=== PATIENT | male | born 1950 | race Caucasian/White ===

== ENCOUNTER → 2021-08-07 14:40 | Outpatient (CLI) | payer OTHER, SELFPAY ==
--- NOTE | 2021-08-07 | DI.ECHO.S_ITS ---
[facility] +---------+ : : [address] : : : : [id number] : : : : Phone: [phone]+ Echocardiogram Report + + :Name: DEMOND FERNANDEZ Study Date: 08/07/2021 Height: 73 in : :[facility] ReadingLocation: Weight: 255 lb : : Gender: Male BSA: 2.4 m2 : :: 1950 Age: 71 yrs BP: 160/88 mmHg: :Reason For Study: Congestive Heart Failure : : Performed By: Mahesh Cummins : :Referring: CRISTIANO CHANDLER W : + + Interpretation Summary The left ventricle is normal in size. There is mild concentric left ventricular hypertrophy. The ejection fraction is estimated to be 55-60%. MV E/A: 1.3 Med Peak E' Johnathan: 7.6 cm/sec E/E' med: 11.0 The right ventricle is normal in size and function. There is mild to moderate mitral regurgitation. There is mild to moderate tricuspid regurgitation. The right ventricular systolic pressure is estimated to be at least 33 mmHg based on an estimated right atrial pressure of 3 mm Hg. However Doppler profile across pulmonary valve suggest pulmonary hypertension. Procedure: A two-dimensional transthoracic echocardiogram with color flow and Doppler was performed. The study quality was technically adequate. The patient was in normal sinus rhythm during the exam. The patient had a bundle branch block rhythm during the exam. The patient had frequent PVCs during the exam. Left Ventricle: The left ventricle is normal in size. There is mild concentric left ventricular hypertrophy. There is no thrombus. Left ventricular systolic function is normal. The ejection fraction is estimated to be 55-60%. There are no focal wall motion abnormalities. MV E/A: 1.3 Med Peak E' Johnathan: 7.6 cm/sec E/E' med: 11.0. Right Ventricle: The right ventricle is normal in size and function. Atria: The left atrium is mildly dilated. Right atrial size is normal. A prominent eustachian valve is noted. The interatrial septum grossly appears intact with no obvious evidence for an atrial septal defect. Mitral Valve: The mitral valve leaflets are slightly calcified. The mitral valve leaflets appear mildly thickened, but open well. There is mild to moderate mitral regurgitation. Aortic Valve: The aortic valve is normal in structure and function. The aortic valve is trileaflet. There is no aortic valve stenosis. No aortic regurgitation is present. Tricuspid Valve: The tricuspid valve is normal. There is mild to moderate tricuspid regurgitation. The right ventricular systolic pressure is estimated to be at least 33 mmHg based on an estimated right atrial pressure of 3 mm Hg. Pulmonic Valve: The pulmonic valve is normal in structure and function. There is trace pulmonic regurgitation. Great Vessels: The aortic root is normal size. The dimensions of the ascending aorta are normal. The IVC is of normal diameter and collapses greater than 50% with a sniff. This suggests a low right atrial pressure of 3 mm Hg. Pericardium/ Pleura There is no pericardial effusion. There is no pleural effusion. MMode/2D Measurements & Calculations LVIDd: 5.4 cm LVOT diam: 2.1 cm LVIDs: 3.4 cm Ao root diam: 3.2 cm FS: 38.1 % asc Aorta Diam: 3.2 cm IVSd: 1.3 cm LVPWd: 1.3 cm LV parikh. diameter/BSA (cm/m^2): 2.3 LV sys. diameter/BSA (cm/m^2): 1.4 LA A2 area: 27.0 cm2 RA long axis: 6.3 cm LA A4 area: 27.7 cm2 RA area: 17.4 cm2 LA length (vol): 6.7 cm RA vol: 40.5 ml LA vol: 93.9 ml RA : 17.0 ml/m2 LA vol index: 39.4 ml/m2 TAPSE: 2.6 cm Doppler Measurements & Calculations Ao V2 max: 126.7 cm/sec LVOT Max Johnathan: 130.8 cm/sec Ao V2 mean: 91.5 cm/sec LV V1 max P.8 mmHg Ao max P.4 mmHg LV V1 VTI: 26.9 cm Ao mean P.7 mmHg FRANK(I,D): 3.4 cm2 Ao V2 VTI: 27.2 cm FRANK(V,D): 3.6 cm2 sev ratio: 0.99 FRANK indexed to BSA (cm^2/m^2): 1.4 MV E max johnathan: 83.8 cm/sec TR max johnathan: 272.5 cm/sec MV A max johnathan: 67.0 cm/sec TR max P.7 mmHg MV E/A: 1.3 Med Peak E' Johnathan: 7.6 cm/sec E/E' med: 11.0 Lat Peak E' Johnathan: 11.4 cm/sec E/E' lat: 7.4 E/e' average: 9.2 MV dec time: 0.17 sec [facility] 93.2 ml Reading Physician:06:48 PM
== END ==
PROVIDERS: PCP Internal Medicine; Referring Provider Internal Medicine; Visit Provider Internal Medicine
DX: I08.1 Rheumatic disorders of both mitral and tricuspid valves (principal); I50.30 Unspecified diastolic (congestive) heart failure
CPT/HCPCS: 93306

== ENCOUNTER 2023-02-02 11:56 | Emergency (ER) | payer OTHER, SELFPAY ==
[2023-02-02] VITALS (7 sets, daily range): BP systolic 125–155; BP diastolic 72–78; PULSE 66–80; RESP 18–20; TEMP 36.6; O2SAT 97–99; BMI 33.0
[2023-02-02 12:56] LABS: Add Manual Diff / Slide Review NO; Basophils Absolute Auto 0 /uL (0-100); Basophils Percent Auto 0.6 % (0-2); Eosinophils Absolute Auto 100 /uL (0-450); Eosinophils Percent Auto 1.2 % (2-4); Hematocrit 41.4 % (41-53); Hemoglobin 14.1 g/dL (13.5-17.5); Lymphocytes Absolute Auto 1800 /uL (1100-4500); Lymphocytes Percent Auto 23.5 % (25-40); Mean Corpuscular HGB Conc 33.9 % (30-36); Mean Corpuscular Volume 85.5 fL (80-100); Monocytes Absolute Auto 500 /uL (0-900); Monocytes Percent Auto 7.2 % (3-14); Neutrophils Absolute Auto 5000 /uL (1500-7000); Neutrophils Percent Auto 67.5 % (50-75); Platelet Count 260 X10^3/uL (150-400); Red Blood Cell Count 4.84 X10^6/uL (4.5-5.9); Red Cell Distribution Width 14.4 % (11.6-14.8); White Blood Cell Count 7.5 X10^3/uL (4.5-11.0)
[2023-02-02 13:11] LABS: Bacteria Urine Occasional (0-1); RBC Urine 1-5/HPF (0-5/HPF); Squamous Epithelial Cell Urine 1-5 /HPF (0-5/HPF); WBC Urine 5-10/HPF (0-5/HPF)
[2023-02-02 13:22] LABS: Alanine Aminotransferase 51 IU/L (<50); Albumin 3.8 g/dL (3.5-5.0); Albumin Globulin Ratio 1.1 (1.0-2.8); Alkaline Phosphatase 211 U/L (38-126); Aspartate Aminotransferase 52 IU/L (17-59); BUN Creatinine Ratio 14.9 (6-22); Bilirubin Total 0.5 mg/dL (0.2-1.3); Blood Urea Nitrogen 13 mg/dL (9-20); Calcium 9.4 mg/dL (8.4-10.2); Carbon Dioxide 25 mmol/L (22-32); Chloride 106 mmol/L (98-107); Estimated Glomerular Filt Rate > 60 mL/min (>60); Globulin 3.4 g/dL (1.7-4.1); Glucose 177 mg/dL (80-110); HEMOLYSIS 30 (0-50); Lipase 51 U/L (23-300); Potassium 3.2 mmol/L (3.4-5.1); Sodium 141 mmol/L (137-145); Total Protein 7.2 g/dL (6.3-8.2)
--- NOTE | 2023-02-02 14:28 | DI.CT.S_ITS ---
PROCEDURE: CT ABDOMEN PELVIS W CON INDICATIONS: left lower quadrant pain TECHNIQUE: After the administration of intravenous contrast, axial sections acquired from the lung bases to the pubic symphysis. Coronal and sagittal reformats were performed. For radiation dose reduction, the following was used: automated exposure control, adjustment of mA and/or kV according to patient size. COMPARISON: None. FINDINGS: Image quality: Excellent. Lung bases: Scattered atelectasis in posterior and lateral periphery of bilateral lung bases are seen. No pleural effusion or pneumothorax. Heart: No significant findings. ABDOMEN: Liver: 2.6 x 2.7 cm well-circumscribed hypodensity involving left hepatic dome is seen series 2, image 16 and measures -3.6 Hounsfield unit in density . Similar smaller hypodensity in lateral segment of left hepatic lobe is also seen measures 1.3 x 1.2 cm in size. No gross solid appearing hepatic lesion is seen. Gallbladder: Gallbladder is surgically absent. Biliary ducts: Unremarkable. Pancreas: Unremarkable. Spleen: Unremarkable. Adrenal Glands: Fat density nodule involving right adrenal gland is seen measures 2.4 x 2.7 cm in size series 2, image 34. Thickened left adrenal gland is noted without definite left adrenal nodule. Kidneys and Ureters: Small bilateral renal cortical cysts are seen. No renal stones or hydronephrosis.. Stomach and Bowel: St there is a small hiatal hernia. No gastric or small bowel wall thickening. Appendix is visualized in right lower quadrant and is normal in size and appearance. Sigmoid diverticulosis is seen. There is suggestion of mild pericolonic fat stranding involving proximal sigmoid colon in left lower quadrant with diffuse sigmoid colon wall thickening. There is no abscess collection. Peritoneum: No abnormal intraperitoneal fluid. No free air. Ventral Wall: No hernias. Abdominal Nodes: No retroperitoneal or mesenteric adenopathy by size criteria. Vessels: Aorta and inferior vena cava are normal in size. PELVIS: Pelvic Organs: Enlarged prostate gland with mass effect on floor of urinary bladder is seen. Bladder: Diffuse bladder wall thickening is noted, no gross bladder wall mass. Pelvic Nodes: No enlarged lymph nodes. Miscellaneous: Bilateral inguinal hernia are seen containing fat only. Bones: No suspicious bony lesions. No acute vertebral body compression fracture. Degenerative disc disease throughout lower thoracic and lumbar spine is seen. IMPRESSION: 1. Sigmoid diverticulosis with mild proximal sigmoid colon wall thickening and subtle adjacent pericolonic fat stranding concerning for early developing diverticulitis. No abscess collection. No signs of perforation. No free fluid or free air. 2. 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 Mild diffuse bladder wall thickening likely due to chronic urinary outlet obstruction. No discrete bladder wall mass. No obstructing renal stones or hydronephrosis. Small bilateral renal cysts. 3. Likely benign cysts in left hepatic lobe as above. Dictated by: Lew Ontiveros M.D. on 02/02/2023 at 15:05 Approved by: Lew Ontiveros M.D. on 02/02/2023 at 15:11
--- NOTE | 2023-02-02 14:30 | ED.ABDPAIN ---
HPI - Abdominal Pain General Chief Complaint: Abdominal Pain Stated Complaint: Diverticulitis flare Time Seen by Provider: 02/02/23 13:39 Source: patient Mode of arrival: Ambulatory History of Present Illness HPI narrative: Patient here with complains 2 or 3 weeks left lower quadrant pain. Does not radiate. No urinary complaints. Has had chills. No vomiting or diarrhea no black or bloody stools. Colonoscopy in the past, 3 years ago does show diverticulosis. Patient has never had diverticulitis. Pain is essentially every day but waxes and wanes. It was slow onset. Sharp pain is how he describes it. Currently 06/25 but he does not want anything for it. Related Data Previous Rx's Medication Instructions Recorded ciprofloxacin HCl 500 mg tablet 500 mg PO BID #14 tabs 02/02/23 (Cipro) metronidazole 500 mg tablet 500 mg PO TID #21 tabs 02/02/23 Allergies Allergy/AdvReac Type Severity Reaction Status Date / Time doxycycline Allergy Dizziness Verified 02/02/23 12:29 Sulfa (Sulfonamide Allergy Rash Verified 02/02/23 12:22 Antibiotics) Review of Systems Review of Systems Narrative: GENERAL: Positive chills, fatigue, malaise, negative fever, sweats. HEENT: negative sinus pain, ear pain, sore throat RESPIRATORY: negative dyspnea, cough CARDIOVASCULAR: negative chest pain, palpitations GASTROINTESTINAL: negative nausea, vomiting, positive abdominal pain : negative dysuria, frequency, hematuria MUSCULOSKELETAL: negative muscle or bony pain SKIN: negative rash, skin lesions NEUROLOGIC: negative weakness, numbness ROS Unobtainable: All systems reviewed & are unremarkable except as noted in HPI and below Patient History Social History Smoking Status: Never smoker Smoking Status: Never smoker alcohol intake frequency: holidays/special occasions only Substance Use Type: does not use Exam Narrative Exam Narrative: GENERAL: in no distress, not toxic not dyspneic HEAD: Normocephalic. EYES: Pupils equal round ENT: Mucous membranes moist. NECK: Trachea midline. CARDIOVASCULAR: Regular rate and rhythm RESPIRATORY: Clear to auscultation. Breath sounds equal bilaterally. No wheezes, rales, or rhonchi. GASTROINTESTINAL: Abdomen soft, non-tender abdomen is soft nontender no peritoneal signs no left lower quadrant tenderness. No peritoneal signs no rebound tenderness no CVA tenderness bowel sounds are present. No pain out of proportion to exam EXTREMITIES: No gross deformities. BACK: No flank tenderness. NEURO: AOx4. Clear speech SKIN: Warm and dry PSYCH: Not anxious, is cooperative Initial Vital Signs Initial Vital Signs: Vital Signs Temperature 97.9 F 02/02/23 12:22 Pulse Rate 80 02/02/23 12:22 Respiratory Rate 18 02/02/23 12:22 Blood Pressure 155/78 H 02/02/23 12:22 Pulse Oximetry 99 02/02/23 12:22 Oxygen Delivery Method Room Air 02/02/23 12:22 Course Orders Ordered: Discontinued Medications Ciprofloxacin (Ciprofloxacin 250 Mg Tablet) 500 mg PO NOW ONE Stop: 02/02/23 15:33 Last Admin: 02/02/23 15:40 Dose: 500 mg Documented By: KODAK Sodium Chloride (Normal Saline 0.9%) 500 mls @ 1,000 mls/hr IV BOLUS ONE Stop: 02/02/23 14:57 Last Infusion: 02/02/23 15:47 Dose: Infused Documented By: Admin: 02/02/23 14:49 Dose: 1,000 mls/hr Documented By: Metronidazole (Metronidazole 500 Mg Tablet) 500 mg PO NOW ONE Stop: 02/02/23 15:33 Last Admin: 02/02/23 15:40 Dose: 500 mg Documented By: KODAK Ondansetron HCl (Ondansetron 4 Mg Odt) 4 mg PO NOW PRN PRN Reason: Nausea And Vomiting Ondansetron HCl (Ondansetron 4 Mg/2 Ml Inj) 4 mg IV NOW PRN PRN Reason: Nausea And Vomiting Vital Signs Vital signs: Vital Signs - 8 hr 02/02/23 12:22 02/02/23 13:19 02/02/23 13:30 Temperature 97.9 F Pulse Rate 80 71 74 Respiratory Rate 18 20 20 Blood Pressure 155/78 H 154/74 H 125/74 Pulse Oximetry 99 98 98 Oxygen Delivery Method Room Air Room Air 02/02/23 14:00 02/02/23 14:30 02/02/23 15:18 Temperature Pulse Rate 66 77 72 Respiratory Rate 20 18 Blood Pressure 125/76 148/76 H Pulse Oximetry 98 97 98 Oxygen Delivery Method Room Air Room Air Room Air MDM - Abdominal Pain Lab Data 02/02/23 12:46 02/02/23 12:46 Labs: Lab Results 02/02/23 02/02/23 Range/Units 12:30 12:46 WBC 7.5 (4.5-11.0) X10^3/uL RBC 4.84 (4.5-5.9) X10^6/uL Hgb 14.1 (13.5-17.5) g/dL Hct 41.4 (41-53) % MCV 85.5 (80-100) fL MCH 29.0 (26-34) PG MCHC 33.9 (30-36) % RDW 14.4 (11.6-14.8) % Plt Count 260 (150-400) X10^3/uL Neut % (Auto) 67.5 (50-75) % Lymph % (Auto) 23.5 L (25-40) % [place] % (Auto) 7.2 (3-14) % Eos % (Auto) 1.2 L (2-4) % Baso % (Auto) 0.6 (0-2) % Neut # (Auto) 5000 (3066-4973) /uL Lymph # (Auto) 1800 (1414-7263) /uL [place] # (Auto) 500 (0-900) /uL Eos # (Auto) 100 (0-450) /uL Baso # (Auto) 0 (0-100) /uL Sodium 141 (137-145) mmol/L Potassium 3.2 L (3.4-5.1) mmol/L Chloride 106 (98-107) mmol/L Carbon Dioxide 25 (22-32) mmol/L BUN 13 (9-20) mg/dL Creatinine 0.87 (0.66-1.25) mg/dL Estimated GFR > 60 (>60) mL/min BUN/Creatinine Ratio 14.9 (6-22) Glucose 177 H (80-110) mg/dL Calcium 9.4 (8.4-10.2) mg/dL Total Bilirubin 0.5 (0.2-1.3) mg/dL AST 52 (17-59) IU/L ALT 51 H (<50) IU/L Alkaline Phosphatase 211 H (38-126) U/L Total Protein 7.2 (6.3-8.2) g/dL Albumin 3.8 (3.5-5.0) g/dL Globulin 3.4 (1.7-4.1) g/dL Albumin/Globulin Ratio 1.1 (1.0-2.8) Lipase 51 (23-300) U/L Urine RBC 1-5/hpf (0-5/HPF) Urine WBC 5-10/hpf H (0-5/HPF) Ur Squamous Epith Cells 1-5 /hpf (0-5/HPF) Urine Bacteria Occasional (0-1) (None) Ur Culture Indicated? TNP Point of care testing: Urine Dip Bedside Urine Glucose Negative Bedside Urine Bilirubin - Negative Bedside Urine Ketone - Negative Urine Specific [place] 1.010 Bedside Urine Occult Blood - Negative Bedside Urine pH 6.0 Bedside Urine Protein - Negative Bedside Urine Urobilinogen 0.2 Bedside Urine Nitrite - Negative Bedside Urine Leukocytes +++ [address] scan - abdomen/pelvis: Radiologist's Impression: [address] [address] [address] Scan Report Signed Patient: Brittanie Aguilar MR#: [id number] : 1950 Acct:[id number] Age/Sex: 73 / M Date of Service: 02/02/23 Loc: ED Accession Number: [id number] Procedure: CT abdomen pelvis w con Ordering Provider: Scott Navarro MD PROCEDURE: CT ABDOMEN PELVIS W CON INDICATIONS: left lower quadrant pain TECHNIQUE: After the administration of intravenous contrast, axial sections acquired from the lung bases to the pubic symphysis. Coronal and sagittal reformats were performed. For radiation dose reduction, the following was used: automated exposure control, adjustment of mA and/or kV according to patient size. COMPARISON: None. FINDINGS: Image quality: Excellent. Lung bases: Scattered atelectasis in posterior and lateral periphery of bilateral lung bases are seen. No pleural effusion or pneumothorax. Heart: No significant findings. ABDOMEN: Liver: 2.6 x 2.7 cm well-circumscribed hypodensity involving left hepatic dome is seen series 2, image 16 and measures -3.6 Hounsfield unit in density . Similar smaller hypodensity in lateral segment of left hepatic lobe is also seen measures 1.3 x 1.2 cm in size. No gross solid appearing hepatic lesion is seen. Gallbladder: Gallbladder is surgically absent. Biliary ducts: Unremarkable. Pancreas: Unremarkable. Spleen: Unremarkable. Adrenal Glands: Fat density nodule involving right adrenal gland is seen measures 2.4 x 2.7 cm in size series 2, image 34. Thickened left adrenal gland is noted without definite left adrenal nodule. Kidneys and Ureters: Small bilateral renal cortical cysts are seen. No renal stones or hydronephrosis.. Stomach and Bowel: St there is a small hiatal hernia. No gastric or small bowel wall thickening. Appendix is visualized in right lower quadrant and is normal in size and appearance. Sigmoid diverticulosis is seen. There is suggestion of mild pericolonic fat stranding involving proximal sigmoid colon in left lower quadrant with diffuse sigmoid colon wall thickening. There is no abscess collection. Peritoneum: No abnormal intraperitoneal fluid. No free air. Ventral Wall: No hernias. Abdominal Nodes: No retroperitoneal or mesenteric adenopathy by size criteria. Vessels: Aorta and inferior vena cava are normal in size. PELVIS: Pelvic Organs: Enlarged prostate gland with mass effect on floor of urinary bladder is seen. Bladder: Diffuse bladder wall thickening is noted, no gross bladder wall mass. Pelvic Nodes: No enlarged lymph nodes. Miscellaneous: Bilateral inguinal hernia are seen containing fat only. Bones: No suspicious bony lesions. No acute vertebral body compression fracture. Degenerative disc disease throughout lower thoracic and lumbar spine is seen. IMPRESSION: 1. Sigmoid diverticulosis with mild proximal sigmoid colon wall thickening and subtle adjacent pericolonic fat stranding concerning for early developing diverticulitis. No abscess collection. No signs of perforation. No free fluid or free air. 2. 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 Mild diffuse bladder wall thickening likely due to chronic urinary outlet obstruction. No discrete bladder wall mass. No obstructing renal stones or hydronephrosis. Small bilateral renal cysts. 3. Likely benign cysts in left hepatic lobe as above. Dictated by: Lew Ontiveros M.D. on 02/02/2023 at 15:05 Approved by: Lew Ontiveros M.D. on 02/02/2023 at 15:11 MDM Narrative Medical decision making narrative: Patient here with complains 2 or 3 weeks left lower quadrant pain. Does not radiate. No urinary complaints. Has had chills. No vomiting or diarrhea no black or bloody stools. Colonoscopy in the past, 3 years ago does show diverticulosis. Patient has never had diverticulitis. Pain is essentially every day but waxes and wanes. It was slow onset. Sharp pain is how he describes it. Currently 3/10 but he does not want anything for it. After history and exam CBC CMP urinalysis CT abdomen pelvis normal saline, patient does not want anything for discomfort MDM CC: Left lower quadrant pain Complicating co-morbidities: Diverticulosis Data collected from: Patient and Medical records reviewed: No recent visit for this complaint Differential considered: Includes but not limited to diverticulitis colitis UTI kidney stone hernia Exam documented above, pertinent findings include: Nontender abdomen Lab Test results independently reviewed as above. Pertinent findings: WBC 7.5 hemoglobin 14.1 sodium 141 potassium 3.2 glucose 177 ALT 51 AST T 52 total bilirubin 0.5 Urinalysis WBC 5-10 occasional bacteria Imaging studies independently reviewed: CT abdomen pelvis impression sigmoid diverticulitis Consultations: None indicated this time, patient does have provider that does his colonoscopy is to follow up with Treatments: Normal saline Cipro Flagyl Re-evaluations: Reviewed results with patient and . Pain is controlled. He does not want anything for pain. He does understand treatment plan and he will follow up with his provider that does colonoscopies, he will call tomorrow to make appointment. Return precautions reviewed with them. They desire discharge home. Not toxic at discharge. Discussion: Appropriate for discharge home. Antibiotics were started here. Reviewed results with patient and . Not toxic at discharge. Return precautions reviewed. Exam and laboratory studies imaging otherwise reassuring. Patient desires home trial of outpatient antibiotics for diverticulitis. Diagnosis: Acute diverticulitis Discharge Plan Departure Patient Disposition: Home Clinical Impression: Diverticulitis Instructions: DI for Diverticulitis Activity Restrictions/Additional Instructions: Your workup and CT scan today shows diverticulitis causing discomfort. Please continue antibiotics that were sent to your pharmacy. Please call the provider that does your colonoscopy this week to schedule repeat colonoscopy for this year. Return if worse if any questions or concerns. May take Tylenol or ibuprofen for pain. Prescriptions: New metronidazole 500 mg tablet 500 mg PO TID Qty: 21 0RF ciprofloxacin HCl [Cipro] 500 mg tablet 500 mg PO BID Qty: 14 0RF Referrals: Anibal Nguyễn MD [Primary Care Provider] - Stand Alone Forms: Patient Portal/API
[2023-02-02] MEDS: SODIUM CHLORIDE 0.9% 500 ML 1000 ML IV (14:49)
[2023-02-02] MEDS: metroNIDAZOLE 500 MG TABLET PO (15:40)
[2023-02-02] MEDS: CIPROFLOXACIN 250 MG TABLET 500 MG PO (15:40)
== END 2023-02-02 15:55 | disposition home or self-care (01) ==
PROVIDERS: Emergency Provider Emergency Medicine; PCP Internal Medicine
DX: K57.92 Diverticulitis of intestine, part unspecified, without perforation or abscess without bleeding (principal)
CPT/HCPCS: 36415; 74177; 80053; 81003; 81015; 83690; 85025; 87086; 96360; 99284; Q9967

== ENCOUNTER 2023-03-16 10:07 | Emergency (ER) | payer OTHER, SELFPAY ==
[2023-03-16] VITALS (7 sets, daily range): BP systolic 134–176; BP diastolic 76–84; PULSE 67–78; RESP 14; TEMP 36.3; O2SAT 97–99; BMI 32.5
--- NOTE | 2023-03-16 10:21 | DI.CT.S_ITS ---
PROCEDURE: CT ABDOMEN PELVIS W CON INDICATIONS: RLQ PAIN TECHNIQUE: After the administration of oral and IV contrast, axial sections were acquired from the lung bases to the pubic symphysis. Coronal and sagittal reformats were performed. For radiation dose reduction, the following was used: automated exposure control, adjustment of mA and/or kV according to patient size. COMPARISON: [facility], CT, CT ABDOMEN PELVIS W CON, 02/02/2023, 14:34. FINDINGS: Image quality: Excellent. Lung bases: Left lobe daily hernia containing fat. Heart: No significant findings. ABDOMEN: Liver: No solid mass. Gallbladder: Cholecystectomy. Biliary ducts: No biliary dilation. Pancreas: No ductal dilation. Spleen: Size is within normal limits. Calcified granuloma. 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 Additional 1.2 centimeter right adrenal nodule (series 2, image 27). Kidneys and Ureters: No hydronephrosis. No solid mass. No complex renal cystic lesion which requires follow up. Punctate nonobstructing right-sided nephrolithiasis. Stomach and Bowel: Normal colonic caliber, without significant wall thickening. Colonic diverticulosis without evidence of diverticulitis. Fecal debris within the small-bowel, usually indicating small intestinal bacterial overgrowth versus slow transit. Normal appendix. Peritoneum: No abnormal intraperitoneal fluid. No free air. Ventral Wall: No hernia. Abdominal Nodes: No retroperitoneal or mesenteric adenopathy by size criteria. Vessels: Aorta and inferior vena cava are normal in size. PELVIS: Pelvic Organs: Prostatomegaly. Bladder: Trabeculated bladder wall, with bladder wall diverticula. Pelvic Nodes: No enlarged lymph nodes. Miscellaneous: Moderate, bilateral, fat containing inguinal hernias. Bones: Unremarkable. IMPRESSION: No findings to explain the patient's right lower quadrant pain. Normal appendix. No nephrolithiasis. Colonic diverticulosis without evidence of diverticulitis. Fecal debris within the small-bowel, usually indicating small intestinal bacterial overgrowth versus slow transit. 1.2 centimeter right adrenal nodule. Recommend outpatient evaluation with CT or MRI (adrenal mass protocol). Dictated by: Carlos Enrique Freire M.D. on 03/16/2023 at 11:36 Approved by: Carlos Enrique Freire M.D. on 03/16/2023 at 11:40
--- NOTE | 2023-03-16 10:27 | ED.ABDPAIN ---
HPI - Abdominal Pain General Chief Complaint: Abdominal Pain Stated Complaint: abd pain t-30 Time Seen by Provider: 03/16/23 10:09 Source: patient Mode of arrival: Ambulatory History of Present Illness HPI narrative: 73-year-old male presents by private vehicle from home for 3 weeks of intermittent, sharp, nonradiating right-sided abdominal pain, worse with movements. Patient states that 1 month ago he was diagnosed with diverticulitis and he was treated with antibiotics. He is concerned that his appendix may be flaring up and he can not get a primary care appointment so he is here today for evaluation. Denies fevers, chills, nausea, vomiting, constipation, diarrhea. Pain-free currently. Related Data Previous Rx's Medication Instructions Recorded ciprofloxacin HCl 500 mg tablet 500 mg PO BID #14 tabs 02/02/23 (Cipro) metronidazole 500 mg tablet 500 mg PO TID #21 tabs 02/02/23 Allergies Allergy/AdvReac Type Severity Reaction Status Date / Time doxycycline Allergy Dizziness Verified 03/16/23 10:16 Sulfa (Sulfonamide Allergy Rash Verified 03/16/23 10:16 Antibiotics) Review of Systems Review of Systems Narrative: Negative except as noted above Patient History Social History Smoking Status: Never smoker Smoking Status: Never smoker alcohol intake frequency: holidays/special occasions only Substance Use Type: does not use Exam Initial Vital Signs Initial Vital Signs: Vital Signs Temperature 97.4 F L 03/16/23 10:09 Pulse Rate 78 03/16/23 10:09 Respiratory Rate 14 03/16/23 10:09 Blood Pressure 171/84 H 03/16/23 10:09 Pulse Oximetry 97 03/16/23 10:09 Oxygen Delivery Method Room Air 03/16/23 10:09 Const: Awake, alert, no acute distress, nontoxic appearing Eyes: PERRL, EOMI, conjunctiva normal ENT: Atraumatic, dentition normal, mucous membranes moist Cardiac: regular rate, regular rhythm RESP: unlabored, clear bilaterally, no wheezing GI: Atraumatic, soft, nontender, nondistended, no rebound, no guarding MSK: Atraumatic, full range of motion, pulses equal Skin: Warm, Dry, intact, no rashes Neuro: AO x3, CN II-XII grossly intact, moves all extremities Psych: affect normal, mood normal, not suicidal, not homicidal Course Orders Ordered: Discontinued Medications Ondansetron HCl (Ondansetron 4 Mg/2 Ml Inj) 4 mg IV NOW PRN PRN Reason: Nausea And Vomiting Vital Signs Vital signs: Vital Signs - 8 hr 03/16/23 10:09 03/16/23 10:12 03/16/23 10:13 Temperature 97.4 F L Pulse Rate 78 78 Respiratory Rate 14 Blood Pressure 171/84 H 171/84 H Pulse Oximetry 97 98 Oxygen Delivery Method Room Air 03/16/23 10:13 03/16/23 10:30 03/16/23 10:30 Temperature Pulse Rate 77 68 Respiratory Rate Blood Pressure 176/82 H Pulse Oximetry 98 97 Oxygen Delivery Method MDM - Abdominal Pain Differential Diagnosis Differential diagnosis: Likely abdominal pain, acute appendicitis and calculus of kidney Lab Data 03/16/23 10:26 03/16/23 10:26 Labs: Lab Results 03/16/23 03/16/23 Range/Units 10:26 10:40 WBC 7.9 (4.5-11.0) X10^3/uL RBC 4.84 (4.5-5.9) X10^6/uL Hgb 14.1 (13.5-17.5) g/dL Hct 41.0 (41-53) % MCV 84.7 (80-100) fL MCH 29.0 (26-34) PG MCHC 34.3 (30-36) % RDW 14.9 H (11.6-14.8) % Plt Count 217 (150-400) X10^3/uL Neut % (Auto) 57.2 (50-75) % Lymph % (Auto) 31.7 (25-40) % [place] % (Auto) 8.5 (3-14) % Eos % (Auto) 1.7 L (2-4) % Baso % (Auto) 0.9 (0-2) % Neut # (Auto) 4500 (2620-9615) /uL Lymph # (Auto) 2500 (5191-8407) /uL [place] # (Auto) 700 (0-900) /uL Eos # (Auto) 100 (0-450) /uL Baso # (Auto) 100 (0-100) /uL Sodium 139 (137-145) mmol/L Potassium 4.0 (3.4-5.1) mmol/L Chloride 106 (98-107) mmol/L Carbon Dioxide 26 (22-32) mmol/L BUN 17 (9-20) mg/dL Creatinine 0.90 (0.66-1.25) mg/dL Estimated GFR > 60 (>60) mL/min BUN/Creatinine Ratio 18.9 (6-22) Glucose 136 H (80-110) mg/dL Calcium 9.5 (8.4-10.2) mg/dL Total Bilirubin 0.8 (0.2-1.3) mg/dL AST 31 (17-59) IU/L ALT 27 (<50) IU/L Alkaline Phosphatase 200 H (38-126) U/L Total Protein 7.5 (6.3-8.2) g/dL Albumin 4.1 (3.5-5.0) g/dL Globulin 3.4 (1.7-4.1) g/dL Albumin/Globulin Ratio 1.2 (1.0-2.8) Lipase 47 (23-300) U/L Urine Color Yellow Urine Appearance Clear Urine pH 6.0 (4.5-8.0) Ur Specific [place] 1.010 (1.000-1.035) Urine Protein Negative (Negative) Urine Glucose (UA) Negative (Negative) g/dL Urine Ketones Negative (NEGATIVE) Urine Occult Blood Negative (Negative) Urine Nitrate Negative (Negative) Urine Bilirubin Negative (NEGATIVE) Urine Urobilinogen 0.2 (0.2) E.U./dL Ur Leukocyte Esterase 2+ H (NEGATIVE) Urine RBC None seen (0-5/HPF) Urine WBC 1-5/hpf (0-5/HPF) Ur Squamous Epith Cells 0-1 /hpf (0-5/HPF) Urine Bacteria Occasional (0-1) (None) Ur Culture Indicated? Cult not indicated MDM Narrative Medical decision making narrative: Well-appearing patient with 3 weeks of intermittent symptoms. To do the duration of patient's symptoms appendicitis is highly unlikely. We will order CT scan to assess for kidney stone or other possible acute pathology. Patient pain-free at this time. Labs and imaging are unremarkable. Patient has remained pain-free. All lab and imaging findings discussed with patient and family at bedside, explained to do not know the cause of his symptoms were recommended follow up with PCP. Patient states that he has an upcoming GI appointment and can discuss his pain with them if it is still present at his appointment. ED return precautions discussed at bedside. Patient expressed understanding of the plan and is in agreement at this time. All questions answered at the time of discharge. Discharge Plan Departure Patient Disposition: Home Clinical Impression: Abdominal pain Qualifiers: Abdominal location: right lower quadrant Qualified Code(s): R10.31 - Right lower quadrant pain Instructions: DI for Abdominal Pain-Adult Prescriptions: No Action metronidazole 500 mg tablet 500 mg PO TID Qty: 21 0RF ciprofloxacin HCl [Cipro] 500 mg tablet 500 mg PO BID Qty: 14 0RF Referrals: Ely Chapin PA-C [Primary Care Provider] - Stand Alone Forms: Patient Portal/API
[2023-03-16 10:34] LABS: Add Manual Diff / Slide Review NO; Basophils Absolute Auto 100 /uL (0-100); Basophils Percent Auto 0.9 % (0-2); Eosinophils Absolute Auto 100 /uL (0-450); Eosinophils Percent Auto 1.7 % (2-4); Hemoglobin 14.1 g/dL (13.5-17.5); Lymphocytes Absolute Auto 2500 /uL (1100-4500); Lymphocytes Percent Auto 31.7 % (25-40); Mean Corpuscular HGB Conc 34.3 % (30-36); Mean Corpuscular Volume 84.7 fL (80-100); Monocytes Absolute Auto 700 /uL (0-900); Monocytes Percent Auto 8.5 % (3-14); Neutrophils Absolute Auto 4500 /uL (1500-7000); Neutrophils Percent Auto 57.2 % (50-75); Platelet Count 217 X10^3/uL (150-400); Red Blood Cell Count 4.84 X10^6/uL (4.5-5.9); Red Cell Distribution Width 14.9 % (11.6-14.8); White Blood Cell Count 7.9 X10^3/uL (4.5-11.0)
[2023-03-16 10:44] LABS: Appearance Urine UA CLEAR; Bilirubin Urine UA NEGATIVE (NEGATIVE); Color Urine UA YELLOW; Glucose Urine UA NEGATIVE (Negative); Ketones Urine UA NEGATIVE (NEGATIVE); Leukocyte Esterase Urine UA 2+ (NEGATIVE); Nitrite Urine UA NEGATIVE (Negative); Occult Blood Urine UA NEGATIVE (Negative); Protein Urine UA NEGATIVE (Negative); Urobilinogen Urine UA 0.2 E.U./dL (0.2)
[2023-03-16 10:52] LABS: Bacteria Urine Occasional (0-1); Culture Indicated Urine Cult Not Indicated; RBC Urine None Seen (0-5/HPF); Squamous Epithelial Cell Urine 0-1 /HPF (0-5/HPF); WBC Urine 1-5/HPF (0-5/HPF)
[2023-03-16 10:55] LABS: Alanine Aminotransferase 27 IU/L (<50); Albumin 4.1 g/dL (3.5-5.0); Albumin Globulin Ratio 1.2 (1.0-2.8); Alkaline Phosphatase 200 U/L (38-126); Aspartate Aminotransferase 31 IU/L (17-59); BUN Creatinine Ratio 18.9 (6-22); Bilirubin Total 0.8 mg/dL (0.2-1.3); Blood Urea Nitrogen 17 mg/dL (9-20); Calcium 9.5 mg/dL (8.4-10.2); Carbon Dioxide 26 mmol/L (22-32); Chloride 106 mmol/L (98-107); Estimated Glomerular Filt Rate > 60 mL/min (>60); Globulin 3.4 g/dL (1.7-4.1); Glucose 136 mg/dL (80-110); HEMOLYSIS < 15 (0-50); Lipase 47 U/L (23-300); Sodium 139 mmol/L (137-145); Total Protein 7.5 g/dL (6.3-8.2)
== END 2023-03-16 11:59 | disposition home or self-care (01) ==
PROVIDERS: Emergency Provider Emergency Medicine; PCP Physician Assistant
DX: K57.30 Diverticulosis of large intestine without perforation or abscess without bleeding (principal); R10.31 Right lower quadrant pain; E27.8 Other specified disorders of adrenal gland
CPT/HCPCS: 36415; 74177; 80053; 81001; 83690; 85025; 96374; 99283; 99284; Q9967

== ENCOUNTER 2023-08-27 09:02 | Emergency (ER) | payer OTHER, SELFPAY ==
[2023-08-27] VITALS (12 sets, daily range): BP systolic 150–218; BP diastolic 71–103; PULSE 85–124; RESP 16–33; TEMP 36.6; O2SAT 96–99; BMI 34.3
--- NOTE | 2023-08-27 09:04 | DI.CT.S_ITS ---
PROCEDURE: CT STROKE INDICATIONS: R hemiplegia TECHNIQUE: Noncontrast 4.5 mm thick angled axial sections acquired from the foramen magnum to the vertex, with coronal reformats. For radiation dose reduction, the following was used: automated exposure control, adjustment of mA and/or kV according to patient size. COMPARISON: None. FINDINGS: Image quality: Diagnostic. CSF spaces: Intraventricular hemorrhage without hydrocephalus Brain: Left thalamic hemorrhage measures 2.6 cm in diameter. Adjacent 1.1 cm additional hemorrhage. No midline shift. There is extension into the ventricular system. No hydrocephalus. Mild underlying atrophy and white matter chronic ischemic change Skull and face: Calvarium and visualized facial bones are intact, without suspicious lesions. Sinuses: Visualized sinuses and mastoids are clear. IMPRESSION: Left thalamic hemorrhage with intraventricular extension. No midline shift. No hydrocephalus. Note: Critical results were discussed with Dr. Fregoso at 08:22 AM [place] time on 08/27/23 Approved by: Austin Patel M.D. on 08/27/2023 at 8:23
--- NOTE | 2023-08-27 09:04 | DI.CT.S_ITS ---
PROCEDURE: CT ANGIO HEAD AND NECK INDICATIONS: R hemiplegia TECHNIQUE: After the administration of intravenous contrast, 1 mm thick sections acquired from the aortic arch through the [place] of [place]. MIP reformats of the arterial vasculature were utilized. For radiation dose reduction, the following was used: automated exposure control, adjustment of mA and/or kV according to patient size. COMPARISON: None. FINDINGS: Cerebral CT Angiogram: Internal carotid arteries: No acute findings. Intracranial ICA are patent with no significant stenosis. No occlusion. No aneurysm. Anterior cerebral arteries: Unremarkable. No significant stenosis. No occlusion. No aneurysm. Middle cerebral arteries: Unremarkable. No significant stenosis. No occlusion. No aneurysm. Posterior cerebral arteries: Unremarkable. No significant stenosis. No occlusion. No aneurysm. Basilar artery: Unremarkable. No significant stenosis. No occlusion. No aneurysm. Vertebral arteries: Unremarkable as visualized. Dural venous sinuses: Unremarkable given phase of enhancement. Other: Left thalamic hemorrhage with intraventricular extension, unchanged from the prior exam. No midline shift. Neck CT Angiogram: Internal carotid arteries: Bilateral calcified and noncalcified atherosclerotic plaque in the proximal internal carotid arteries without stenosis. Common carotid arteries: Unremarkable. No significant stenosis. No dissection or occlusion. External carotid arteries: Unremarkable. No occlusion. Vertebral arteries: Right vertebral dominance Other: None. Aortic Arch and Mediastinum: Partially visualized aortic arch unremarkable without evidence of aneurysm. Origins of the great vessels unremarkable. IMPRESSION: 1. Calcified and noncalcified atherosclerotic plaque in the proximal ICAs without stenosis. 2. No evidence of large vessel occlusion, aneurysm vascular malformation in the head neck. 3. Left thalamic hemorrhage without midline shift or change from the prior exam Approved by: Austin Patel M.D. on 08/27/2023 at 8:52
--- NOTE | 2023-08-27 09:24 | ED_ITS ---
HPI - Neuro Symptoms/Deficit General Chief Complaint: Neuro Symptoms/Deficit Stated Complaint: Code Stroke Time Seen by Provider: 08/27/23 09:04 Source: patient, EMS, RN notes reviewed and old records reviewed Mode of arrival: EMS Limitations: no limitations History of Present Illness HPI Narrative: 73-year-old male on Pradaxa for atrial fibrillation with cardiac ablation x2, history of hypertension prediabetic who presents with right hemiplegia difficulty with speech. states she woke up found him on the floor in the bathroom. Patient is not able to tell me if he fell or if he developed symptoms and then fell. Patient denies headache, no chest pain or shortness of breath with speech is quite garbled. He does help with commands. He denies any nausea or vomiting currently. He has a history of hypertension, AFib on Pradaxa. Has had prior cardiac ablations, cholecystectomy. Allergic to doxycycline and sulfa. No tobacco, no regular alcohol, no recreational drugs. Patient does live with his . Related Data Previous Rx's Medication Instructions Recorded ciprofloxacin HCl 500 mg tablet 500 mg PO BID #14 tabs 02/02/23 (Cipro) metronidazole 500 mg tablet 500 mg PO TID #21 tabs 02/02/23 Allergies Allergy/AdvReac Type Severity Reaction Status Date / Time doxycycline Allergy Dizziness Verified 03/16/23 10:16 Sulfa (Sulfonamide Allergy Rash Verified 03/16/23 10:16 Antibiotics) Review of Systems Review of Systems ROS Unobtainable: All systems reviewed & are unremarkable except as noted in HPI and below Patient History Social History Smoking Status: Never smoker Smoking Status: Never smoker alcohol intake frequency: holidays/special occasions only Substance Use Type: does not use Exam Narrative Exam Narrative: GEN: Patient appears in moderate distress. Patient is alert does try to answer questions seems to be appropriately but speech is very garbled. HEAD: No evidence of trauma, no raccoon/[place] sign. NECK: Nontender, painless range of motion, trachea midline EYES: PERRLA, EOMI ENT: External inspection normal, trachea is midline, TM's are normal no hemotypanum, Nares are clear, no septal hematoma, no dental or oral injury, airway is normal and with normal occlusion, No bony tenderness, patient does have facial droop, RESP: Chest is nontender and has symmetric movement, no ecchymosis, breath sounds are normal no crackles, wheezes or rales CVS: Heart sounds are normal, no murmur noted, No JVD. ABG/GI: Nontender, soft, normal bowel sounds, no distention, no organomegaly, pelvic rock is negative. NEURO: Oriented AOx3, neuro is grossly intact, sensation and motor is normal all 4 extremities moving, cranial nerves II through XII are intact, GCS is 15 PSYCH: Normal mood and affect SKIN: Intact, warm and dry, no crepitus and without decubitus BACK: No CVA tenderness, no vertebral tenderness, no step-off's, no crepitus EXT: Atraumatic, hips are nontender, no pedal edema, normal color and temperature, patient can not lift his right arm off the bed at all, he can hold his left arm for 10 seconds, can lift his left leg for 5 seconds, right leg falls down to gravity but he can come. Ataxia with right extremities upper and lower. Facial droop. Dysarthria and aphasia. Initial Vital Signs Initial Vital Signs: Vital Signs Pulse Rate 85 08/27/23 09:25 Respiratory Rate 17 08/27/23 09:25 Pulse Oximetry 96 08/27/23 09:25 Scores NIH Stroke Scale Level of Conciousness: Alert, keenly responsive Ask month/age: Answers both questions correctly. Open/close eyes, close hand: Performs both tasks correctly Best gaze horizontal: Normal Visual leon: No visual loss Facial palsy: Partial paralysis, total or near total paralysis of lower face Left arm drift: No drift for full 10 sec Right arm drift: No effort against gravity Left leg drift: No drift for full 5 sec Right leg drift: Drifts down, not to bed Limb ataxia: Present in two limbs Sensory on face/arms/legs: Normal, no sensory loss Best language: Severe aphasia, not much is understood, fragmented Dysarthria: Mild to mod,some slurring Extinction or inattention: No abnormality Total NIH Stroke scale score: 11 Course Orders Ordered: ED Orders 08/27/23 09:[address] angio head and neck Stat Urinalysis and Microscopic Stat Urine Drug Screen, Rapid Stat EKG-12 Lead Stat 08/27/23 09:25 Complete Blood Count AUTO DIFF Stat Comprehensive Metabolic Panel Stat Ethanol (ETOH) Stat PTT Partial Thromboplastin Evens Stat Prothrombin Time INR Stat Troponin & CK Cardiac Panel Stat Sodium Chloride (Normal Saline 0.9%) 1,000 mls @ 150 mls/hr IV CONT SABINA Nicardipine HCl 25 mg/ Sodium (Chloride) 250 mls @ 50 mls/hr IV TITRATE SABINA; Protocol Last Admin: 08/27/23 10:29 Dose: 5 mg/hr, 50 mls/hr Documented By: ANTHONY Discontinued Medications Phytonadione 10 mg/ Sodium (Chloride) 101 mls @ 202 mls/hr IV NOW ONE Stop: 08/27/23 09:48 Last Admin: 08/27/23 10:42 Dose: 202 mls/hr Documented By: ANTHONY Prothrombin Complex Concent ( Human) 2,000 unit/Miscellaneous 80 mls @ 826.56 mls/hr IV NOW ONE; Protocol Stop: 08/27/23 10:00 Last Admin: 08/27/23 10:32 Dose: 3 unit/kg/min, 826.56 mls/hr Documented By: ANTHONY Lorazepam (Lorazepam 2 Mg/Ml Inj) 0.5 mg IV NOW ONE Stop: 08/27/23 09:10 Last Admin: 08/27/23 10:40 Dose: 0.5 mg Documented By: ANTHONY Lorazepam (Lorazepam 2 Mg/Ml Inj) 0.5 mg IV NOW ONE Stop: 08/27/23 10:04 Last Admin: 08/27/23 10:05 Dose: 0.5 mg Documented By: RAISSA Ondansetron HCl (Ondansetron 4 Mg/2 Ml Inj) 4 mg IV NOW ONE Stop: 08/27/23 09:43 Vital Signs Vital signs: Vital Signs - 8 hr 08/27/23 09:25 08/27/23 09:29 08/27/23 09:30 Temperature 97.8 F Pulse Rate 85 86 86 Respiratory Rate 17 16 26 H Blood Pressure 150/71 H Pulse Oximetry 96 98 97 Oxygen Delivery Method Room Air 08/27/23 09:30 08/27/23 09:46 08/27/23 09:46 Temperature Pulse Rate 97 H Respiratory Rate 25 H Blood Pressure 150/71 H 201/99 H Pulse Oximetry 99 Oxygen Delivery Method 08/27/23 09:59 08/27/23 09:59 08/27/23 10:00 Temperature Pulse Rate 107 H 108 H Respiratory Rate 28 H 17 Blood Pressure 218/91 H Pulse Oximetry 96 97 Oxygen Delivery Method 08/27/23 10:04 08/27/23 10:04 08/27/23 10:13 Temperature Pulse Rate 114 H 109 H Respiratory Rate 30 H 27 H Blood Pressure 196/96 H Pulse Oximetry 97 98 Oxygen Delivery Method 08/27/23 10:13 08/27/23 10:15 08/27/23 10:15 Temperature Pulse Rate 124 H Respiratory Rate 33 H Blood Pressure 187/90 H 188/103 H Pulse Oximetry 98 Oxygen Delivery Method 08/27/23 10:22 08/27/23 10:22 08/27/23 10:30 Temperature Pulse Rate 104 H 106 H Respiratory Rate 23 29 H Blood Pressure 189/87 H Pulse Oximetry 97 96 Oxygen Delivery Method 08/27/23 10:32 08/27/23 10:32 Temperature Pulse Rate 109 H Respiratory Rate 26 H Blood Pressure 181/86 H Pulse Oximetry 97 Oxygen Delivery Method MDM - Neuro Symptoms/Deficit Lab Data 08/27/23 09:25 08/27/23 09:25 Labs: Lab Results 08/27/23 Range/Units 09:25 WBC 9.1 (4.5-11.0) X10^3/uL RBC 4.76 (4.5-5.9) X10^6/uL Hgb 13.8 (13.5-17.5) g/dL Hct 40.6 L (41-53) % MCV 85.3 (80-100) fL MCH 29.0 (26-34) PG MCHC 33.9 (30-36) % RDW 15.0 H (11.6-14.8) % Plt Count 187 (150-400) X10^3/uL Neut % (Auto) 48.3 L (50-75) % Lymph % (Auto) 41.0 H (25-40) % Weber % (Auto) 8.0 (3-14) % Eos % (Auto) 2.1 (2-4) % Baso % (Auto) 0.6 (0-2) % Neut # (Auto) 4400 (4799-2668) /uL Lymph # (Auto) 3700 (5302-7483) /uL Weber # (Auto) 700 (0-900) /uL Eos # (Auto) 200 (0-450) /uL Baso # (Auto) 100 (0-100) /uL PT 14.1 H (9.4-12.5) SECONDS INR 1.2 (0.9-1.3) APTT 38 H (25.1-36.5) SECONDS Sodium 140 (137-145) mmol/L Potassium 3.0 L (3.4-5.1) mmol/L Chloride 110 H (98-107) mmol/L Carbon Dioxide 20 L (22-32) mmol/L BUN 16 (9-20) mg/dL Creatinine 0.88 (0.66-1.25) mg/dL Estimated GFR > 60 (>60) mL/min BUN/Creatinine Ratio 18.2 (6-22) Glucose 193 H (80-110) mg/dL Calcium 8.4 (8.4-10.2) mg/dL Total Bilirubin 0.8 (0.2-1.3) mg/dL AST 30 (17-59) IU/L ALT 24 (<50) IU/L Alkaline Phosphatase 257 H (38-126) U/L Total Creatine Kinase 86 (55-170) U/L Troponin I < 0.012 (0.01-0.034) ng/mL Total Protein 6.6 (6.3-8.2) g/dL Albumin 3.7 (3.5-5.0) g/dL Globulin 2.9 (1.7-4.1) g/dL Albumin/Globulin Ratio 1.3 (1.0-2.8) Ethyl Alcohol < 10 ( - 10) mg/dL Point of Care Testing Glucose POC [address] scan - head: Radiologist's Impression: Brittanie Aguilar??73??M??1950 ? Allergy/Adv: doxycycline, Sulfa (Sulfonamide Antibiotics) (More??) Close Head/Neck CTA 08/27/[address] (Signed) Austin Patel - 08/27/23 Abdomen/Pelvis CT (Signed) Carlos Enrique Freire - 03/16/23 Abdomen/Pelvis CT (Signed) Lew Ontiveros - 02/02/23 Echocardiogram Ultrasound (Signed) Tj Roberts - 08/07/[address] [address] [address] Scan Report Signed Patient: Brittanie Aguilar MR#: [id number] : 1950 Acct:[id number] Age/Sex: 73 / M Date of Service: 08/27/23 Loc: ED Accession Number: [id number] Procedure: CT Stroke Ordering Provider: Kalpana Fregoso D.O. PROCEDURE: CT STROKE INDICATIONS: R hemiplegia TECHNIQUE: Noncontrast 4.5 mm thick angled axial sections acquired from the foramen magnum to the vertex, with coronal reformats. For radiation dose reduction, the following was used: automated exposure control, adjustment of mA and/or kV according to patient size. COMPARISON: None. FINDINGS: Image quality: Diagnostic. CSF spaces: Intraventricular hemorrhage without hydrocephalus Brain: Left thalamic hemorrhage measures 2.6 cm in diameter. Adjacent 1.1 cm additional hemorrhage. No midline shift. There is extension into the ventricular system. No hydrocephalus. Mild underlying atrophy and white matter chronic ischemic change Skull and face: Calvarium and visualized facial bones are intact, without suspicious lesions. Sinuses: Visualized sinuses and mastoids are clear. IMPRESSION: Left thalamic hemorrhage with intraventricular extension. No midline shift. No hydrocephalus. Note: Critical results were discussed with Dr. Fregoso at 08:22 AM [place] time on 08/27/23 Approved by: Austin Patel M.D. on 08/27/2023 at 8:23 CTA : Radiologist's Impression: Close Head/Neck CTA (Signed) Austin Patel - 08/27/[address] (Signed) Austin Patel - 08/27/23 Abdomen/Pelvis CT (Signed) Carlos Enrique Freire - 03/16/23 Abdomen/Pelvis CT (Signed) Lew Ontiveros - 02/02/23 Echocardiogram Ultrasound (Signed) Tj Roberts - 08/07/[address] [address] [address] Scan Report Signed Patient: Brittanie Aguilar MR#: [id number] : 1950 Acct:[id number] Age/Sex: 73 / M Date of Service: 08/27/23 Loc: ED Accession Number: [id number] Procedure: CT angio head and neck Ordering Provider: Kalpana Fregoso D.O. PROCEDURE: CT ANGIO HEAD AND NECK INDICATIONS: R hemiplegia TECHNIQUE: After the administration of intravenous contrast, 1 mm thick sections acquired from the aortic arch through the [place] of [place]. MIP reformats of the arterial vasculature were utilized. For radiation dose reduction, the following was used: automated exposure control, adjustment of mA and/or kV according to patient size. COMPARISON: None. FINDINGS: Cerebral CT Angiogram: Internal carotid arteries: No acute findings. Intracranial ICA are patent with no significant stenosis. No occlusion. No aneurysm. Anterior cerebral arteries: Unremarkable. No significant stenosis. No occlusion. No aneurysm. Middle cerebral arteries: Unremarkable. No significant stenosis. No occlusion. No aneurysm. Posterior cerebral arteries: Unremarkable. No significant stenosis. No occlusion. No aneurysm. Basilar artery: Unremarkable. No significant stenosis. No occlusion. No aneurysm. Vertebral arteries: Unremarkable as visualized. Dural venous sinuses: Unremarkable given phase of enhancement. Other: Left thalamic hemorrhage with intraventricular extension, unchanged from the prior exam. No midline shift. Neck CT Angiogram: Internal carotid arteries: Bilateral calcified and noncalcified atherosclerotic plaque in the proximal internal carotid arteries without stenosis. Common carotid arteries: Unremarkable. No significant stenosis. No dissection or occlusion. External carotid arteries: Unremarkable. No occlusion. Vertebral arteries: Right vertebral dominance Other: None. Aortic Arch and Mediastinum: Partially visualized aortic arch unremarkable without evidence of aneurysm. Origins of the great vessels unremarkable. IMPRESSION: 1. Calcified and noncalcified atherosclerotic plaque in the proximal ICAs without stenosis. 2. No evidence of large vessel occlusion, aneurysm vascular malformation in the head neck. 3. Left thalamic hemorrhage without midline shift or change from the prior exam Approved by: Austin Patel M.D. on 08/27/2023 at 8:52 MDM Narrative Medical decision making narrative: 73-year-old male last known normal last night, patient was found on the floor by his proximally 8 or 830 this morning saying I am sorry I am sorry and she contacted EMS she states he has not had worsening of his speech and had obvious right-sided weakness. Patient is anticoagulated on Pradaxa. He is found to have a head bleed in the left thalamic region with interventricular extension, no midline shift no hydrocephalus. CT angio is currently pending Spoke with patient and family at this time he is full code and if had any potential for intervention would be open to this. Head of bed at 30 degrees, We do not have the reversal agent for for DEXA but to have Kcentra was given vitamin K as well as Kcentra here in the department after INR was completed. 0950: Spoke with Raghavendra/genet about transfer for intraparenchymal/subarachnoid bleed. Spoke with neurology, Dr. Cabral who accepts for transfer. Plan for ED to ED. Dr. Cabral will speak with the ED attending. Also give patient 2000 units regardless of INR, patient has also been given vitamin K. goal blood pressure systolic less than 160 can use labetalol nicardipine. [facility] will activate airlift. Patient's blood pressure did increase significantly while trying to place Lynch catheter. Nicardipine gtt ordered as patient blood pressure trended upwards, was improving but not yet at goal with airlift took over care. CT angio shows calcified noncalcified atherosclerotic plaque proximal ICAs without stenosis no large vessel occlusion, aneurysm or vascular malformation in the head or neck, left thalamic hemorrhage without midline shift or change from prior exam. Labs show white count of 9.1 hemoglobin of 13.8 platelets are 187. INR is 1.2, chemistries are pending as well as troponin. Patient was continuing to protect airway well was not intubated. Stroke Core Measures Contraindications for TPA in CVA: Presentation c/w SA Bleed Critical Care Time Critical Care Time Critical Care Time: Yes Total Critical Care Time: 35 Attestation: The high probability of a clinically significant, sudden or life threatening deterioration of the neurologic system(s) required my full and direct attention, intervention and personal management. The aggregate critical care time was [--] minutes. This time is in addition to time spent performing reported procedures but includes the following: [x] Data Review and interpretation [x] Patient assessment and monitoring of vital signs [x] Documentation [x] Medication orders and management Discharge Plan Departure Patient Disposition: Xfer Acute [facility] Clinical Impression: Intracranial hemorrhage Prescriptions: No Action metronidazole 500 mg tablet 500 mg PO TID Qty: 21 0RF ciprofloxacin HCl [Cipro] 500 mg tablet 500 mg PO BID Qty: 14 0RF Referrals: Ely Chapin PA-C [Primary Care Provider] -
[2023-08-27 09:46] LABS: Add Manual Diff / Slide Review NO; Basophils Absolute Auto 100 /uL (0-100); Basophils Percent Auto 0.6 % (0-2); Eosinophils Absolute Auto 200 /uL (0-450); Eosinophils Percent Auto 2.1 % (2-4); Hematocrit 40.6 % (41-53); Hemoglobin 13.8 g/dL (13.5-17.5); Lymphocytes Absolute Auto 3700 /uL (1100-4500); Mean Corpuscular HGB Conc 33.9 % (30-36); Mean Corpuscular Volume 85.3 fL (80-100); Monocytes Absolute Auto 700 /uL (0-900); Neutrophils Absolute Auto 4400 /uL (1500-7000); Neutrophils Percent Auto 48.3 % (50-75); Platelet Count 187 X10^3/uL (150-400); Red Blood Cell Count 4.76 X10^6/uL (4.5-5.9); White Blood Cell Count 9.1 X10^3/uL (4.5-11.0)
--- NOTE | 2023-08-27 09:48 | PC.NURSE ---
[facility] contacted @[phone], face sheet and images faxed and pushed. Transfer center spoke with Dr. Fregoso.
[2023-08-27 10:00] LABS: INR 1.2 (0.9-1.3); Prothrombin Time 14.1 SECONDS (9.4-12.5)
[2023-08-27 10:02] LABS: PTT Partial Thromboplastin Tim 38 SECONDS (25.1-36.5)
[2023-08-27 10:05] LABS: Alanine Aminotransferase 24 IU/L (<50); Albumin 3.7 g/dL (3.5-5.0); Albumin Globulin Ratio 1.3 (1.0-2.8); Alkaline Phosphatase 257 U/L (38-126); Aspartate Aminotransferase 30 IU/L (17-59); BUN Creatinine Ratio 18.2 (6-22); Bilirubin Total 0.8 mg/dL (0.2-1.3); Blood Urea Nitrogen 16 mg/dL (9-20); Calcium 8.4 mg/dL (8.4-10.2); Carbon Dioxide 20 mmol/L (22-32); Chloride 110 mmol/L (98-107); Creatine Kinase 86 U/L (55-170); Estimated Glomerular Filt Rate > 60 mL/min (>60); Ethanol (ETOH) < 10 mg/dL; Globulin 2.9 g/dL (1.7-4.1); Glucose 193 mg/dL (80-110); HEMOLYSIS < 15 (0-50); Sodium 140 mmol/L (137-145); Total Protein 6.6 g/dL (6.3-8.2)
[2023-08-27] MEDS: LORazepam 2 MG/ML INJ 0.5 MG IV ×2 (10:05→10:40)
[2023-08-27 10:15] LABS: Troponin I < 0.012 ng/mL (0.01-0.034)
[2023-08-27] MEDS: NICARDIPINE 25 MG in SODIUM CHLORIDE 0.9% 240 ML 50 MG IV (10:29)
[2023-08-27] MEDS: PROTHROMBIN CPLX(PCC)4FACT 2,000 UNIT in ISOOSMOTIC VEHICLE 0 ML 826.56 UNIT IV (10:32)
[2023-08-27] MEDS: PHYTONADIONE (VIT K1) 10 MG in SODIUM CHLORIDE 0.9% 100 ML 202 MG IV (10:42)
--- NOTE | 2023-08-27 11:14 | PC.NURSE ---
Addendum entered by Geri Stearns R.N. 08/27/23 15:10: At time of departure nicardipine running at 5mg/hr @ 50 ml/hr and Vit-K running 10mg per 100 ml running at 202 ml/hr. Kcentra infused by time at departure. Addendum entered by Geri Stearns R.N. 08/27/23 15:07: At time of [facility] departure, pt had an 18g IV in L-wrist and a 20g IV in L-hand. Original Note: Pt arrives EMS 0836, code stroke, GLF @ 0830, 911 called [phone] by spouse. Pt went straight to CT, very restless, given ativan 0.5mg to assist with being still on CT table. CT Brain/CTA, pt appeared to have a bleed on CT scan, on eloquis per , the medic report stated he was on Predaxa. Per physician verbal order attempted hook cath, unsuccessful, pt on blood thinner, hematuria upon removal of initial catheter. Afterwards, states pt had TURP a few years ago, physician advised. Pt given an additional 0.5 ativan to assist with restlessness. Per physician verbal order attempted a coude hook for the second time with conveyor line battery charger, conveyor line battery charger could not get past the prostate. Pt placed in a brief but due to restlessness could not keep the brief on the patient. Patient pulled out his EMS 18g, LAC line. Second 18g IV started, immediately. Chux pad under pt, Airlift NW was landing, pt urinated in bed, asked the ED requirements manager to change pt's bedding and to wash bed mattress. RN advised that Airlift was on the ground and we would put pt in dry bedding upon [facility]. Pt's was continuously directing this RN throughout the entire patient care process, questioning physician orders, questioning medications, taking photos of the IV medications that were hanging on the pumps. RD had to reposition the COW several times in the room. forestry workers asked to relocate herself away from the hanging IV medications, was inspecting the IV bags of Kcentra and nicardipine.
== END 2023-08-27 11:05 | disposition short-term general hospital (02) ==
PROVIDERS: Emergency Provider Emergency Medicine; PCP Physician Assistant
DX: I62.9 Nontraumatic intracranial hemorrhage, unspecified (principal); R29.810 Facial weakness; R29.711 NIHSS score 11; Z79.01 Long term (current) use of anticoagulants; W19.XXXA Unspecified fall, initial encounter
CPT/HCPCS: 70450; 70496; 70498; 80053; 80320; 82550; 82962; 84484; 85025; 85610; 85730; 96365; 96366; 96368; 96375; 96376; 99284; 99291; J2060; J3430; J7168; Q9967

== ENCOUNTER 2024-09-05 13:45 | Outpatient (RCR) | payer MEDICARE, SELFPAY ==
--- NOTE | 2024-01-18 17:13 | ST.OP.ACL ---
Visit Care Team Role Provider Type Ely Chapin PA-C Attending Provider Advanced Cost Coordinator Family Provider Primary Care Provider Referring Provider Specialty: Medical Address: [address] [place] [address], [id number] Email: Adult Cognitive Linguistic Evaluation DEVELOPMENT ENG Adult Cognitive Linguistic Eval Start: 01/18/24 13:42 Freq: Status: Active Protocol: Document 01/18/24 13:43 SS (Rec: 01/18/24 14:19 SS [id number]) Adult Cognitive Linguistic Evaluation Session Time Visit Start Time 12:15 Visit Stop Time 13:07 Total Visit Minutes 52 Visit Information Visit Number Initial Evaluation Plan of Care Dates 01/18/24-04/19/24 Insurance Information [facility] Referral Referring Provider Dr. Ely Chapin Reason for Referral Aphasia and cognitive- communication concerns s/p CVA Setting Assessment Location Outpatient Care Visit Type Note Type Initial evaluation Next Note Type Next Note Type Treatment Note Patient Information Identification Type Name Patient History Brittanie Aguilar is a 73-year-old male who presents to this clinic for an evaluation and treatment of language and cognitive-communication concerns. Pt presented to the evaluation with his spouse, Melanie Aguilar (Liz). 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 He was at [facility] in the ICU unit for a month, and then admitted to rehabilitation at [facility] until discharge of November 20, 2023. He received home health speech therapy, which is now discontinued. Pt currently lives with his spouse who assists him with driving, medication management , household management, and finances following CVA. PMHx includes atrial fibrillation and hypertension. Pt?s spouse reports that pt initially presented with severe expressive aphasia, characterized primarily by jargon, which has since mostly resolved. Both pt and spouse noted residual word-finding difficulties during conversation and mildly imprecise speech when tired. Additionally, pt?s spouse noted decreased short-term memory, specifically when attempting to recall what happened earlier in the day, completing all steps during familiar routines (e.g., oral care), recalling safety needs during ambulation, and recalling names of familiar places and people. Pt reports his main goal for treatment is to improve his short-term memory, be able to converse with others, and ?get back to my normal self?. Education Level Bachelors of Electrical Engineering Occupation Status Retired Hearing Hearing Level Impaired Auditory History Mild hearing loss, though functional for speech. Vision Vision Status Impaired Comments Spouse reports double vision with distance Previous Therapy Previous Speech-Language Therapy Yes History of Therapy DEVELOPMENT ENG services at [facility] during inpatient rehabilitation and with [facility] targeting speech and language. Subjective Patient Report Pt arrived to the evaluation no time. He was accompanied by his spouse, Anel. Pt was engaged and motivated throughout. Informal Assessment Receptive Language Normal Yes Expressive Language Normal No: Mild word-finding difficulty Expressive Language Impairment(s) Confrontation naming,Divergent naming,Expression of complex thoughts/ideas Pragmatic Language Normal Yes Speech Normal Yes Cognition Normal No Cognitive Impairment(s) Attention,Short-term memory, Executive functioning,Problem solving,Thought organization, Safety awareness Formal Assessment Standardized Test/Screener Type Cognitive Linguistic Quick Test (CLQT) Administration Initiated Results The Cognitive Linguistic Quick Test (CLQT) was administered to obtain information regarding the patient?s cognitive abilities. The CLQT assesses five cognitive domains: attention, memory, executive functioning, language, and visuospatial skills. A domain and severity rating is calculated. Scores fall within a WNL and severe range describing a patient?s level of impairment. Additionally, a composite severity range is calculated. A score of 3.5-4.0 is WNL, 2.5 -3.4 is mild, 1.5-2.4 is moderate, and 1.0-1.4 is severe. The CLQT was completed on this date. The pt scored as follows: Personal Facts: 11/23 Symbol Cancelation: 02/27 Confrontation Namin/10 Clock Drawin/13 Story Retellin/10 Symbol Trails: 07/26 Generative Namin/9 Unable to provide domain and severity ratings or composite severity range as pt did not complete the full examination. Plan to complete full examination in following session. Pt demonstrated difficulty in the areas of word-finding, attention, and short-term recall. Findings/Results Language Function Mild-moderately impaired Cognitive Function Moderately impaired Findings Pt demonstrated moderate cognitive-communication impairment in the areas of attention, short-term memory, executive functioning, and word-finding. Pt is at an elevated risk of making critical errors with tasks such as medication management, time/schedule management, oracle financials developer, and completion of records and information manager , as well as everyday tasks that require adequate skills in the areas of attention and immediate/delayed memory. Word -finding difficulty in conversation has impacted his communication with his spouse, family, friends, and medical providers and has resulted in communication breakdowns and frustration. Skilled DEVELOPMENT ENG services with the goal of providing therapeutic education and training in the use of cognitive-communication compensatory strategies targeting attention and immediate and delayed memory for improved participation and independence with functional activities at current level of care are recommended. Additionally, recommend treatment targeting word- finding for improved communication with family, friends, and members of the medical team to prevent communication breakdowns and enhance communication effectiveness. Concomitant Factors Concomitant Factors Hemiplegia/hemiparesis,Hearing loss Prognosis Prognosis Good Based on Family support,Duration of symptoms/severity,Time since onset Plan of Care Speech-Language Treatment Yes Frequency Once a week for three months Patient/Caregiver Education Patient expressed understanding of evaluation, Patient expressed agreement with goals and treatment plans Short Term Goals 1. Patient will utilize compensatory word-finding strategies in 80% of opportunities given moderate verbal and visual cues to increase word-finding skills during simple conversational tasks. 2. Patient will explore external compensatory strategies through education and application, in order to select 1-2 that are a best fit for daily needs (ex: calendar and writing lists). 3. Patient will participate in internal memory strategy (ex: visualization and rehearsal) education and training, in order to select 1-2 that are best fit for daily needs. Penitentiary Goals 1. Patient will use word recall strategies independently in spontaneous conversation to minimize communication breakdowns, improve his ability to communicate effectively with others, and improve QoL. 2. Patient will increase memory skills using compensatory strategies and visual/auditory aids as trained in order increase safety during ADLs and promote independence.
--- NOTE | 2024-01-18 17:15 | ST.OPPOC ---
Physical, Occupational & Speech Therapy At [facility] Visit Care Team Role Provider Type Ely Chapin PA-C Attending Provider Advanced Jukebox Checker Family Provider Primary Care Provider Referring Provider Address: [address] [place] [address], [id number] Speech Pathology Plan of Care Plan of Care Dates 01/18/24-04/19/[address] Ely Chapin Patient History Brittanie Aguilar is a 73-year-old male who presents to this clinic for an evaluation and treatment of language and cognitive-communication concerns . Pt presented to the evaluation with his spouse, Melanie Aguilar (Liz). 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 He was at [facility] in the ICU unit for a month, and then admitted to rehabilitation at [facility] until discharge of November 20, 2023. He received home health speech therapy, which is now discontinued . Pt currently lives with his spouse who assists him with driving, medication management, household management, and finances following CVA . PMHx includes atrial fibrillation and hypertension. Pt?s spouse reports that pt initially presented with severe expressive aphasia, characterized primarily by jargon, which has since mostly resolved. Both pt and spouse noted residual word-finding difficulties during conversation and mildly imprecise speech when tired. Additionally, pt?s spouse noted decreased short-term memory, specifically when attempting to recall what happened earlier in the day, completing all steps during familiar routines (e.g., oral care), recalling safety needs during ambulation, and recalling names of familiar places and people. Pt reports his main goal for treatment is to improve his short-term memory, be able to converse with others, and ? get back to my normal self?. Short Term Goals 1. Patient will utilize compensatory word- finding strategies in 80% of opportunities given moderate verbal and visual cues to increase word-finding skills during simple conversational tasks. 2. Patient will explore external compensatory strategies through education and application, in order to select 1-2 that are a best fit for daily needs (ex: calendar and writing lists). 3. Patient will participate in internal memory strategy (ex: visualization and rehearsal) education and training, in order to select 1-2 that are best fit for daily needs. Relationship Mgr Goals 1. Patient will use word recall strategies independently in spontaneous conversation to minimize communication breakdowns, improve his ability to communicate effectively with others, and improve QoL. 2. Patient will increase memory skills using compensatory strategies and visual/auditory aids as trained in order increase safety during ADLs and promote independence. Comment: Electronically Signed by: LILIA Sotelo 01/18/24 [id number] If you are in agreement with this Plan of Care, please return a signed and dated copy. I have reviewed this Plan of Care and certify that the skilled therapy services above are required to meet the patient?s needs. Physician Signature Date Printed Name and Credentials Clinical Instructor Signature Printed Name and Credentials
--- NOTE | 2024-01-25 14:25 | ST.OPTN ---
Visit Care Team Role Provider Type Ely Chapin PA-C Attending Provider Advanced Food Counselor Family Provider Primary Care Provider Referring Provider Address: [address] [place] [address], [id number] STONECUTTER ASSISTANT Treatment Note STONECUTTER ASSISTANT Treatment Note Start: 01/18/24 13:42 Freq: Status: Active Protocol: Document 01/25/24 13:27 SS (Rec: 01/25/24 13:43 SS [id number]) Speech Pathology Treatment Note Session Time Visit Start Time 12:00 Visit Stop Time 12:50 Total Visit Minutes 50 Visit Information Visit Number 1 Plan of Care Dates 01/18/24-04/19/24 Setting Treatment Setting Outpatient Care Visit Type Note Type Treatment Note Next Note Type Next Note Type Treatment Note General Information Patient History Brittanie Aguialr is a 73-year-old male who presents to this clinic for an evaluation and treatment of language and cognitive-communication concerns. Pt presented to the evaluation with his spouse, Melanie (Arcelia Aguilar. 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 He was at [facility] in the ICU unit for a month, and then admitted to rehabilitation at [facility] until discharge of November 20, 2023. He received home health speech therapy, which is now discontinued. Pt currently lives with his spouse who assists him with driving, medication management , household management, and finances following CVA. PMHx includes atrial fibrillation and hypertension. Pt?s spouse reports that pt initially presented with severe expressive aphasia, characterized primarily by jargon, which has since mostly resolved. Both pt and spouse noted residual word-finding difficulties during conversation and mildly imprecise speech when tired. Additionally, pt?s spouse noted decreased short-term memory, specifically when attempting to recall what happened earlier in the day, completing all steps during familiar routines (e.g., oral care), recalling safety needs during ambulation, and recalling names of familiar places and people. Pt reports his main goal for treatment is to improve his short-term memory, be able to converse with others, and ?get back to my normal self?. Subjective Identification Type Name Observations/Patient Presentation Pt arrived to the session on time. He was accompanied by his , Anel. He was engaged and motivated throughout the session. Objective Short Term Goals 1. Patient will utilize compensatory word-finding strategies in 80% of opportunities given moderate verbal and visual cues to increase word-finding skills during simple conversational tasks. 2. Patient will explore external compensatory strategies through education and application, in order to select 1-2 that are a best fit for daily needs (ex: calendar and writing lists). 3. Patient will participate in internal memory strategy (ex: visualization and rehearsal) education and training, in order to select 1-2 that are best fit for daily needs. Cook Helper Goals 1. Patient will use word recall strategies independently in spontaneous conversation to minimize communication breakdowns, improve his ability to communicate effectively with others, and improve QoL. 2. Patient will increase memory skills using compensatory strategies and visual/auditory aids as trained in order increase safety during ADLs and promote independence. Treatment Activities Completed CLQT and initiated Semantic Feature Analysis to target word-finding. Assessment Patient Response to Treatment Good Rehab Potential Good Impairments Identified Cognitive communication Progress Towards Goals Good Progress Assessment of Overall Progress Improving Assessment of Improvement The CLQT was completed on this date as it was initiated on evaluation date. The pt scored as follows: Attention: 170 WNL Memory: 154 WNL Executive Functionin Mild Language: 26 Mild Visuospatial Skills: 81 WNL Clock Drawin WNL Composite Severity Rating = 3. 6 WNL Pt presents with overall moderate cognitive- communication impairment based on assessment via standardized testing and informal observation. He demonstrated mild deficits in areas of executive functioning and language on CLQT, though deficits become more severe during functional and dynamic everyday tasks, with pt demonstrating significant word -finding difficulty. Additionally, he and souse report difficulty with completing basic ADLs and IADLs given underlying short- term memory and executive functioning deficits. Semantic Feature Analysis (SFA ) implemented to target anomia and use of circumlocution for improved word retrieval. The patient was provided with a visual graphic organizer with six categories (category/group , use, action, properties, location, and association) and was asked to generate words across the six categories for personally-relevant, functional words. Patient accurately named 4/4 target words. He produced 10 words per target word, increasing to 15 words given min-mod semantic and phonemic verbal cueing. Provided graphic and HEP for use of SFA at home. Pt and spouse expressed understanding. Overall good progress with use of circumlocution as word-finding strategy. Plan to continue targeting use of word-finding strategies, external/internal memory strategies, and IADLs in next session. Reviewed with Patient Goals,Home Exercise Program
--- NOTE | 2024-02-01 17:29 | ST.OPTN ---
Visit Care Team Role Provider Type Ely Chapin PA-C Attending Provider Advanced Entrance Guard Family Provider Primary Care Provider Referring Provider Address: [address] [place] [address], [id number] URGENT CARE PHYSICIAN ASSISTANT Treatment Note URGENT CARE PHYSICIAN ASSISTANT Treatment Note Start: 01/18/24 13:42 Freq: Status: Active Protocol: Document 02/01/24 13:46 SS (Rec: 02/01/24 13:47 SS [id number]) Speech Pathology Treatment Note Session Time Visit Start Time 12:18 Visit Stop Time 13:03 Total Visit Minutes 45 Visit Information Visit Number 2 Plan of Care Dates 01/18/24-04/19/24 Insurance Information [facility] Setting Treatment Setting Outpatient Care Visit Type Note Type Treatment Note Next Note Type Next Note Type Treatment Note General Information Patient History Brittanie Aguilar is a 73-year-old male who presents to this clinic for an evaluation and treatment of language and cognitive-communication concerns. Pt presented to the evaluation with his spouse, Melanie Aguilar (Liz). 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 He was at [facility] in the ICU unit for a month, and then admitted to rehabilitation at [facility] until discharge of November 20, 2023. He received home health speech therapy, which is now discontinued. Pt currently lives with his spouse who assists him with driving, medication management , household management, and finances following CVA. PMHx includes atrial fibrillation and hypertension. Pt?s spouse reports that pt initially presented with severe expressive aphasia, characterized primarily by jargon, which has since mostly resolved. Both pt and spouse noted residual word-finding difficulties during conversation and mildly imprecise speech when tired. Additionally, pt?s spouse noted decreased short-term memory, specifically when attempting to recall what happened earlier in the day, completing all steps during familiar routines (e.g., oral care), recalling safety needs during ambulation, and recalling names of familiar places and people. Pt reports his main goal for treatment is to improve his short-term memory, be able to converse with others, and ?get back to my normal self?. Subjective Identification Type Name Observations/Patient Presentation Pt arrived to the session on time. He was accompanied by his caregiver, Olesya. He was engaged and motivated throughout the session. Objective Short Term Goals 1. Patient will utilize compensatory word-finding strategies in 80% of opportunities given moderate verbal and visual cues to increase word-finding skills during simple conversational tasks. 2. Patient will explore external compensatory strategies through education and application, in order to select 1-2 that are a best fit for daily needs (ex: calendar and writing lists). 3. Patient will participate in internal memory strategy (ex: visualization and rehearsal) education and training, in order to select 1-2 that are best fit for daily needs. Alf Goals 1. Patient will use word recall strategies independently in spontaneous conversation to minimize communication breakdowns, improve his ability to communicate effectively with others, and improve QoL. 2. Patient will increase memory skills using compensatory strategies and visual/auditory aids as trained in order increase safety during ADLs and promote independence. Treatment Activities Provided education re: compensatory strategies for word-finding and implemented strategies in structured activities. Additionally, initiated education re: external and internal memory strategies. Assessment Patient Response to Treatment Good Rehab Potential Good Impairments Identified Cognitive communication Progress Towards Goals Good Progress Assessment of Overall Progress Improving Assessment of Improvement Provided education re: word finding strategies, including slowing down, stating the general topic, saying the first letter, using gestures, describing the word, using a similar word, or coming back to it later in the conversation. Pt tasked with identifying a category given 5 items; pt then tasked with naming an additional x5 items belonging to the identified category. Pt performed as follows. Convergent Naming +5/ 5 (100%). Divergent Naming +9/ 15 (60%); additional +3 given semantic and phonemic cues. He became increasingly frustrated during this activity and benefited from cueing to slow down and take a deep breath. Semantic Feature Analysis (SFA ) implemented to target anomia and use of circumlocution for improved word retrieval. The patient was provided with a visual graphic organizer with six categories (category/group , use, action, properties, location, and association) and was asked to generate words across the six categories for personally-relevant, functional words. Patient accurately named 3/3 target words. He produced an average of 12 content words per target word, increasing to 20+ words given min-mod semantic and phonemic verbal cueing. Provided HEP for use of SFA and generative/divergent naming at home. Introduced external compensatory strategies for memory, including use of calendar and daily memory log. Pt somewhat receptive to use of daily memory log given rationale of targeting short term memory (what did we just do) as well as prospective memory (what do we have to do for tomorrow) and clinician modeling. Will continue to provide education and implement use of additional memory strategies in next session. Overall, ongoing good progress with use of circumlocution as word-finding strategies. Plan to continue targeting use of word-finding strategies, external/internal memory strategies, and IADLs in next session given pt progress and report. Reviewed with Patient Goals,Home Exercise Program Patient/Caregiver Understanding Good
--- NOTE | 2024-02-08 17:03 | ST.OPTN ---
Visit Care Team Role Provider Type Ely Chapin PA-C Attending Provider Advanced Strategic Manager Family Provider Primary Care Provider Referring Provider Address: [address] [place] [address], [id number] PUT IN BEAT ADJUSTER Treatment Note PUT IN BEAT ADJUSTER Treatment Note Start: 01/18/24 13:42 Freq: Status: Active Protocol: Document 02/08/24 16:53 SS (Rec: 02/08/24 17:02 SS [id number]) Speech Pathology Treatment Note Session Time Visit Start Time 12:17 Visit Stop Time 13:00 Total Visit Minutes 43 Visit Information Visit Number 3 Plan of Care Dates 01/18/24-04/19/24 Insurance Information [facility] Setting Treatment Setting Outpatient Care Visit Type Note Type Treatment Note Next Note Type Next Note Type Treatment Note General Information Patient History Brittanie Aguilar is a 73-year-old male who presents to this clinic for an evaluation and treatment of language and cognitive-communication concerns. Pt presented to the evaluation with his spouse, Melanie Aguilar (Liz). 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 He was at [facility] in the ICU unit for a month, and then admitted to rehabilitation at [facility] until discharge of November 20, 2023. He received home health speech therapy, which is now discontinued. Pt currently lives with his spouse who assists him with driving, medication management , household management, and finances following CVA. PMHx includes atrial fibrillation and hypertension. Pt?s spouse reports that pt initially presented with severe expressive aphasia, characterized primarily by jargon, which has since mostly resolved. Both pt and spouse noted residual word-finding difficulties during conversation and mildly imprecise speech when tired. Additionally, pt?s spouse noted decreased short-term memory, specifically when attempting to recall what happened earlier in the day, completing all steps during familiar routines (e.g., oral care), recalling safety needs during ambulation, and recalling names of familiar places and people. Pt reports his main goal for treatment is to improve his short-term memory, be able to converse with others, and ?get back to my normal self?. Subjective Identification Type Name Observations/Patient Presentation Pt arrived to the session on time. He was accompanied by his caregiver and his spouse. He was engaged and motivated throughout the session. Objective Short Term Goals 1. Patient will utilize compensatory word-finding strategies in 80% of opportunities given moderate verbal and visual cues to increase word-finding skills during simple conversational tasks. 2. Patient will explore external compensatory strategies through education and application, in order to select 1-2 that are a best fit for daily needs (ex: calendar and writing lists). 3. Patient will participate in internal memory strategy (ex: visualization and rehearsal) education and training, in order to select 1-2 that are best fit for daily needs. Mineral Engineer Goals 1. Patient will use word recall strategies independently in spontaneous conversation to minimize communication breakdowns, improve his ability to communicate effectively with others, and improve QoL. 2. Patient will increase memory skills using compensatory strategies and visual/auditory aids as trained in order increase safety during ADLs and promote independence. Treatment Activities Implemented compensatory strategies for word-finding and external memory strategies during strucutred and functional activities. Assessment Patient Response to Treatment Good Rehab Potential Good Impairments Identified Cognitive communication Progress Towards Goals Good Progress Assessment of Overall Progress Improving Assessment of Improvement Reviewed education re: word finding strategies. Pt reported he has been describing the word and using similar words during conversations with his spouse, which has been effective at times. Semantic Feature Analysis (SFA) implemented to target anomia and use of circumlocution for improved word retrieval. The patient was provided with a visual graphic organizer with six categories (category/group, use, action, properties, location, and association) and was asked to generate words across the six categories for personally-relevant, functional words. Patient accurately named 5/5 target words. He produced an average of 12 content words per target word, increasing to an average of 26 words given min- mod semantic and phonemic verbal cueing. Provided HEP for use of SFA and generative/ divergent naming at home. Pt expressed hs spouse has been helping him with filling daily memory with the goal of targeting short term memory ( what did we just do) as well as prospective memory (what do we have to do for tomorrow). He expressed that he has difficulty recalling what he had done the previous day or earlier in the week. Given filled out entry for the previous day, provided modeling re: use of visualization, association, and repetition as internal memory strategies. Immediately after review of entry, pt was able to recall 6/6 pieces of information. He was able to repeat information out loud and utilize visual imagery given prompting. Given 20 delay, he was able to recall 5 /6 pieces of information while demonstrating good use of internal strategies. Overall, good progress with use of circumlocution and description as word-finding strategies as well as memory log to enhance working and short-term recall. Plan to continue targeting use of word -finding strategies, external/ internal memory strategies, and IADLs in next session given pt progress and report. Reviewed with Patient Goals,Home Exercise Program Patient/Caregiver Understanding Good Plan Amount of Therapy Recommended 3 Months Frequency of Treatment Once a Week Length of Session 30 Minutes Therapeutic Contents Cognitive-Linguistic Training, Home Exercise Program Provided Patient/Caregiver Instruction Home Exercise Program, Questions/Concerns Therapy Recommendations Continue with Current Program
--- NOTE | 2024-02-15 17:34 | ST.OPTN ---
Visit Care Team Role Provider Type Ely Chapin PA-C Attending Provider Advanced Communications Consultant Family Provider Primary Care Provider Referring Provider Address: [address] [place] [address], [id number] MATHEMATICAL TECHNICIAN Treatment Note MATHEMATICAL TECHNICIAN Treatment Note Start: 01/18/24 13:42 Freq: Status: Active Protocol: Document 02/15/24 17:24 SS (Rec: 02/15/24 17:33 SS [id number]) Speech Pathology Treatment Note Session Time Visit Start Time 12:18 Visit Stop Time 13:54 Total Visit Minutes 36 Visit Information Visit Number 4 Plan of Care Dates 01/18/24-04/19/24 Insurance Information [facility] Setting Treatment Setting Outpatient Care Visit Type Note Type Treatment Note Next Note Type Next Note Type Treatment Note General Information Patient History Brittanie Aguilar is a 73-year-old male who presents to this clinic for an evaluation and treatment of language and cognitive-communication concerns. Pt presented to the evaluation with his spouse, Melanie Aguilar (Liz). 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 He was at [facility] in the ICU unit for a month, and then admitted to rehabilitation at [facility] until discharge of November 20, 2023. He received home health speech therapy, which is now discontinued. Pt currently lives with his spouse who assists him with driving, medication management , household management, and finances following CVA. PMHx includes atrial fibrillation and hypertension. Pt?s spouse reports that pt initially presented with severe expressive aphasia, characterized primarily by jargon, which has since mostly resolved. Both pt and spouse noted residual word-finding difficulties during conversation and mildly imprecise speech when tired. Additionally, pt?s spouse noted decreased short-term memory, specifically when attempting to recall what happened earlier in the day, completing all steps during familiar routines (e.g., oral care), recalling safety needs during ambulation, and recalling names of familiar places and people. Pt reports his main goal for treatment is to improve his short-term memory, be able to converse with others, and ?get back to my normal self?. Subjective Identification Type Name Observations/Patient Presentation Pt arrived to the session on time. He was accompanied by his spouse. He was engaged and motivated throughout the session. Objective Short Term Goals 1. Patient will utilize compensatory word-finding strategies in 80% of opportunities given moderate verbal and visual cues to increase word-finding skills during simple conversational tasks. 2. Patient will explore external compensatory strategies through education and application, in order to select 1-2 that are a best fit for daily needs (ex: calendar and writing lists). 3. Patient will participate in internal memory strategy (ex: visualization and rehearsal) education and training, in order to select 1-2 that are best fit for daily needs. Corporate Technical Recruiter Goals 1. Patient will use word recall strategies independently in spontaneous conversation to minimize communication breakdowns, improve his ability to communicate effectively with others, and improve QoL. 2. Patient will increase memory skills using compensatory strategies and visual/auditory aids as trained in order increase safety during ADLs and promote independence. Treatment Activities Continued to implement compensatory strategies for word-finding and external memory strategies during structured and functional activities. Assessment Patient Response to Treatment Good Rehab Potential Good Impairments Identified Cognitive communication Progress Towards Goals Good Progress Assessment of Overall Progress Improving Assessment of Improvement Pt reported he has been utilizing finding strategies during conversations with spouse and caregiver, though occasionally gets frustrated when he notices hesitations in his speech. Semantic Feature Analysis (SFA) implemented to target anomia and use of circumlocution for improved word retrieval. Pt was provided with a visual graphic organizer with six categories (category/group, use, action, properties, location, and association) and was asked to generate words across the six categories for personally- relevant, functional words. He accurately named 4/5 target words. He produced an average of 18 content words per target word, increasing to an average of 25+ words given min semantic and phonemic verbal cueing. Additionally, he benefited from min cueing to utilize compensatory strategies in conversation and reference handout of strategies as he had difficulty identifying strategies to utilize independently. Pt expressed he continues to review memory book as an external compensatory aid in order to increase his short term memory of daily events. He demonstrated good recall of this week?s events while referencing memory book and was able to recall activities he completed today with verbal phonemic and semantic cueing from both MATHEMATICAL TECHNICIAN and spouse. Overall, pt continues to make good progress with use of circumlocution and other word- finding strategies as well as memory book as an external memory aid. Reviewed with Patient Goals,Home Exercise Program Patient/Caregiver Understanding Good Plan Amount of Therapy Recommended 3 Months Frequency of Treatment Once a Week Length of Session 30 Minutes Therapeutic Contents Cognitive-Linguistic Training, Home Exercise Program Provided Patient/Caregiver Instruction Home Exercise Program, Questions/Concerns Therapy Recommendations Continue with Current Program
--- NOTE | 2024-02-22 14:54 | ST.OPTN ---
Visit Care Team Role Provider Type Ely Chapin PA-C Attending Provider Advanced Senior Human Resources Representative Family Provider Primary Care Provider Referring Provider Address: [address] [place] [address], [id number] ETCHED CIRCUIT PROCESSOR Treatment Note ETCHED CIRCUIT PROCESSOR Treatment Note Start: 01/18/24 13:42 Freq: Status: Active Protocol: Document 02/22/24 14:43 SS (Rec: 02/22/24 14:54 SS [id number]) Speech Pathology Treatment Note Session Time Visit Start Time 12:15 Visit Stop Time 12:54 Total Visit Minutes 39 Visit Information Visit Number 5 Plan of Care Dates 01/18/24-04/19/24 Insurance Information [facility] Setting Treatment Setting Outpatient Care Visit Type Note Type Treatment Note Next Note Type Next Note Type Treatment Note General Information Patient History Brittanie Aguilar is a 73-year-old male who presents to this clinic for an evaluation and treatment of language and cognitive-communication concerns. Pt presented to the evaluation with his spouse, Melanie Aguilar (Liz). 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 He was at [facility] in the ICU unit for a month, and then admitted to rehabilitation at [facility] until discharge of November 20, 2023. He received home health speech therapy, which is now discontinued. Pt currently lives with his spouse who assists him with driving, medication management , household management, and finances following CVA. PMHx includes atrial fibrillation and hypertension. Pt?s spouse reports that pt initially presented with severe expressive aphasia, characterized primarily by jargon, which has since mostly resolved. Both pt and spouse noted residual word-finding difficulties during conversation and mildly imprecise speech when tired. Additionally, pt?s spouse noted decreased short-term memory, specifically when attempting to recall what happened earlier in the day, completing all steps during familiar routines (e.g., oral care), recalling safety needs during ambulation, and recalling names of familiar places and people. Pt reports his main goal for treatment is to improve his short-term memory, be able to converse with others, and ?get back to my normal self?. Subjective Identification Type Name Observations/Patient Presentation Pt arrived to the session on time. He was accompanied by his caregiver who did not accompany him to the session. He was engaged and motivated throughout the session. Objective Short Term Goals 1. Patient will utilize compensatory word-finding strategies in 80% of opportunities given moderate verbal and visual cues to increase word-finding skills during simple conversational tasks. 2. Patient will explore external compensatory strategies through education and application, in order to select 1-2 that are a best fit for daily needs (ex: calendar and writing lists). 3. Patient will participate in internal memory strategy (ex: visualization and rehearsal) education and training, in order to select 1-2 that are best fit for daily needs. Group Home Goals 1. Patient will use word recall strategies independently in spontaneous conversation to minimize communication breakdowns, improve his ability to communicate effectively with others, and improve QoL. 2. Patient will increase memory skills using compensatory strategies and visual/auditory aids as trained in order increase safety during ADLs and promote independence. Treatment Activities Continued to implement compensatory strategies for word-finding and external memory strategies during structured and functional activities. Assessment Patient Response to Treatment Good Rehab Potential Good Impairments Identified Cognitive communication Progress Towards Goals Good Progress Assessment of Overall Progress Improving Assessment of Improvement Semantic Feature Analysis (SFA ) implemented to target anomia and use of circumlocution for improved word retrieval. Pt was provided with a visual graphic organizer with six categories (category/group, use, action, properties, location, and association) and was asked to generate words across the six categories for personally-relevant, functional words. He accurately named all target words. He produced an average of 15 content words per target word, increasing to an average of 22+ words given min semantic and phonemic verbal cueing. He continues to benefit benefited from cueing to utilize compensatory strategies in conversation when he got visibly frustrated during instances of anomia but did not attempt to implement strategies independently. Pt reported increased difficulty with short-term memory this week. Reviewed use of calendar and memory daily log as external compensatory strategies for memory which his spouse assists with given fine motor limitations. Given cuing to reference calendar and daily memory log, he was able to identify time/date of upcoming events and daily events over the past week with 100% accuracy. Given 10-minute delay, he was able to recall daily events that occurred over the past week without approximately 80% accuracy. Recommended pt reference calendar and daily memory log consistently throughout the day. Pt agreeable to this recommendation. Plan to continue targeting use of word -finding strategies in conversation as well as use of compensatory strategies for attention/memory during IADLs in next session. Reviewed with Patient Goals,Home Exercise Program Patient/Caregiver Understanding Good Plan Amount of Therapy Recommended 3 Months Frequency of Treatment Once a Week Length of Session 30 Minutes Therapeutic Contents Cognitive-Linguistic Training, Home Exercise Program Provided Patient/Caregiver Instruction Home Exercise Program, Questions/Concerns Therapy Recommendations Continue with Current Program
--- NOTE | 2024-02-29 14:51 | ST.OPTN ---
Visit Care Team Role Provider Type Ely Chapin PA-C Attending Provider Advanced Cryptologic Technician Technical Family Provider Primary Care Provider Referring Provider Address: [address] [place] [address], [id number] RADIOLOGY TECH Treatment Note RADIOLOGY TECH Treatment Note Start: 01/18/24 13:42 Freq: Status: Active Protocol: Document 02/29/24 14:31 SS (Rec: 02/29/24 14:50 SS [id number]) Speech Pathology Treatment Note Session Time Visit Start Time 12:20 Visit Stop Time 13:00 Total Visit Minutes 40 Visit Information Visit Number 6 Plan of Care Dates 01/18/24-04/19/24 Insurance Information [facility] Setting Treatment Setting Outpatient Care Visit Type Note Type Treatment Note Next Note Type Next Note Type Treatment Note General Information Patient History Brittanie Aguilar is a 73-year-old male who presents to this clinic for an evaluation and treatment of language and cognitive-communication concerns. Pt presented to the evaluation with his spouse, Melanie Aguilar (Liz). 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 He was at [facility] in the ICU unit for a month, and then admitted to rehabilitation at [facility] until discharge of November 20, 2023. He received home health speech therapy, which is now discontinued. Pt currently lives with his spouse who assists him with driving, medication management , household management, and finances following CVA. PMHx includes atrial fibrillation and hypertension. Pt?s spouse reports that pt initially presented with severe expressive aphasia, characterized primarily by jargon, which has since mostly resolved. Both pt and spouse noted residual word-finding difficulties during conversation and mildly imprecise speech when tired. Additionally, pt?s spouse noted decreased short-term memory, specifically when attempting to recall what happened earlier in the day, completing all steps during familiar routines (e.g., oral care), recalling safety needs during ambulation, and recalling names of familiar places and people. Pt reports his main goal for treatment is to improve his short-term memory, be able to converse with others, and ?get back to my normal self?. Subjective Identification Type Name Observations/Patient Presentation Pt arrived to the session on time. He was accompanied by his spouse who accompanied him to the session. He was engaged and motivated throughout the session. Objective Short Term Goals 1. Patient will utilize compensatory word-finding strategies in 80% of opportunities given moderate verbal and visual cues to increase word-finding skills during simple conversational tasks. 2. Patient will explore external compensatory strategies through education and application, in order to select 1-2 that are a best fit for daily needs (ex: calendar and writing lists). 3. Patient will participate in internal memory strategy (ex: visualization and rehearsal) education and training, in order to select 1-2 that are best fit for daily needs. Sales Floor Associate Goals 1. Patient will use word recall strategies independently in spontaneous conversation to minimize communication breakdowns, improve his ability to communicate effectively with others, and improve QoL. 2. Patient will increase memory skills using compensatory strategies and visual/auditory aids as trained in order increase safety during ADLs and promote independence. Treatment Activities Continued to implement compensatory strategies for word-finding during structured activities (description of target nouns, compare/contrast ) and in conversation. Utilized graded cueing to facilitate word retrieval. Provided leon activities and reviewed use of compensatory strategies during conversation with spouse, caregiver, etc. Assessment Patient Response to Treatment Good Rehab Potential Good Impairments Identified Cognitive communication Progress Towards Goals Good Progress Assessment of Overall Progress Improving Assessment of Improvement Pt expressed he has been completing structured SFA tasks art home with help from spouse and caregiver, though continues to have difficulty with carryover of circumlocution to conversation . Additionally, he reported he has been utilizing external compensatory strategies for memory as previously trained, though benefits from intermittent cueing from spouse to check daily log and calendar as he forgets to do so independently. Implemented structured circumlocution activity in which pt was tasked with naming and describing target object to target anomia and use of circumlocution for improved word retrieval. Pt was able to produce a concise and salient description in 60% of opportunities, increasing to 100% given min-mod verbal semantic and phonemic cueing. He was able to supplement his verbal responses with gestures effectively. Additionally, implemented compare/contrast activity in which pt was provided with two words (e.g., high school vs college) and asked to provide three similarities and three differences in order to target use of compensatory strategies for word-finding in a higher level complexity task. Pt initially required mod-max verbal cues to provide similarities and differences. He demonstrated increasing understanding of task as it progressed, and presented with increasing fluency, reduced hesitations, and increased ability to produce relevant and functional descriptions. Continued to provide verbal cueing to utilize compensatory word-finding strategies as well as modeling of use of strategies during instances of anomia in conversation. Overall, pt demonstrated increased ability to utilize compensatory strategies in unstructured context, though communication effectiveness continues to be impacted by occasional frustration and pt requesting to return to word later in session. Plan to implement use of structured tasks targeting working memory and sustained/alternating attention in next session in addition to trained external strategies for memory. Reviewed with Patient Goals,Home Exercise Program Patient/Caregiver Understanding Good Plan Amount of Therapy Recommended 3 Months Frequency of Treatment Once a Week Length of Session 30 Minutes Therapeutic Contents Cognitive-Linguistic Training, Home Exercise Program Provided Patient/Caregiver Instruction Home Exercise Program, Questions/Concerns Therapy Recommendations Continue with Current Program
--- NOTE | 2024-03-07 16:08 | ST.OPTN ---
Visit Care Team Role Provider Type Ely Chapin PA-C Attending Provider Advanced Measurement And Sensing Technician Family Provider Primary Care Provider Referring Provider Address: [address] [place] [address], [id number] COMBINATION WINDOW INSTALLER Treatment Note COMBINATION WINDOW INSTALLER Treatment Note Start: 01/18/24 13:42 Freq: Status: Active Protocol: Document 03/07/24 13:37 SS (Rec: 03/07/24 13:46 SS [id number]) Speech Pathology Treatment Note Session Time Visit Start Time 12:15 Visit Stop Time 13:00 Total Visit Minutes 45 Visit Information Visit Number 7 Plan of Care Dates 01/18/24-04/19/24 Insurance Information [facility] Setting Treatment Setting Outpatient Care Visit Type Note Type Treatment Note Next Note Type Next Note Type Treatment Note General Information Patient History Brittanie Aguilar is a 73-year-old male who presents to this clinic for an evaluation and treatment of language and cognitive-communication concerns. Pt presented to the evaluation with his spouse, Melanie (Arcelia Aguilar. 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 He was at [facility] in the ICU unit for a month, and then admitted to rehabilitation at [facility] until discharge of November 20, 2023. He received home health speech therapy, which is now discontinued. Pt currently lives with his spouse who assists him with driving, medication management , household management, and finances following CVA. PMHx includes atrial fibrillation and hypertension. Pt?s spouse reports that pt initially presented with severe expressive aphasia, characterized primarily by jargon, which has since mostly resolved. Both pt and spouse noted residual word-finding difficulties during conversation and mildly imprecise speech when tired. Additionally, pt?s spouse noted decreased short-term memory, specifically when attempting to recall what happened earlier in the day, completing all steps during familiar routines (e.g., oral care), recalling safety needs during ambulation, and recalling names of familiar places and people. Pt reports his main goal for treatment is to improve his short-term memory, be able to converse with others, and ?get back to my normal self?. Subjective Identification Type Name Observations/Patient Presentation Pt arrived to the session on time. He was accompanied by his , Anel, who accompanied him to the session. He was engaged and motivated throughout the session. Objective Short Term Goals 1. Patient will utilize compensatory word-finding strategies in 80% of opportunities given moderate verbal and visual cues to increase word-finding skills during simple conversational tasks. 2. Patient will explore external compensatory strategies through education and application, in order to select 1-2 that are a best fit for daily needs (ex: calendar and writing lists). 3. Patient will participate in internal memory strategy (ex: visualization and rehearsal) education and training, in order to select 1-2 that are best fit for daily needs. [facility] Goals 1. Patient will use word recall strategies independently in spontaneous conversation to minimize communication breakdowns, improve his ability to communicate effectively with others, and improve QoL. 2. Patient will increase memory skills using compensatory strategies and visual/auditory aids as trained in order increase safety during ADLs and promote independence. Treatment Activities Continued to implement compensatory strategies for word-finding during structured divergent naming task and in conversation. Utilized graded cueing to facilitate word retrieval. Reviewed compensatory strategies for memory previously introduced. Provided home activities for carryover. Assessment Patient Response to Treatment Good Rehab Potential Good Impairments Identified Expressive language,Cognitive communication Progress Towards Goals Good Progress Assessment of Overall Progress Improving Assessment of Improvement Pt brought completed home exercises including SFA tasks and similarities/differences activity for word retrieval. He reported he was able to utilize trained strategies during structured tasks. Pt?s wfe expressed that he continues to get frustrated during word-finding instances though is able to implement strategies more spontaneously than he has before in order to resolve communication breakdowns. He continued to utilize calendar and daily memory log which assists him with filling given his current fine motor function. Given initial prompt to refer to calendar and log, he was able to identify events that occurred this week as well as upcoming events this month with about 75% accuracy. Implemented structured divergent activity in which pt was tasked with naming five items in a category to target use of circumlocution and other word-finding strategies for improved word retrieval. Utilized strategies written on whiteboard as visual aid and intermittently cued pt to refer to board during task. Pt was able to name an average of 2/5 items, increasing to 5/ 5 given min-mod cueing, including cueing to verbalize semantic features in order to describe item (e.g., ?what does it do??, ?what does it look like??), first letter/ sound, and semantic cueing. He was able to supplement his verbal responses with gestures effectively. Although pt demonstrated ongoing hesitations and some frustration during tasks, he demonstrated increased ability to utilize word-finding strategies with increased consistency given verbal and visual cueing. Divergent naming tasks provided for home with cueing hierarchy explained to . Additionally, continue recommending pt utilize word- finding strategies in conversation in order to make it a habitual practice. Plan to continue implementing trained word-finding strategies, trained external strategies for memory, and introduce new external memory strategies given pt progress and report in next session. Reviewed with Patient Progress Being Made,Home Exercise Program Patient/Caregiver Understanding Good Plan Amount of Therapy Recommended 3 Months Frequency of Treatment Once a Week Length of Session 30 Minutes Therapeutic Contents Cognitive-Linguistic Training, Home Exercise Program Provided Patient/Caregiver Instruction Home Exercise Program, Questions/Concerns Therapy Recommendations Continue with Current Program
--- NOTE | 2024-03-21 17:13 | ST.OPTN ---
Visit Care Team Role Provider Type Ely Chapin PA-C Attending Provider Advanced Cell Changer Family Provider Primary Care Provider Referring Provider Address: [address] [place] [address], [id number] HOME VISITS NURSE Treatment Note HOME VISITS NURSE Treatment Note Start: 01/18/24 13:42 Freq: Status: Active Protocol: Document 03/21/24 17:00 SS (Rec: 03/21/24 17:13 SS [id number]) Speech Pathology Treatment Note Session Time Visit Start Time 12:15 Visit Stop Time 12:55 Total Visit Minutes 40 Visit Information Visit Number 8 Plan of Care Dates 01/18/24-04/19/24 Insurance Information [facility] Setting Treatment Setting Outpatient Care Visit Type Note Type Treatment Note Next Note Type Next Note Type Treatment Note General Information Patient History Brittanie Aguilar is a 73-year-old male who presents to this clinic for an evaluation and treatment of language and cognitive-communication concerns. Pt presented to the evaluation with his spouse, Melanie Aguilar (Liz). 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 He was at [facility] in the ICU unit for a month, and then admitted to rehabilitation at [facility] until discharge of November 20, 2023. He received home health speech therapy, which is now discontinued. Pt currently lives with his spouse who assists him with driving, medication management , household management, and finances following CVA. PMHx includes atrial fibrillation and hypertension. Pt?s spouse reports that pt initially presented with severe expressive aphasia, characterized primarily by jargon, which has since mostly resolved. Both pt and spouse noted residual word-finding difficulties during conversation and mildly imprecise speech when tired. Additionally, pt?s spouse noted decreased short-term memory, specifically when attempting to recall what happened earlier in the day, completing all steps during familiar routines (e.g., oral care), recalling safety needs during ambulation, and recalling names of familiar places and people. Pt reports his main goal for treatment is to improve his short-term memory, be able to converse with others, and ?get back to my normal self?. Subjective Identification Type Name Observations/Patient Presentation Pt arrived to the session on time. He was accompanied by his caregiver who did not accompany him to the session. He was engaged and motivated throughout the session. Objective Short Term Goals 1. Patient will utilize compensatory word-finding strategies in 80% of opportunities given moderate verbal and visual cues to increase word-finding skills during simple conversational tasks. 2. Patient will explore external compensatory strategies through education and application, in order to select 1-2 that are a best fit for daily needs (ex: calendar and writing lists). 3. Patient will participate in internal memory strategy (ex: visualization and rehearsal) education and training, in order to select 1-2 that are best fit for daily needs. [facility] Goals 1. Patient will use word recall strategies independently in spontaneous conversation to minimize communication breakdowns, improve his ability to communicate effectively with others, and improve QoL. 2. Patient will increase memory skills using compensatory strategies and visual/auditory aids as trained in order increase safety during ADLs and promote independence. Treatment Activities Continued to implement compensatory strategies for word-finding during structured divergent naming task and in unstructured conversation. Utilized graded cueing to facilitate word retrieval and use of visual aid to improve recall of strategies. Provided home activities for carryover . Assessment Patient Response to Treatment Good Rehab Potential Good Impairments Identified Expressive language,Cognitive communication Progress Towards Goals Good Progress Assessment of Overall Progress Improving Assessment of Improvement Brittanie reported he has been able to utilize trained strategies for word-finding during conversations with reduced need for cueing from his . Additionally, he reported he has been utilizing calendar and daily log as memory aids and is more concerned about his ability to have conversations than his memory. Implemented structured divergent activity as pt reported difficulty with home practice with this task. He was tasked with naming five items in a category to target use of circumlocution and other word-finding strategies for improved word retrieval. Utilized visual aid of written strategies to help with recall. Pt was able to name an average of 3/5 items, increasing to 5/5 over 6 trials given mod cueing, decreasing to min to no cueing as activity progressed. Pt benefited most from phonemic/ semantic cueing, cueing to use circumlocution, and first sound/letter. During unstructured conversation about personally meaningful topics to pt, he demonstrated occasional hesitations and increased frustration when he was unable to immediately retrieve target word. He benefited from min cueing to utilize strategies as well as reminders to reference visual aid throughout conversation. He stated that he found the strategies helpful. Recommended pt continue utilizing word-finding strategies in conversation in order to reduce need for cueing and increase independence with use of strategies outside of ST sessions. Pt agreeable to this recommendation. Reviewed with Patient Progress Being Made,Home Exercise Program Patient/Caregiver Understanding Good Plan Amount of Therapy Recommended 3 Months Frequency of Treatment Once a Week Length of Session 30 Minutes Therapeutic Contents Cognitive-Linguistic Training, Home Exercise Program Provided Patient/Caregiver Instruction Home Exercise Program, Questions/Concerns Therapy Recommendations Continue with Current Program
--- NOTE | 2024-03-28 17:06 | ST.OPTN ---
Visit Care Team Role Provider Type Ely Chapin PA-C Attending Provider Advanced Hr Manager Family Provider Primary Care Provider Referring Provider Address: [address] [place] [address], [id number] SINK CUTTER Treatment Note SINK CUTTER Treatment Note Start: 01/18/24 13:42 Freq: Status: Active Protocol: Document 03/28/24 16:54 SS (Rec: 03/28/24 17:06 SS [id number]) Speech Pathology Treatment Note Session Time Visit Start Time 12:15 Visit Stop Time 12:53 Total Visit Minutes 38 Visit Information Visit Number 9 Plan of Care Dates 01/18/24-04/19/24 Insurance Information [facility] Setting Treatment Setting Outpatient Care Visit Type Note Type Treatment Note Next Note Type Next Note Type Treatment Note General Information Patient History Brittanie Aguilar is a 73-year-old male who presents to this clinic for an evaluation and treatment of language and cognitive-communication concerns. Pt presented to the evaluation with his spouse, Melanie Aguilar (Liz). 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 He was at [facility] in the ICU unit for a month, and then admitted to rehabilitation at [facility] until discharge of November 20, 2023. He received home health speech therapy, which is now discontinued. Pt currently lives with his spouse who assists him with driving, medication management , household management, and finances following CVA. PMHx includes atrial fibrillation and hypertension. Pt?s spouse reports that pt initially presented with severe expressive aphasia, characterized primarily by jargon, which has since mostly resolved. Both pt and spouse noted residual word-finding difficulties during conversation and mildly imprecise speech when tired. Additionally, pt?s spouse noted decreased short-term memory, specifically when attempting to recall what happened earlier in the day, completing all steps during familiar routines (e.g., oral care), recalling safety needs during ambulation, and recalling names of familiar places and people. Pt reports his main goal for treatment is to improve his short-term memory, be able to converse with others, and ?get back to my normal self?. Subjective Identification Type Name Observations/Patient Presentation Pt arrived to the session on time. He was accompanied by his who accompanied him to the session. He was engaged and motivated throughout the session. Objective Short Term Goals 1. Patient will utilize compensatory word-finding strategies in 80% of opportunities given moderate verbal and visual cues to increase word-finding skills during simple conversational tasks. 2. Patient will explore external compensatory strategies through education and application, in order to select 1-2 that are a best fit for daily needs (ex: calendar and writing lists). 3. Patient will participate in internal memory strategy (ex: visualization and rehearsal) education and training, in order to select 1-2 that are best fit for daily needs. Jail Goals 1. Patient will use word recall strategies independently in spontaneous conversation to minimize communication breakdowns, improve his ability to communicate effectively with others, and improve QoL. 2. Patient will increase memory skills using compensatory strategies and visual/auditory aids as trained in order increase safety during ADLs and promote independence. Treatment Activities Continued to implement compensatory strategies for word-finding during unstructured conversation. Utilized graded cueing to facilitate word retrieval and use of visual aid to improve recall of strategies. Implemented use of calendar as external memory aid. Assessment Patient Response to Treatment Good Rehab Potential Good Impairments Identified Expressive language,Cognitive communication Progress Towards Goals Good Progress Assessment of Overall Progress Improving Assessment of Improvement Discussed pt progress and provided counseling as pt expressed he feels he has regressed with cognitive- communication skills. Discussed ongoing improvements with consistent use of word- finding and memory strategies and ongoing carryover of strategies outside of ST sessions. Pt verbalized he has ?high expectations? for himself and continues to be motivated to participate in tx and improve his skills. During unstructured conversation about personally meaningful topics to pt and throughout session, pt demonstrated intermittent hesitations, though was able to retrieve the target word in all opportunities given min cueing to utilize similar words and describe the target word using principles of Semantic Feature Analysis and Phonological Component Analysis. Additionally, Implemented use of calendar as pt expressed he would like to be more independent with recall of daily activities and rely on /caregiver less. Given home calendar that pt brought to session, he was able to identify upcoming and passed events/appointments with approximately 75% accuracy, increasing to 100% given prompt to reference calendar again. Additionally, recommended he add to-do tasks (e.g., shaving, taking shower , etc) that are not daily to improve his short-term memory and functional use of calendar , which he did following recommendation. Continue recommending pt utilize trained word-finding strategies in conversation and use calendar ass external aid for short-term and prospective memory. Plan to follow up in one week per POC. Reviewed with Patient Progress Being Made,Home Exercise Program Patient/Caregiver Understanding Good Plan Amount of Therapy Recommended 3 Months Frequency of Treatment Once a Week Length of Session 30 Minutes Therapeutic Contents Cognitive-Linguistic Training, Home Exercise Program Provided Patient/Caregiver Instruction Home Exercise Program, Questions/Concerns Therapy Recommendations Continue with Current Program
--- NOTE | 2024-04-04 15:03 | ST.OPTN ---
Visit Care Team Role Provider Type Ely Cahpin PA-C Attending Provider Advanced Band Manager Family Provider Primary Care Provider Referring Provider Address: [address] [place] [address], [id number] DIRECTOR OF GRANTS Treatment Note DIRECTOR OF GRANTS Treatment Note Start: 01/18/24 13:42 Freq: Status: Active Protocol: Document 04/04/24 14:48 SS (Rec: 04/04/24 15:03 SS [id number]) Speech Pathology Treatment Note Session Time Visit Start Time 12:15 Visit Stop Time 12:55 Total Visit Minutes 40 Visit Information Visit Number 10 Plan of Care Dates 01/18/24-04/19/24 Insurance Information [facility] Setting Treatment Setting Outpatient Care Visit Type Note Type Treatment Note Next Note Type Next Note Type Treatment Note General Information Patient History Brittanie Aguilar is a 73-year-old male who presents to this clinic for an evaluation and treatment of language and cognitive-communication concerns. Pt presented to the evaluation with his spouse, Melanie Aguilar (Liz). 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 He was at [facility] in the ICU unit for a month, and then admitted to rehabilitation at [facility] until discharge of November 20, 2023. He received home health speech therapy, which is now discontinued. Pt currently lives with his spouse who assists him with driving, medication management , household management, and finances following CVA. PMHx includes atrial fibrillation and hypertension. Pt?s spouse reports that pt initially presented with severe expressive aphasia, characterized primarily by jargon, which has since mostly resolved. Both pt and spouse noted residual word-finding difficulties during conversation and mildly imprecise speech when tired. Additionally, pt?s spouse noted decreased short-term memory, specifically when attempting to recall what happened earlier in the day, completing all steps during familiar routines (e.g., oral care), recalling safety needs during ambulation, and recalling names of familiar places and people. Pt reports his main goal for treatment is to improve his short-term memory, be able to converse with others, and ?get back to my normal self?. Subjective Identification Type Name Observations/Patient Presentation Pt arrived to the session on time. He was accompanied by his who accompanied him to the session. He was engaged and motivated throughout the session. Objective Short Term Goals 1. Patient will utilize compensatory word-finding strategies in 80% of opportunities given moderate verbal and visual cues to increase word-finding skills during simple conversational tasks. 2. Patient will explore external compensatory strategies through education and application, in order to select 1-2 that are a best fit for daily needs (ex: calendar and writing lists). 3. Patient will participate in internal memory strategy (ex: visualization and rehearsal) education and training, in order to select 1-2 that are best fit for daily needs. Menagerie Superintendent Goals 1. Patient will use word recall strategies independently in spontaneous conversation to minimize communication breakdowns, improve his ability to communicate effectively with others, and improve QoL. 2. Patient will increase memory skills using compensatory strategies and visual/auditory aids as trained in order increase safety during ADLs and promote independence. Treatment Activities Continued to implement compensatory strategies for word-finding during unstructured conversation. Utilized graded cueing to facilitate word retrieval and use of visual aid to improve recall of strategies. Implemented use of calendar as external memory aid. Initiated use of visual timeline as external memory aid for improved recall of progress with therapies and overall CVA recovery given perseverative questions reported by spouse. Assessment Patient Response to Treatment Good Rehab Potential Good Impairments Identified Expressive language,Cognitive communication Progress Towards Goals Good Progress Assessment of Overall Progress Improving Assessment of Improvement During unstructured conversation about personally meaningful topics to pt ( holidays, progress with therapies, etc), pt demonstrated intermittent instances of anomia, though was able to retrieve the target word in about 50% of opportunities independently. He benefited from min cueing and visual aid to utilize similar words and describe the target word using principles of Semantic Feature Analysis. Additionally, he benefited from DIRECTOR OF GRANTS writing recommended strategies on whiteboard for increased recall. Pt reported he has been utilizing calendar more consistently and has been more receptive to writing upcoming events and to-do tasks himself which has increased his short-term and prospective memory of said events. Initiated visual timeline as external memory aid to increase pt?s recall of progress made to date and promote his motivation to participate in tx. Pt?s spouse to write in missing details by next session, which she was agreeable to. Pt expressed that this would be a helpful strategy for him to utilize to be able to be more independent rather than asking his spouse for information. Plan to utilize principles of Spaced Retrieval Learning with errorless learning to increase pt?s ability to independently locate timeline when having questions about his recovery and progress with therapies. Progress note completed today. Plan to continue with word-finding strategies with faded cueing. Encouraged pt to bring in calendar and completed timeline to use as stimuli for errorless learning/recall activity. Reviewed with Patient Goals,Progress Being Made,Home Exercise Program Patient/Caregiver Understanding Good Plan Amount of Therapy Recommended 3 Months Frequency of Treatment Once a Week Length of Session 30 Minutes Therapeutic Contents Cognitive-Linguistic Training, Home Exercise Program Provided Patient/Caregiver Instruction Home Exercise Program, Questions/Concerns Therapy Recommendations Continue with Current Program
--- NOTE | 2024-04-04 16:08 | ST.PROG ---
Visit Care Team Role Provider Type Ely Chapin PA-C Attending Provider Advanced Language And Literature Division Chair Family Provider Primary Care Provider Referring Provider Address: [address] [place] [address], [id number] WELT INSOLE CHANNELER Progress Note WELT INSOLE CHANNELER Treatment Note Start: 01/18/24 13:42 Freq: Status: Active Protocol: Document 04/04/24 15:54 SS (Rec: 04/04/24 16:08 SS [id number]) Speech Pathology Treatment Note Visit Information Visit Number 10 Plan of Care Dates 04/04/24-07/03/24 Insurance Information [facility] Setting Treatment Setting Outpatient Care Visit Type Note Type Progress Note General Information Patient History Brittanie Aguilar is a 73-year-old male who presents to this clinic for an evaluation and treatment of language and cognitive-communication concerns. Pt presented to the evaluation with his spouse, Melanie Aguilar (Liz). 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 He was at [facility] in the ICU unit for a month, and then admitted to rehabilitation at [facility] until discharge of November 20, 2023. He received home health speech therapy, which is now discontinued. Pt currently lives with his spouse who assists him with driving, medication management , household management, and finances following CVA. PMHx includes atrial fibrillation and hypertension. Pt?s spouse reports that pt initially presented with severe expressive aphasia, characterized primarily by jargon, which has since mostly resolved. Both pt and spouse noted residual word-finding difficulties during conversation and mildly imprecise speech when tired. Additionally, pt?s spouse noted decreased short-term memory, specifically when attempting to recall what happened earlier in the day, completing all steps during familiar routines (e.g., oral care), recalling safety needs during ambulation, and recalling names of familiar places and people. Pt reports his main goal for treatment is to improve his short-term memory, be able to converse with others, and ?get back to my normal self?. Since initial evaluation, Brittanie has been attending cognitive linguistic therapy with WELT INSOLE CHANNELER at this clinic for 10 visits and has made good progress toward his short term and long-term goals. Throughout the course of therapy, treatment has focused on use of compensatory word- finding strategies in conversation to increase his ability to effectively communicate with familiar and unfamiliar conversation partners. Additionally, treatment focused on developing compensatory strategies to remediate memory concerns, including the use of external aids to remember upcoming events and appointments. Objective Short Term Goals 1. Patient will utilize compensatory word-finding strategies in 80% of opportunities independently to increase word-finding skills during simple conversational tasks. 2. Patient will explore external compensatory strategies through education and application, in order to select 1-2 that are a best fit for daily needs (ex: calendar and writing lists). 3. Patient will participate in internal memory strategy (ex: visualization and rehearsal) education and training, in order to select 1-2 that are best fit for daily needs. Conflicts Analyst Goals 1. Patient will use word recall strategies independently in spontaneous conversation to minimize communication breakdowns, improve his ability to communicate effectively with others, and improve QoL. 2. Patient will increase memory skills using compensatory strategies and visual/auditory aids as trained in order increase safety during ADLs and promote independence. Treatment Activities Course of treatment initiated with use of compensatory strategies for word-finding in structured activities with grading cueing in order to rehabilitate word retrieval skills. Further treatment targeting word retrieval and verbal fluency continued with Semantic Feature Analysis tasks given graded cueing from WELT INSOLE CHANNELER to facilitate increasing independence with task. Treatment for cognition/memory including development of external aids based on pt's needs (calendar and daily log) with training in the use of these aids with frequent assessment of home use based on pt and spouse report. Assessment Patient Response to Treatment Good Rehab Potential Good Impairments Identified Expressive language,Cognitive communication Progress Towards Goals Good Progress Assessment of Overall Progress Improving Assessment of Improvement SHORT TERM GOALS STG1: Patient will utilize compensatory word-finding strategies in 80% of opportunities given moderate verbal and visual cues to increase word-finding skills during simple conversational tasks. -Goal met. Pt is able to utilize compensatory strategies for word-finding including description and use of similar words in structured activities given mod cueing. However, he continues to benefit from reduced level of cueing during both structured tasks and in conversation. New goal written. STG2: Patient will explore external compensatory strategies through education and application, in order to select 1-2 that are a best fit for daily needs (ex: calendar and writing lists). -Continue goal. Pt is able to utilize calendar and daily log with prompting and often references it per pt and spouse report. However, he would benefit from further reinforcement as he does not consistently use it independently yet with plan to implement SRT and errorless learning to improve recall. Additionally, plan to continue use of recovery timeline to improve recall of events and ability to utilize visual aid independently. STG3: Patient will participate in internal memory strategy ( ex: visualization and rehearsal) education and training, in order to select 1 -2 that are best fit for daily needs. -Continue goal. This goal was not directed during treatment as word-finding and external memory aids were prioritized. New Goal: Patient will utilize compensatory word-finding strategies in 80% of opportunities independently to increase word-finding skills during simple conversational tasks. ALF GOALS LTG1: Patient will use word recall strategies independently in spontaneous conversation to minimize communication breakdowns, improve his ability to communicate effectively with others, and improve QoL. -Continue goal. Cueing has decreased from max-mod to min cueing and use of visual aid over the course of treatment. However, pt is not independent with strategies yet. 2. Patient will increase memory skills using compensatory strategies and visual/auditory aids as trained in order increase safety during ADLs and promote independence. -Continue goal. Pt and spouse report that his short-term memory has increased with use of external memory aids. However, he continues to have difficulty remembering to utilize his calendar and experiences frustration when he cannot recall the course of his recovery. Recommend ongoing implementation of these memory aids to promote independent use. Reviewed with Patient Goals,Progress Being Made,Home Exercise Program Patient/Caregiver Understanding Good Plan Amount of Therapy Recommended 3 Months Frequency of Treatment Once a Week Length of Session 30 Minutes Therapeutic Contents Client Education,Cognitive- Linguistic Training,Home Exercise Program Provided Patient/Caregiver Instruction Home Exercise Program,Plan of Care,Questions/Concerns Therapy Recommendations Continue with Current Program Visit Care Team Role Provider Type Ely Chapin PA-C Attending Provider Advanced Language And Literature Division Chair Family Provider Primary Care Provider Referring Provider Specialty: Medical Address: [address] [place] [address], [id number] Email:
--- NOTE | 2024-04-04 16:11 | ST.OPPOC ---
Physical, Occupational & Speech Therapy At [facility] Visit Care Team Role Provider Type Ely Chapin PA-C Attending Provider Advanced Life Skills Trainer Family Provider Primary Care Provider Referring Provider Address: [address] [place] [address], [id number] Speech Pathology Plan of Care Plan of Care Dates 04/04/24-07/03/[address] Ely Chapin Patient History Brittanie Aguilar is a 73-year-old male who presents to this clinic for an evaluation and treatment of language and cognitive-communication concerns . Pt presented to the evaluation with his spouse, Melanie Aguilar (Liz). 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 He was at [facility] in the ICU unit for a month, and then admitted to rehabilitation at [facility] until discharge of November 20, 2023. He received home health speech therapy, which is now discontinued . Pt currently lives with his spouse who assists him with driving, medication management, household management, and finances following CVA . PMHx includes atrial fibrillation and hypertension. Pt?s spouse reports that pt initially presented with severe expressive aphasia, characterized primarily by jargon, which has since mostly resolved. Both pt and spouse noted residual word-finding difficulties during conversation and mildly imprecise speech when tired. Additionally, pt?s spouse noted decreased short-term memory, specifically when attempting to recall what happened earlier in the day, completing all steps during familiar routines (e.g., oral care), recalling safety needs during ambulation, and recalling names of familiar places and people. Pt reports his main goal for treatment is to improve his short-term memory, be able to converse with others, and ? get back to my normal self?. Since initial evaluation, Brittanie has been attending cognitive linguistic therapy with INTERNATIONAL EXCHANGE COORDINATOR at this clinic for 10 visits and has made good progress toward his short term and long-term goals. Throughout the course of therapy, treatment has focused on use of compensatory word-finding strategies in conversation to increase his ability to effectively communicate with familiar and unfamiliar conversation partners. Additionally, treatment focused on developing compensatory strategies to remediate memory concerns, including the use of external aids to remember upcoming events and appointments. Impairments Identified Expressive language,Cognitive communication Progress Towards Goals Good Progress Short Term Goals 1. Patient will utilize compensatory word- finding strategies in 80% of opportunities independently to increase word-finding skills during simple conversational tasks. NEW GOAL 2. Patient will explore external compensatory strategies through education and application, in order to select 1-2 that are a best fit for daily needs (ex: calendar and writing lists). CONTINUE 3. Patient will participate in internal memory strategy (ex: visualization and rehearsal) education and training, in order to select 1-2 that are best fit for daily needs. CONTINUE Mcc Goals 1. Patient will use word recall strategies independently in spontaneous conversation to minimize communication breakdowns, improve his ability to communicate effectively with others, and improve QoL. CONTINUE 2. Patient will increase memory skills using compensatory strategies and visual/auditory aids as trained in order increase safety during ADLs and promote independence. CONTINUE Comment: Electronically Signed by: LILIA Sotelo 04/04/24 2558 If you are in agreement with this Plan of Care, please return a signed and dated copy. I have reviewed this Plan of Care and certify that the skilled therapy services above are required to meet the patient?s needs. Physician Signature Date Printed Name and Credentials Clinical Instructor Signature Printed Name and Credentials
--- NOTE | 2024-04-04 16:14 | ST-OP ANOTE ---
Physical, Occupational & Speech Therapy At [facility] Speech Therapy Note Updated POC sent to pt's PCP, Dr. Ely Chapin.
--- NOTE | 2024-04-19 17:12 | ST.OPTN ---
Visit Care Team Role Provider Type Ely Chapin PA-C Attending Provider Advanced General Assistant Family Provider Primary Care Provider Referring Provider Address: [address] [place] [address], [id number] NET WEB APPLICATION DEVELOPER Treatment Note NET WEB APPLICATION DEVELOPER Treatment Note Start: 01/18/24 13:42 Freq: Status: Active Protocol: Document 04/19/24 16:57 SS (Rec: 04/19/24 17:00 SS [id number]) Speech Pathology Treatment Note Session Time Visit Start Time 16:15 Visit Stop Time 16:55 Total Visit Minutes 40 Visit Information Visit Number 11 Plan of Care Dates 04/04/24-07/03/24 Insurance Information [facility] Setting Treatment Setting Outpatient Care Visit Type Note Type Treatment Note Next Note Type Next Note Type Treatment Note General Information Patient History Brittanie Aguilar is a 73-year-old male who presents to this clinic for an evaluation and treatment of language and cognitive-communication concerns. Pt presented to the evaluation with his spouse, Melanie Aguilar (Liz). 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 He was at [facility] in the ICU unit for a month, and then admitted to rehabilitation at [facility] until discharge of November 20, 2023. He received home health speech therapy, which is now discontinued. Pt currently lives with his spouse who assists him with driving, medication management , household management, and finances following CVA. PMHx includes atrial fibrillation and hypertension. Pt?s spouse reports that pt initially presented with severe expressive aphasia, characterized primarily by jargon, which has since mostly resolved. Both pt and spouse noted residual word-finding difficulties during conversation and mildly imprecise speech when tired. Additionally, pt?s spouse noted decreased short-term memory, specifically when attempting to recall what happened earlier in the day, completing all steps during familiar routines (e.g., oral care), recalling safety needs during ambulation, and recalling names of familiar places and people. Pt reports his main goal for treatment is to improve his short-term memory, be able to converse with others, and ?get back to my normal self?. Since initial evaluation, Brittanie has been attending cognitive linguistic therapy with NET WEB APPLICATION DEVELOPER at this clinic for 10 visits and has made good progress toward his short term and long-term goals. Throughout the course of therapy, treatment has focused on use of compensatory word- finding strategies in conversation to increase his ability to effectively communicate with familiar and unfamiliar conversation partners. Additionally, treatment focused on developing compensatory strategies to remediate memory concerns, including the use of external aids to remember upcoming events and appointments. Subjective Identification Type Name Observations/Patient Presentation Pt arrived to the session on time. He was accompanied by his who accompanied him to the session. He was engaged and motivated throughout the session. Objective Short Term Goals 1. Patient will utilize compensatory word-finding strategies in 80% of opportunities independently to increase word-finding skills during simple conversational tasks. NEW GOAL 2. Patient will explore external compensatory strategies through education and application, in order to select 1-2 that are a best fit for daily needs (ex: calendar and writing lists). CONTINUE 3. Patient will participate in internal memory strategy (ex: visualization and rehearsal) education and training, in order to select 1-2 that are best fit for daily needs. CONTINUE Pasting Machine Operator Goals 1. Patient will use word recall strategies independently in spontaneous conversation to minimize communication breakdowns, improve his ability to communicate effectively with others, and improve QoL. CONTINUE 2. Patient will increase memory skills using compensatory strategies and visual/auditory aids as trained in order increase safety during ADLs and promote independence. CONTINUE Treatment Activities Continued to implement compensatory strategies for word-finding during unstructured conversation, including synonyms, narrowing the topic, description, and first letter. Utilized graded cueing to facilitate word retrieval. Implemented daily log as external memory aid for recall of daily events. Assessment Patient Response to Treatment Good Rehab Potential Good Impairments Identified Expressive language,Cognitive communication Progress Towards Goals Good Progress Assessment of Overall Progress Improving Assessment of Improvement Reviewed purpose of daily log (constant review of day/date, practice with written expression and reading comprehension abilities, targeting short term memory ( what did we just do) as well as prospective memory (what do we have to do for tomorrow), track progress in therapies, focus attention, and train with compensatory tool). Discussed importance of pt writing in daily log, rather than spouse doing the writing, as it enhances attention, encoding, storage, and later retrieval of information as it actively engages the brain. Given initial prompt, pt was able to recall x4 events from the day (e.g., dr. herring, completed fence work, etc) as well as specific details from these events. He benefited from cueing from his to recall additional events. This is a good improvement from previous sessions when he had significant difficulty remembering what he had done previously that day. He filled his daily log given reminder. Recommended pt continue to fill his daily log himself to promote independent use of this memory aid which pt was agreeable to. Although word- finding was not directly addressed today, continued to discuss use of word-finding strategies when pt experienced instances of anomia or semantic paraphasias. He continues to have difficulty with independent implementation of trained word -finding strategies, though is able to use them effectively with min cueing from NET WEB APPLICATION DEVELOPER. Plan to follow up at frequency of once a week and target word- finding in addition to external memory aids in next session. Reviewed with Patient Goals,Progress Being Made,Home Exercise Program Patient/Caregiver Understanding Excellent Plan Amount of Therapy Recommended 3 Months Frequency of Treatment Once a Week Length of Session 30 Minutes Therapeutic Contents Client Education,Cognitive- Linguistic Training,Home Exercise Program Provided Patient/Caregiver Instruction Home Exercise Program,Plan of Care,Questions/Concerns Therapy Recommendations Continue with Current Program
--- NOTE | 2024-04-25 17:04 | ST.OPTN ---
Visit Care Team Role Provider Type Ely Chapin PA-C Attending Provider Advanced Geophysicist Family Provider Primary Care Provider Referring Provider Address: [address] [place] [address], [id number] BRAILLE CODER Treatment Note BRAILLE CODER Treatment Note Start: 01/18/24 13:42 Freq: Status: Active Protocol: Document 04/25/24 17:03 SS (Rec: 04/25/24 17:04 SS [id number]) Speech Pathology Treatment Note Session Time Visit Start Time 12:15 Visit Stop Time 12:50 Total Visit Minutes 35 Visit Information Visit Number 12 Plan of Care Dates 04/04/24-07/03/24 Insurance Information [facility] Setting Treatment Setting Outpatient Care Visit Type Note Type Treatment Note Next Note Type Next Note Type Treatment Note General Information Patient History Brittanie Aguilar is a 73-year-old male who presents to this clinic for an evaluation and treatment of language and cognitive-communication concerns. Pt presented to the evaluation with his spouse, Melanie Aguilar (Liz). 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 He was at [facility] in the ICU unit for a month, and then admitted to rehabilitation at [facility] until discharge of November 20, 2023. He received home health speech therapy, which is now discontinued. Pt currently lives with his spouse who assists him with driving, medication management , household management, and finances following CVA. PMHx includes atrial fibrillation and hypertension. Pt?s spouse reports that pt initially presented with severe expressive aphasia, characterized primarily by jargon, which has since mostly resolved. Both pt and spouse noted residual word-finding difficulties during conversation and mildly imprecise speech when tired. Additionally, pt?s spouse noted decreased short-term memory, specifically when attempting to recall what happened earlier in the day, completing all steps during familiar routines (e.g., oral care), recalling safety needs during ambulation, and recalling names of familiar places and people. Pt reports his main goal for treatment is to improve his short-term memory, be able to converse with others, and ?get back to my normal self?. Since initial evaluation, Brittanie has been attending cognitive linguistic therapy with BRAILLE CODER at this clinic for 10 visits and has made good progress toward his short term and long-term goals. Throughout the course of therapy, treatment has focused on use of compensatory word- finding strategies in conversation to increase his ability to effectively communicate with familiar and unfamiliar conversation partners. Additionally, treatment focused on developing compensatory strategies to remediate memory concerns, including the use of external aids to remember upcoming events and appointments. Subjective Identification Type Name Observations/Patient Presentation Pt arrived to the session on time. He was accompanied by his who accompanied him to the session. He was engaged and motivated throughout the session. Objective Short Term Goals 1. Patient will utilize compensatory word-finding strategies in 80% of opportunities independently to increase word-finding skills during simple conversational tasks. NEW GOAL 2. Patient will explore external compensatory strategies through education and application, in order to select 1-2 that are a best fit for daily needs (ex: calendar and writing lists). CONTINUE 3. Patient will participate in internal memory strategy (ex: visualization and rehearsal) education and training, in order to select 1-2 that are best fit for daily needs. CONTINUE Business Analytics Manager Goals 1. Patient will use word recall strategies independently in spontaneous conversation to minimize communication breakdowns, improve his ability to communicate effectively with others, and improve QoL. CONTINUE 2. Patient will increase memory skills using compensatory strategies and visual/auditory aids as trained in order increase safety during ADLs and promote independence. CONTINUE Treatment Activities Facilitated discussion re: use of external memory aids, including daily log and calendar. Initiated use of medical timeline to improve recall of events and enhance motivation during recovery process. Implemented Spaced Retrieval Training (SRT) to target recall of names of medications that pt has difficulty with. Discussed benefit of pt and spouse attending stroke support group . Will provide list of local group next session. Assessment Patient Response to Treatment Good Rehab Potential Good Impairments Identified Expressive language,Cognitive communication Progress Towards Goals Good Progress Assessment of Overall Progress Improving Assessment of Improvement Pt and spouse reported he has been writing in his daily log and calendar independently. Pt expressed that he is able to recall events from current day or previous day with less difficulty since beginning to write in daily log and calendar by himself. Spouse brought medical events that she had created with pt at home, though they have not initiated use yet. Recommended pt place timeline in central location and reference timeline visual when he cannot recall specific events or progress with therapies or would benefit from additional motivation. Pt agreeable to this recommendation. Implemented Spaced Retrieval Therapy, which uses an evidence based approach to help people with severe memory impairments actively train to recall important information (but only for information that does not change day to day). Recalling an answer over multiplying intervals of time, such as 1 minute, 2 minutes, 8 minutes, and so on, helps to encode the information in care home memory. It is designed to maximize the amount of successful responses , so if there is an error, training begins again at the last interval of time that produced a successful response . If responses continue to be incorrect, the stimulus, target, or environmental factors can be reviewed. Spaced retrieval was used to assist recall of names of medications, as pt gets frustrated when he cannot recall them. Lead question: ? What do you call that big white pill?? Target response: ?Potassium?. Pt recalled the target response at first practice and was able to recall the answer up to 5 minute delay, with incorrect response at 10 minute delay. Recommended pt continue to utilize external strategies for memory as trained as well as word-finding strategies in conversation. Recommended he and spouse implement SRT for recall of medication name and provided explicit instruction. Plan to continue targeting use of word-finding and memory strategies in next session and trial use of visual aid during SRT to increase recall. Reviewed with Patient Goals,Progress Being Made,Home Exercise Program Patient/Caregiver Understanding Excellent Plan Amount of Therapy Recommended 3 Months Frequency of Treatment Once a Week Length of Session 30 Minutes Therapeutic Contents Client Education,Cognitive- Linguistic Training,Home Exercise Program Provided Patient/Caregiver Instruction Home Exercise Program,Plan of Care,Questions/Concerns Therapy Recommendations Continue with Current Program
--- NOTE | 2024-05-02 14:47 | ST.OPTN ---
Visit Care Team Role Provider Type Ely Chapin PA-C Attending Provider Advanced Drafter Construction Family Provider Primary Care Provider Referring Provider Address: [address] [place] [address], [id number] TEST ANALYST Treatment Note TEST ANALYST Treatment Note Start: 01/18/24 13:42 Freq: Status: Active Protocol: Document 05/02/24 14:32 SS (Rec: 05/02/24 14:46 SS [id number]) Speech Pathology Treatment Note Session Time Visit Start Time 12:19 Visit Stop Time 13:00 Total Visit Minutes 41 Visit Information Visit Number 13 Plan of Care Dates 04/04/24-07/03/24 Insurance Information [facility] Setting Treatment Setting Outpatient Care Visit Type Note Type Treatment Note Next Note Type Next Note Type Treatment Note General Information Patient History Brittanie Aguilar is a 73-year-old male who presents to this clinic for an evaluation and treatment of language and cognitive-communication concerns. Pt presented to the evaluation with his spouse, Melanie Aguilar (Liz). 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 He was at [facility] in the ICU unit for a month, and then admitted to rehabilitation at [facility] until discharge of November 20, 2023. He received home health speech therapy, which is now discontinued. Pt currently lives with his spouse who assists him with driving, medication management , household management, and finances following CVA. PMHx includes atrial fibrillation and hypertension. Pt?s spouse reports that pt initially presented with severe expressive aphasia, characterized primarily by jargon, which has since mostly resolved. Both pt and spouse noted residual word-finding difficulties during conversation and mildly imprecise speech when tired. Additionally, pt?s spouse noted decreased short-term memory, specifically when attempting to recall what happened earlier in the day, completing all steps during familiar routines (e.g., oral care), recalling safety needs during ambulation, and recalling names of familiar places and people. Pt reports his main goal for treatment is to improve his short-term memory, be able to converse with others, and ?get back to my normal self?. Since initial evaluation, Brittanie has been attending cognitive linguistic therapy with TEST ANALYST at this clinic for 10 visits and has made good progress toward his short term and long-term goals. Throughout the course of therapy, treatment has focused on use of compensatory word- finding strategies in conversation to increase his ability to effectively communicate with familiar and unfamiliar conversation partners. Additionally, treatment focused on developing compensatory strategies to remediate memory concerns, including the use of external aids to remember upcoming events and appointments. Subjective Identification Type Name Observations/Patient Presentation Pt arrived to the session on time. He was engaged and motivated throughout the session. Objective Short Term Goals 1. Patient will utilize compensatory word-finding strategies in 80% of opportunities independently to increase word-finding skills during simple conversational tasks. NEW GOAL 2. Patient will explore external compensatory strategies through education and application, in order to select 1-2 that are a best fit for daily needs (ex: calendar and writing lists). CONTINUE 3. Patient will participate in internal memory strategy (ex: visualization and rehearsal) education and training, in order to select 1-2 that are best fit for daily needs. CONTINUE Halfway Goals 1. Patient will use word recall strategies independently in spontaneous conversation to minimize communication breakdowns, improve his ability to communicate effectively with others, and improve QoL. CONTINUE 2. Patient will increase memory skills using compensatory strategies and visual/auditory aids as trained in order increase safety during ADLs and promote independence. CONTINUE Treatment Activities Initially planned to continue targeting SRT, though pt expressed that he would like to focus on word-finding today as it has been causing him increased frustration this week. Implemented trained strategies (similar/related words, first letter or sound, and describing) and wrote thm down on whiteboard as memory aid to reference during semi- structured conversation re: functional and personally meaningful topics. Provided information for local stroke support group to pt and . Provided home practice. Assessment Patient Response to Treatment Good Rehab Potential Good Impairments Identified Expressive language,Cognitive communication Progress Towards Goals Good Progress Assessment of Overall Progress Improving Assessment of Improvement Pt reported he has been completing his daily log and calendar independently and find them very helpful as memory aids. Pt expressed ongoing difficulty with word- finding, specifically during conversations with spouse and caregivers, as well as therapy staff. He explained that although he knows his trained strategies, he continues to forget to utilize them in the moments, and instead abandons the topic, which causes his frustration and decreased self -confidence in his skills. Given promote to identify trained word-finding strategies, pt was able to independently recall 1/3 strategies. TEST ANALYST wrote all three strategies ion whiteboard for pt to utilize as memory aid and reference throughout the session. During semi-structured conversation (topics included food, current events, and stroke recovery), Brittanie demonstrated intermittent instances of anomia, benefitted from TEST ANALYST reminders to reference written strategies. He was able to utilize similar/related words with most ease and did so independently about half the time. He also benefited from describing target word/concept , though required consisted cueing to initiate description . Once he began to describe the word he was about to provide a complete and effective description in about 80% of opportunities. Provided education re: importance of use of word- finding strategies in other contexts and with other communication partners in order to increase pt?s communicative effectiveness and increase confidence when socializing or expressing thoughts, ideas, and feelings. Pt expressed understanding and stated he felt motivated to continue implementing strategies on his own with support from spouse and caregiver. Provided written word-finding strategies to utilize during home practice and reviewed functional opportunities at home for use. Provided information re; stroke support group as discussed in previous session. Plan to continue targeting use of word -finding and memory strategies in next session given pt progress and report. Reviewed with Patient Goals,Progress Being Made,Home Exercise Program Patient/Caregiver Understanding Excellent Plan Amount of Therapy Recommended 3 Months Frequency of Treatment Once a Week Length of Session 30 Minutes Therapeutic Contents Client Education,Cognitive- Linguistic Training,Home Exercise Program Provided Patient/Caregiver Instruction Home Exercise Program,Plan of Care,Questions/Concerns Therapy Recommendations Continue with Current Program
--- NOTE | 2024-05-09 17:45 | ST.OPTN ---
Visit Care Team Role Provider Type Ely Chapin PA-C Attending Provider Advanced Chemist Helper Family Provider Primary Care Provider Referring Provider Address: [address] [place] [address], [id number] HOGSHEAD DUMPER Treatment Note HOGSHEAD DUMPER Treatment Note Start: 01/18/24 13:42 Freq: Status: Active Protocol: Document 05/09/24 17:37 SS (Rec: 05/09/24 17:45 SS [id number]) Speech Pathology Treatment Note Session Time Visit Start Time 12:20 Visit Stop Time 13:00 Total Visit Minutes 40 Visit Information Visit Number 14 Plan of Care Dates 04/04/24-07/03/24 Insurance Information [facility] Setting Treatment Setting Outpatient Care Visit Type Note Type Treatment Note Next Note Type Next Note Type Treatment Note General Information Patient History Brittanie Aguilar is a 73-year-old male who presents to this clinic for an evaluation and treatment of language and cognitive-communication concerns. Pt presented to the evaluation with his spouse, Melanie Aguilar (Liz). 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 He was at [facility] in the ICU unit for a month, and then admitted to rehabilitation at [facility] until discharge of November 20, 2023. He received home health speech therapy, which is now discontinued. Pt currently lives with his spouse who assists him with driving, medication management , household management, and finances following CVA. PMHx includes atrial fibrillation and hypertension. Pt?s spouse reports that pt initially presented with severe expressive aphasia, characterized primarily by jargon, which has since mostly resolved. Both pt and spouse noted residual word-finding difficulties during conversation and mildly imprecise speech when tired. Additionally, pt?s spouse noted decreased short-term memory, specifically when attempting to recall what happened earlier in the day, completing all steps during familiar routines (e.g., oral care), recalling safety needs during ambulation, and recalling names of familiar places and people. Pt reports his main goal for treatment is to improve his short-term memory, be able to converse with others, and ?get back to my normal self?. Since initial evaluation, Brittanie has been attending cognitive linguistic therapy with HOGSHEAD DUMPER at this clinic for 10 visits and has made good progress toward his short term and long-term goals. Throughout the course of therapy, treatment has focused on use of compensatory word- finding strategies in conversation to increase his ability to effectively communicate with familiar and unfamiliar conversation partners. Additionally, treatment focused on developing compensatory strategies to remediate memory concerns, including the use of external aids to remember upcoming events and appointments. Subjective Identification Type Name Observations/Patient Presentation Pt arrived to the session on time. He was engaged and motivated throughout the session. Objective Short Term Goals 1. Patient will utilize compensatory word-finding strategies in 80% of opportunities independently to increase word-finding skills during simple conversational tasks. NEW GOAL 2. Patient will explore external compensatory strategies through education and application, in order to select 1-2 that are a best fit for daily needs (ex: calendar and writing lists). CONTINUE 3. Patient will participate in internal memory strategy (ex: visualization and rehearsal) education and training, in order to select 1-2 that are best fit for daily needs. CONTINUE Mcc Goals 1. Patient will use word recall strategies independently in spontaneous conversation to minimize communication breakdowns, improve his ability to communicate effectively with others, and improve QoL. CONTINUE 2. Patient will increase memory skills using compensatory strategies and visual/auditory aids as trained in order increase safety during ADLs and promote independence. CONTINUE Treatment Activities Semantic Feature Analysis in order to target use of circumlocution and strengthen semantic networks for increased word retrieval. Implemented trained strategies (similar/related words, first letter or sound, and describing) and wrote them down on whiteboard as memory aid to reference during semi- structured conversation re: functional and personally meaningful topics. Provided home practice. Assessment Patient Response to Treatment Good Rehab Potential Good Impairments Identified Expressive language,Cognitive communication Progress Towards Goals Good Progress Assessment of Overall Progress Improving Assessment of Improvement Semantic Feature Analysis (SFA ) implemented to target anomia and use of circumlocution for improved word retrieval. The pt was provided with a visual graphic organizer with six categories (category/group, use, action, properties, location, and association) and was asked to generate words across the six categories for personally-relevant, functional words. He produced an average of 11 content words per target photo, increasing to 18 content words given semantic, phonemic, and gestural cueing. Given prompt to identify trained word-finding strategies, pt was able to independently recall 2/3 strategies. HOGSHEAD DUMPER wrote all three strategies ion whiteboard for pt to utilize as memory aid and reference throughout the session. During semi-structured conversation (topics included weekend, world news, and recent travel out of state), Brittanie demonstrated intermittent instances of anomia and hesitations. He benefitted from min cueing to reference written strategies. He had the most difficulty with the description strategy and benefited from use of SFA framework to come up with semantic features to include in his description. Without use of SFA framework, he would get frustrated in most opportunities and had significant difficulty initiating a description. Recommended he continue to utilize SFA framework and trained strategies in everyday conversation in order to generalize them outside of ST sessions. Pt agreeable. Discussed use of graded cueing with caregiver in order to facilitate more independent use of strategies. Plan to continue targeting use of word-finding and memory strategies in next session at frequency of once a week given pt progress and report. Reviewed with Patient Goals,Progress Being Made,Home Exercise Program Patient/Caregiver Understanding Excellent Plan Amount of Therapy Recommended 3 Months Frequency of Treatment Once a Week Length of Session 30 Minutes Therapeutic Contents Client Education,Cognitive- Linguistic Training,Home Exercise Program Provided Patient/Caregiver Instruction Home Exercise Program,Plan of Care,Questions/Concerns Therapy Recommendations Continue with Current Program
--- NOTE | 2024-05-16 14:52 | ST.OPTN ---
Visit Care Team Role Provider Type Ely Chapin PA-C Attending Provider Advanced Tray Server Family Provider Primary Care Provider Referring Provider Address: [address] [place] [address], [id number] PANEL ASSEMBLER Treatment Note PANEL ASSEMBLER Treatment Note Start: 01/18/24 13:42 Freq: Status: Active Protocol: Document 05/16/24 14:40 SS (Rec: 05/16/24 14:52 SS [id number]) Speech Pathology Treatment Note Session Time Visit Start Time 12:19 Visit Stop Time 13:00 Total Visit Minutes 41 Visit Information Visit Number 15 Plan of Care Dates 04/04/24-07/03/24 Insurance Information [facility] Setting Treatment Setting Outpatient Care Visit Type Note Type Treatment Note Next Note Type Next Note Type Treatment Note General Information Patient History Brittanie Aguilar is a 73-year-old male who presents to this clinic for an evaluation and treatment of language and cognitive-communication concerns. Pt presented to the evaluation with his spouse, Melanie Aguilar (Liz). 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 He was at [facility] in the ICU unit for a month, and then admitted to rehabilitation at [facility] until discharge of November 20, 2023. He received home health speech therapy, which is now discontinued. Pt currently lives with his spouse who assists him with driving, medication management , household management, and finances following CVA. PMHx includes atrial fibrillation and hypertension. Pt?s spouse reports that pt initially presented with severe expressive aphasia, characterized primarily by jargon, which has since mostly resolved. Both pt and spouse noted residual word-finding difficulties during conversation and mildly imprecise speech when tired. Additionally, pt?s spouse noted decreased short-term memory, specifically when attempting to recall what happened earlier in the day, completing all steps during familiar routines (e.g., oral care), recalling safety needs during ambulation, and recalling names of familiar places and people. Pt reports his main goal for treatment is to improve his short-term memory, be able to converse with others, and ?get back to my normal self?. Since initial evaluation, Brittanie has been attending cognitive linguistic therapy with PANEL ASSEMBLER at this clinic for 10 visits and has made good progress toward his short term and long-term goals. Throughout the course of therapy, treatment has focused on use of compensatory word- finding strategies in conversation to increase his ability to effectively communicate with familiar and unfamiliar conversation partners. Additionally, treatment focused on developing compensatory strategies to remediate memory concerns, including the use of external aids to remember upcoming events and appointments. Subjective Identification Type Name Observations/Patient Presentation Pt arrived to the session on time. He was engaged and motivated throughout the session. His , Anel, accompanied him to the session today. Objective Short Term Goals 1. Patient will utilize compensatory word-finding strategies in 80% of opportunities independently to increase word-finding skills during simple conversational tasks. NEW GOAL 2. Patient will explore external compensatory strategies through education and application, in order to select 1-2 that are a best fit for daily needs (ex: calendar and writing lists). CONTINUE 3. Patient will participate in internal memory strategy (ex: visualization and rehearsal) education and training, in order to select 1-2 that are best fit for daily needs. CONTINUE Detention Goals 1. Patient will use word recall strategies independently in spontaneous conversation to minimize communication breakdowns, improve his ability to communicate effectively with others, and improve QoL. CONTINUE 2. Patient will increase memory skills using compensatory strategies and visual/auditory aids as trained in order increase safety during ADLs and promote independence. CONTINUE Treatment Activities Semantic Feature Analysis in order to target use of circumlocution and strengthen semantic networks for increased word retrieval, followed by functional description of target word. Use of circumlocution during conversation to target carryover and generalization of skills as Brittanie has difficulty with use of compensatory strategies outside of structured asks. Provided home practice. Assessment Patient Response to Treatment Good Rehab Potential Good Impairments Identified Expressive language,Cognitive communication Progress Towards Goals Good Progress Assessment of Overall Progress Improving Assessment of Improvement Brittanie and his reported ongoing improvements to short- term memory while continuing to use trained memory aids at home. Brittanie is now able to recall details from recent events (e.g., recent eye operation) as well as prospective information (e.g., follow-ups for eye procedure) . He has most difficulty when he is tired/overwhelmed, though does well when his or caregiver cue him to refer to him memory book or calendar which he fills in mostly independently. Semantic Feature Analysis (SFA ) implemented to target anomia and use of circumlocution for improved word retrieval. The pt was provided with a visual graphic organizer with six categories (category/group, use, action, properties, location, and association) and was asked to generate words across the six categories for personally-relevant, functional words. He produced an average of 14 content words per target photo, increasing to 20+ content words given semantic cueing and reminder to add more information (e.g., ?how can you make it specifically about __??. He was able to produce effective descriptions of target words in 65% of opportunities, increasing to 100% given min cueing to reference semantic features from SFA task and visual aid via use of framework. In unstructured conversation, he demonstrated occasional instances of anomia, and often looked to his to help him find the word. Discussed how it is important for him to be independent with se of word-finding strategies, particularly when out in the community without his . Brittanie was receptive to encouragement. He benefited from frequent cueing to refer to SFA visual aid or verbal cueing to use circumlocution ( e.g., ?can you describe it??, ?what could you say to make me think of the word??). While he is able to utilize circumlocution and other word- finding strategies fairly well in structured tasks, he continues to need reinforcement to carryover these skills to unstructured conversation with increased cognitive demands. Pt and agreeable to home practice provided. Reviewed with Patient Goals,Progress Being Made,Home Exercise Program Patient/Caregiver Understanding Excellent Plan Amount of Therapy Recommended 3 Months Frequency of Treatment Once a Week Length of Session 30 Minutes Therapeutic Contents Client Education,Cognitive- Linguistic Training,Home Exercise Program Provided Patient/Caregiver Instruction Home Exercise Program,Plan of Care,Questions/Concerns Therapy Recommendations Continue with Current Program
--- NOTE | 2024-05-30 14:27 | ST.OPTN ---
Visit Care Team Role Provider Type Ely Chapin PA-C Attending Provider Advanced Resident Manager Family Provider Primary Care Provider Referring Provider Address: [address] [place] [address], [id number] REVENUE FIELD AGENT Treatment Note REVENUE FIELD AGENT Treatment Note Start: 01/18/24 13:42 Freq: Status: Active Protocol: Document 05/30/24 14:17 SS (Rec: 05/30/24 14:27 SS [id number]) Speech Pathology Treatment Note Session Time Visit Start Time 12:17 Visit Stop Time 12:55 Total Visit Minutes 38 Visit Information Visit Number 16 Plan of Care Dates 04/04/24-07/03/24 Insurance Information [facility] Setting Treatment Setting Outpatient Care Visit Type Note Type Treatment Note Next Note Type Next Note Type Treatment Note General Information Patient History Brittanie Aguilar is a 73-year-old male who presents to this clinic for an evaluation and treatment of language and cognitive-communication concerns. Pt presented to the evaluation with his spouse, Melanie Aguilar (Liz). 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 He was at [facility] in the ICU unit for a month, and then admitted to rehabilitation at [facility] until discharge of November 20, 2023. He received home health speech therapy, which is now discontinued. Pt currently lives with his spouse who assists him with driving, medication management , household management, and finances following CVA. PMHx includes atrial fibrillation and hypertension. Pt?s spouse reports that pt initially presented with severe expressive aphasia, characterized primarily by jargon, which has since mostly resolved. Both pt and spouse noted residual word-finding difficulties during conversation and mildly imprecise speech when tired. Additionally, pt?s spouse noted decreased short-term memory, specifically when attempting to recall what happened earlier in the day, completing all steps during familiar routines (e.g., oral care), recalling safety needs during ambulation, and recalling names of familiar places and people. Pt reports his main goal for treatment is to improve his short-term memory, be able to converse with others, and ?get back to my normal self?. Since initial evaluation, Brittanie has been attending cognitive linguistic therapy with REVENUE FIELD AGENT at this clinic for 10 visits and has made good progress toward his short term and long-term goals. Throughout the course of therapy, treatment has focused on use of compensatory word- finding strategies in conversation to increase his ability to effectively communicate with familiar and unfamiliar conversation partners. Additionally, treatment focused on developing compensatory strategies to remediate memory concerns, including the use of external aids to remember upcoming events and appointments. Subjective Identification Type Name Observations/Patient Presentation Pt arrived to the session on time. He was engaged and motivated throughout the session. His , Anel, accompanied him to the session today. Objective Short Term Goals 1. Patient will utilize compensatory word-finding strategies in 80% of opportunities independently to increase word-finding skills during simple conversational tasks. NEW GOAL 2. Patient will explore external compensatory strategies through education and application, in order to select 1-2 that are a best fit for daily needs (ex: calendar and writing lists). CONTINUE 3. Patient will participate in internal memory strategy (ex: visualization and rehearsal) education and training, in order to select 1-2 that are best fit for daily needs. CONTINUE Usp Goals 1. Patient will use word recall strategies independently in spontaneous conversation to minimize communication breakdowns, improve his ability to communicate effectively with others, and improve QoL. CONTINUE 2. Patient will increase memory skills using compensatory strategies and visual/auditory aids as trained in order increase safety during ADLs and promote independence. CONTINUE Treatment Activities Targeted use of circumlocution during conversation re: favorite restaurants to target carryover and generalization of skills to conversation. Assisted pt in creating visual aid as external memory aid for reminders in the bathroom as he has difficulty recalling that information. Provided home practice. Assessment Patient Response to Treatment Good Rehab Potential Good Impairments Identified Expressive language,Cognitive communication Progress Towards Goals Good Progress Assessment of Overall Progress Improving Assessment of Improvement In conversation re: favorite restaurants which is a topic pt enjoys discussing, he demonstrated occasional instances of anomia and tended to hesitate or ask his for help. Brittanie continues to have difficulty utilizing trained strategies independently, though can recall them when asked. He benefited from frequent cueing to use semantic features from SFA framework or verbal cueing to use circumlocution ( e.g., ?can you describe it??, ?can you use a similar word??) . Given cueing, he was able to effectively use circumlocution to talk around target word and describe it effectively in approximately 70% of opportunities. 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 Brittanie initially hesitant to implement use of visual aid, but agreeable given additional rationale. REVENUE FIELD AGENT assisted pt in creating visual aid including two reminders using simple and concise language and printed it on a bright piece of paper. Recommended pt place it at eye level in a central location in the bathroom and have /caregiver reference it in order to ensure that referencing it becomes habitual. Pt and agreeable to this recommendation and will report on progress in next session. Plan to continue targeting functional word-finding and use of memory aids to increase independence and reduce reliance on cueing. Reviewed with Patient Goals,Progress Being Made,Home Exercise Program Patient/Caregiver Understanding Excellent Plan Amount of Therapy Recommended 3 Months Frequency of Treatment Once a Week Length of Session 30 Minutes Therapeutic Contents Client Education,Cognitive- Linguistic Training,Home Exercise Program Provided Patient/Caregiver Instruction Home Exercise Program,Plan of Care,Questions/Concerns Therapy Recommendations Continue with Current Program
--- NOTE | 2024-06-06 16:05 | ST.OPTN ---
Visit Care Team Role Provider Type Ely Chapin PA-C Attending Provider Advanced Triage Assistant Family Provider Primary Care Provider Referring Provider Address: [address] [place] [address], [id number] TYPIST Treatment Note TYPIST Treatment Note Start: 01/18/24 13:42 Freq: Status: Active Protocol: Document 06/06/24 15:05 SS (Rec: 06/06/24 15:13 SS [id number]) Speech Pathology Treatment Note Session Time Visit Start Time 12:15 Visit Stop Time 12:55 Total Visit Minutes 40 Visit Information Visit Number 17 Plan of Care Dates 04/04/24-07/03/24 Insurance Information [facility] Setting Treatment Setting Outpatient Care Visit Type Note Type Treatment Note Next Note Type Next Note Type Treatment Note General Information Patient History Brittanie Aguilar is a 73-year-old male who presents to this clinic for an evaluation and treatment of language and cognitive-communication concerns. Pt presented to the evaluation with his spouse, Melanie Aguilar (Liz). 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 He was at [facility] in the ICU unit for a month, and then admitted to rehabilitation at [facility] until discharge of November 20, 2023. He received home health speech therapy, which is now discontinued. Pt currently lives with his spouse who assists him with driving, medication management , household management, and finances following CVA. PMHx includes atrial fibrillation and hypertension. Pt?s spouse reports that pt initially presented with severe expressive aphasia, characterized primarily by jargon, which has since mostly resolved. Both pt and spouse noted residual word-finding difficulties during conversation and mildly imprecise speech when tired. Additionally, pt?s spouse noted decreased short-term memory, specifically when attempting to recall what happened earlier in the day, completing all steps during familiar routines (e.g., oral care), recalling safety needs during ambulation, and recalling names of familiar places and people. Pt reports his main goal for treatment is to improve his short-term memory, be able to converse with others, and ?get back to my normal self?. Since initial evaluation, Brittanie has been attending cognitive linguistic therapy with TYPIST at this clinic for 10 visits and has made good progress toward his short term and long-term goals. Throughout the course of therapy, treatment has focused on use of compensatory word- finding strategies in conversation to increase his ability to effectively communicate with familiar and unfamiliar conversation partners. Additionally, treatment focused on developing compensatory strategies to remediate memory concerns, including the use of external aids to remember upcoming events and appointments. Subjective Identification Type Name Observations/Patient Presentation Pt arrived to the session on time. He was engaged and motivated throughout the session. His , Anel, accompanied him to the session today. Objective Short Term Goals 1. Patient will utilize compensatory word-finding strategies in 80% of opportunities independently to increase word-finding skills during simple conversational tasks. NEW GOAL 2. Patient will explore external compensatory strategies through education and application, in order to select 1-2 that are a best fit for daily needs (ex: calendar and writing lists). CONTINUE 3. Patient will participate in internal memory strategy (ex: visualization and rehearsal) education and training, in order to select 1-2 that are best fit for daily needs. CONTINUE Senior Living Goals 1. Patient will use word recall strategies independently in spontaneous conversation to minimize communication breakdowns, improve his ability to communicate effectively with others, and improve QoL. CONTINUE 2. Patient will increase memory skills using compensatory strategies and visual/auditory aids as trained in order increase safety during ADLs and promote independence. CONTINUE Treatment Activities Discussed use of previously trained external memory strategies. Targeted use of circumlocution during conversation via principles of Semantic Feature Analysis to strengthen semantic networks and use of similar/ related words to target carryover and generalization of word-finding skills to conversation and reduce need for cueing. Provided home practice. Assessment Patient Response to Treatment Good Rehab Potential Good Impairments Identified Expressive language,Cognitive communication Progress Towards Goals Good Progress Assessment of Overall Progress Improving Assessment of Improvement Pt and spouse reported that memory book and calendar continue to be helpful and improve short-term memory and prospective memory. Additionally, pt reported that visual aid created last session has been effective and he now references it often in the bathroom. Given questions from spouse, TYPIST provided education re: the benefits of good sleep, discussed pt?s current sleep habits, and brainstormed situations/ways pt might want to change his sleep routine to include naps in the middle of the day to maximize his brain health and cognitive function. During semi-structured conversation, Brittanie demonstrated occasional instances of anomia and had difficulty utilizing previously trained strategies independently, though is able to recall them when prompted. Brittanie was able to use trained strategies independently in about 20% of opportunities. He benefited from frequent cueing to use semantic features from SFA framework or verbal cueing to use circumlocution (e.g., ?can you describe it??, ?can you use a similar word??). Given cueing , he was able to effectively use circumlocution to talk around target word and describe it effectively in about 80-90% of opportunities. Brittanie demonstrates increased ability to utilize word- finding strategies in conversation, though will benefit from ongoing reinforcement to reduce need for cueing and carryover skills to various settings and with carious communication partners. Plan to continue targeting functional word- finding and use of memory aids in one week per POC given pt progress. Reviewed with Patient Goals,Progress Being Made,Home Exercise Program Patient/Caregiver Understanding Excellent Plan Amount of Therapy Recommended 3 Months Frequency of Treatment Once a Week Length of Session 30 Minutes Therapeutic Contents Client Education,Cognitive- Linguistic Training,Home Exercise Program Provided Patient/Caregiver Instruction Home Exercise Program,Plan of Care,Questions/Concerns Therapy Recommendations Continue with Current Program
--- NOTE | 2024-06-13 14:08 | ST.OPTN ---
Visit Care Team Role Provider Type Ely Chapin PA-C Attending Provider Advanced Cook Barbecue Family Provider Primary Care Provider Referring Provider Address: [address] [place] [address], [id number] PROPERTY MANAGEMENT SUPERVISOR Treatment Note PROPERTY MANAGEMENT SUPERVISOR Treatment Note Start: 01/18/24 13:42 Freq: Status: Active Protocol: Document 06/13/24 13:52 SS (Rec: 06/13/24 14:08 SS [id number]) Speech Pathology Treatment Note Session Time Visit Start Time 12:18 Visit Stop Time 12:52 Total Visit Minutes 34 Visit Information Visit Number 18 Plan of Care Dates 04/04/24-07/03/24 Insurance Information [facility] Setting Treatment Setting Outpatient Care Visit Type Note Type Treatment Note Next Note Type Next Note Type Treatment Note General Information Patient History Brittanie Aguilar is a 73-year-old male who presents to this clinic for an evaluation and treatment of language and cognitive-communication concerns. Pt presented to the evaluation with his spouse, Melanie Aguilar (Liz). 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 He was at [facility] in the ICU unit for a month, and then admitted to rehabilitation at [facility] until discharge of November 20, 2023. He received home health speech therapy, which is now discontinued. Pt currently lives with his spouse who assists him with driving, medication management , household management, and finances following CVA. PMHx includes atrial fibrillation and hypertension. Pt?s spouse reports that pt initially presented with severe expressive aphasia, characterized primarily by jargon, which has since mostly resolved. Both pt and spouse noted residual word-finding difficulties during conversation and mildly imprecise speech when tired. Additionally, pt?s spouse noted decreased short-term memory, specifically when attempting to recall what happened earlier in the day, completing all steps during familiar routines (e.g., oral care), recalling safety needs during ambulation, and recalling names of familiar places and people. Pt reports his main goal for treatment is to improve his short-term memory, be able to converse with others, and ?get back to my normal self?. Since initial evaluation, Brittanie has been attending cognitive linguistic therapy with PROPERTY MANAGEMENT SUPERVISOR at this clinic for 10 visits and has made good progress toward his short term and long-term goals. Throughout the course of therapy, treatment has focused on use of compensatory word- finding strategies in conversation to increase his ability to effectively communicate with familiar and unfamiliar conversation partners. Additionally, treatment focused on developing compensatory strategies to remediate memory concerns, including the use of external aids to remember upcoming events and appointments. Subjective Identification Type Name Observations/Patient Presentation Pt arrived to the session on time with his and caregiver who did not accompany him. He was engaged and motivated throughout the session. Objective Short Term Goals 1. Patient will utilize compensatory word-finding strategies in 80% of opportunities independently to increase word-finding skills during simple conversational tasks. NEW GOAL 2. Patient will explore external compensatory strategies through education and application, in order to select 1-2 that are a best fit for daily needs (ex: calendar and writing lists). CONTINUE 3. Patient will participate in internal memory strategy (ex: visualization and rehearsal) education and training, in order to select 1-2 that are best fit for daily needs. CONTINUE [facility] Goals 1. Patient will use word recall strategies independently in spontaneous conversation to minimize communication breakdowns, improve his ability to communicate effectively with others, and improve QoL. CONTINUE 2. Patient will increase memory skills using compensatory strategies and visual/auditory aids as trained in order increase safety during ADLs and promote independence. CONTINUE Treatment Activities Conversation about events/ appointments within the last week targeting short-term recall with use of trained memory log and calendar when needed as external memory aids . Targeted use of circumlocution and multi-modal compensatory strategies for word-finding (gesture, drawing , first letter, etc) during conversation to target carryover and generalization of word-finding skills to conversation and reduce need for cueing from communication partner. Provided home practice. Assessment Patient Response to Treatment Good Rehab Potential Good Impairments Identified Expressive language,Cognitive communication Progress Towards Goals Good Progress Assessment of Overall Progress Improving Assessment of Improvement Pt and spouse reported that they attended a local stroke support group. Pt?s spouse reported that it was beneficial, though pt is unsure if he would like to attend again. Additionally, pt ?s spouse with questions re: small amounts of occasional labial escape during meals, though pt expressed he would not like to target swallowing function and would prefer to continue to focus on cognitive -communication. During conversation about last week?s events and appointments, pt was able to recall specific details with approximately 80% accuracy, increasing to 100% accuracy with use of memory book and calendar, which he referenced independently. He reports he has been noticing increased short-term memory and has been utilizing memory aids as trained. He may benefit from establishment of additional memory aids as needs arise throughout treatment. During conversation, Brittanie demonstrated occasional instances of anomia and demonstrated increased ability to utilize previously trained strategies independently. Today, he utilized circumlocution, gesturing, and writing/drawing about half of the time during moments of word-finding difficulty. Additionally, he recalled strategy of taking a deep breath frequently in order to reduce feelings of overwhelm and frustration that tend to make it more challenging to use compensatory strategies. He benefited from occasional verbal cueing to use circumlocution (e.g., ?can you describe it??, ?can you use a similar word??), phonemic cues, and prompting to think of the first letter of the word. For example, when he had difficulty coming up with [employer], he independently christy the [employer] logo, but required cueing to identify semantic features as well as first letter/sound, after which he was able to retrieve the target word. Given cueing, he was able to effectively use circumlocution and other in about 80% of opportunities. Overall, Brittanie demonstrates increased functional short- term memory and use of trained memory aids. He also demonstrates increased ability to utilize word-finding strategies in conversation more independently, though still requires frequent cueing and reminders to reduce feelings of frustration/ overwhelm. Plan to continue targeting functional word- finding and use of memory aids at frequency of once a week per POC given pt progress and report. Reviewed with Patient Goals,Progress Being Made,Home Exercise Program Patient/Caregiver Understanding Excellent Plan Amount of Therapy Recommended 3 Months Frequency of Treatment Once a Week Length of Session 30 Minutes Therapeutic Contents Client Education,Cognitive- Linguistic Training,Home Exercise Program Provided Patient/Caregiver Instruction Home Exercise Program,Plan of Care,Questions/Concerns Therapy Recommendations Continue with Current Program
--- NOTE | 2024-06-20 13:45 | ST.OPTN ---
Visit Care Team Role Provider Type Ely Chapin PA-C Attending Provider Advanced Trailer Chief Family Provider Primary Care Provider Referring Provider Address: [address] [place] [address], [id number] OPENER Treatment Note OPENER Treatment Note Start: 01/18/24 13:42 Freq: Status: Active Protocol: Document 06/20/24 13:34 SS (Rec: 06/20/24 13:45 SS [id number]) Speech Pathology Treatment Note Session Time Visit Start Time 12:20 Visit Stop Time 12:55 Total Visit Minutes 35 Visit Information Visit Number 19 Plan of Care Dates 04/04/24-07/03/24 Insurance Information [facility] Setting Treatment Setting Outpatient Care Visit Type Note Type Treatment Note Next Note Type Next Note Type Treatment Note General Information Patient History Brittanie Aguilar is a 73-year-old male who presents to this clinic for an evaluation and treatment of language and cognitive-communication concerns. Pt presented to the evaluation with his spouse, Melanie Aguilar (Liz). 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 He was at [facility] in the ICU unit for a month, and then admitted to rehabilitation at [facility] until discharge of November 20, 2023. He received home health speech therapy, which is now discontinued. Pt currently lives with his spouse who assists him with driving, medication management , household management, and finances following CVA. PMHx includes atrial fibrillation and hypertension. Pt?s spouse reports that pt initially presented with severe expressive aphasia, characterized primarily by jargon, which has since mostly resolved. Both pt and spouse noted residual word-finding difficulties during conversation and mildly imprecise speech when tired. Additionally, pt?s spouse noted decreased short-term memory, specifically when attempting to recall what happened earlier in the day, completing all steps during familiar routines (e.g., oral care), recalling safety needs during ambulation, and recalling names of familiar places and people. Pt reports his main goal for treatment is to improve his short-term memory, be able to converse with others, and ?get back to my normal self?. Since initial evaluation, Brittanie has been attending cognitive linguistic therapy with OPENER at this clinic for 10 visits and has made good progress toward his short term and long-term goals. Throughout the course of therapy, treatment has focused on use of compensatory word- finding strategies in conversation to increase his ability to effectively communicate with familiar and unfamiliar conversation partners. Additionally, treatment focused on developing compensatory strategies to remediate memory concerns, including the use of external aids to remember upcoming events and appointments. Subjective Identification Type Name Observations/Patient Presentation Pt arrived to the session on time with his and caregiver who joined him for the session. He was engaged and motivated throughout the session. Objective Short Term Goals 1. Patient will utilize compensatory word-finding strategies in 80% of opportunities independently to increase word-finding skills during simple conversational tasks. NEW GOAL 2. Patient will explore external compensatory strategies through education and application, in order to select 1-2 that are a best fit for daily needs (ex: calendar and writing lists). CONTINUE 3. Patient will participate in internal memory strategy (ex: visualization and rehearsal) education and training, in order to select 1-2 that are best fit for daily needs. CONTINUE Transit Department Clerk Goals 1. Patient will use word recall strategies independently in spontaneous conversation to minimize communication breakdowns, improve his ability to communicate effectively with others, and improve QoL. CONTINUE 2. Patient will increase memory skills using compensatory strategies and visual/auditory aids as trained in order increase safety during ADLs and promote independence. CONTINUE Treatment Activities Conversation about events/ appointments within the last week as well as hobbies and interests targeting circumlocution and multimodal compensatory strategies for word-finding (gesture, drawing , first letter, etc) during conversation to target carryover and generalization of word-finding skills to conversation and reduce need for cueing from communication partner. Initiated taking a deep breath and use of self- advocacy statement give me a second. I need to think to reduce frustration and pt getting overwhelmed during instances of anomia. Provided home practice as well as visual aids of strategies to reduce frustration. Assessment Patient Response to Treatment Good Rehab Potential Good Impairments Identified Expressive language,Cognitive communication Progress Towards Goals Good Progress Assessment of Overall Progress Improving Assessment of Improvement During conversation, Brittanie demonstrated occasional instances of anomia. His reported that he is typically successful in retrieving target word when his communication partner provides cueing, though still gets frustrated and overwhelmed when he cannot retrieve the word and ?shuts down?. Initiated use of taking a deep breath and self-advocacy phrase (both written on whiteboard as visual aid) to reduce frustration and increase self-confidence when ppt experiences word-finding difficulty. Today, he utilized circumlocution, similar/ related words, first letter/ sound, and semantic features following verbal cueing from OPENER during moments of word- finding difficulty. He benefited from consistent verbal cueing to use strategies. While he is able to utilize strategies effectively, he continues to have difficulty with initiating use on his own. Given cueing, he was able to effectively use circumlocution and other compensatory strategies in most opportunities. He required direct prompting to attend to visual aid and utilize deep breath and statement in order to reduce negative feelings of frustration/overwhelm. Increased ability to utilize word-finding strategies in conversation more independently today with verbal cueing as well as visual aid. Provided copies of visual aid on bright paper to place in central locations at home. Home practice provided targeting word-finding and use of new visual aid. Plan to continue targeting functional word-finding and use of memory aids at frequency of once a week per POC given pt progress and report. Reviewed with Patient Goals,Progress Being Made,Home Exercise Program Patient/Caregiver Understanding Excellent Plan Amount of Therapy Recommended 3 Months Frequency of Treatment Once a Week Length of Session 30 Minutes Therapeutic Contents Client Education,Cognitive- Linguistic Training,Home Exercise Program Provided Patient/Caregiver Instruction Home Exercise Program,Plan of Care,Questions/Concerns Therapy Recommendations Continue with Current Program
--- NOTE | 2024-06-27 16:40 | ST.OPTN ---
Visit Care Team Role Provider Type Ely Chapin PA-C Attending Provider Advanced Division Controller Family Provider Primary Care Provider Referring Provider Address: [address] [place] [address], [id number] TRANSFORMER REPAIRER Treatment Note TRANSFORMER REPAIRER Treatment Note Start: 01/18/24 13:42 Freq: Status: Active Protocol: Document 06/27/24 16:15 SS (Rec: 06/27/24 16:40 SS [id number]) Speech Pathology Treatment Note Session Time Visit Start Time 12:15 Visit Stop Time 12:53 Total Visit Minutes 38 Visit Information Visit Number 20 Plan of Care Dates 06/27/24-09/27/24 Insurance Information [facility] Setting Treatment Setting Outpatient Care Visit Type Note Type Treatment Note Next Note Type Next Note Type Progress Note General Information Patient History Brittanie Aguilar is a 73-year-old male who presents to this clinic for an evaluation and treatment of language and cognitive-communication concerns. Pt presented to the evaluation with his spouse, Melanie Aguilar (Liz). 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 He was at [facility] in the ICU unit for a month, and then admitted to rehabilitation at [facility] until discharge of November 20, 2023. He received home health speech therapy, which is now discontinued. Pt currently lives with his spouse who assists him with driving, medication management , household management, and finances following CVA. PMHx includes atrial fibrillation and hypertension. Pt?s spouse reports that pt initially presented with severe expressive aphasia, characterized primarily by jargon, which has since mostly resolved. Both pt and spouse noted residual word-finding difficulties during conversation and mildly imprecise speech when tired. Additionally, pt?s spouse noted decreased short-term memory, specifically when attempting to recall what happened earlier in the day, completing all steps during familiar routines (e.g., oral care), recalling safety needs during ambulation, and recalling names of familiar places and people. Pt reports his main goal for treatment is to improve his short-term memory, be able to converse with others, and ?get back to my normal self?. Since initial evaluation, Brittanie has been attending cognitive linguistic therapy with TRANSFORMER REPAIRER at this clinic for 20 visits and has made good progress toward his short term and long-term goals. Throughout the course of therapy, treatment has focused on use of compensatory word- finding strategies in conversation to increase his ability to effectively communicate with familiar and unfamiliar conversation partners. It has also included strategies on reducing frustration during instances of anomia. Additionally, treatment focused on developing compensatory strategies to remediate memory concerns, including the use of external aids to remember upcoming events and appointments as well as visual aids placed around the home. Subjective Identification Type Name Observations/Patient Presentation Pt arrived to the session on time with his and caregiver who did not accompany him to the session. He was engaged and motivated throughout the session. Objective Short Term Goals 1. Patient will utilize compensatory word-finding strategies in 80% of opportunities independently to increase word-finding skills during simple conversational tasks. 06/27/24: Continue goal. Brittanie is able to utilize trained strategies successfully in about 80% of opportunities given cueing. However, he continues to have difficulty utilizing strategies with use of visual aid only and his word-finding continues to be impacted by frustration. 2. Patient will participate in internal memory strategy (ex: visualization and rehearsal) education and training, in order to select 1-2 that are best fit for daily needs. 06/27/24: Continue goal. Goal not yet targeted during reporting period as other goals were prioritized. 3. Patient will complete recall tasks of names of family/friends/caregivers with 80% accuracy or more in three consecutive sessions following an errorless learning to review target names. NEW GOAL 4. Patient will accurately recall safe wheelchair use and demonstrate safe use (based on trained spaced retrieval phrase) in 80% of probes independently. NEW GOAL Discontinued/Met Goals: Patient will explore external compensatory strategies through education and application, in order to select 1-2 that are a best fit for daily needs (ex: calendar and writing lists). 06/27/24: Goal met. Pt utilizes calendar and daily memory log every day independently and references it regularly per caregiver and pt report. Retirement Goals 1. Patient will use word recall strategies independently in spontaneous conversation to minimize communication breakdowns, improve his ability to communicate effectively with others, and improve QoL. 06/27/24: Pt continues to require frequent cueing to utilize strategies in conversation. 2. Patient will increase memory skills using compensatory strategies and visual/auditory aids as trained in order increase safety during ADLs and promote independence. 3/12/25: Pt has made good progress with trained strategies/tools. Treatment to continue addressing additional memory needs (names , safe wheelchair use, etc). Treatment Activities Reviewed progress and updated POC based on pt and spouse report. Continued targeting word-finding in conversation with use of visual aid to increase independence with use of strategies and reduce frustration. Assessment Patient Response to Treatment Good Rehab Potential Good Impairments Identified Expressive language,Cognitive communication Progress Towards Goals Good Progress Assessment of Overall Progress Improving Assessment of Improvement Discussed progress with pt and spouse. Pt reported he continues to have word-finding difficulty in conversation and would like to continue targeting this short-term goal . He additionally reported difficulty with recall of names, including name of caregiver that he sees daily. He expressed that difficulty recalling names has made his feel uncomfortable and embarrassed during social situations and has led to occasional communication breakdowns. Pt?s spouse expressed that he has been having increasing difficulty recalling rules re: safe use of wheelchair, such as locking his breaks and ensuring his arms are in the frame, which has led to safety concerns. Pt and spouse expressed that they have noticed improvement in overall cognitive- communication function, though he would benefit from additional treatment to continue to increase his overall independence and quality of life. Conversation about events/ appointments within the last week as well as pt specific interests targeting circumlocution and multimodal compensatory strategies for word-finding (gesture, drawing , first letter, etc) during conversation to target carryover and generalization of word-finding skills to conversation and reduce need for cueing from communication partner. Continued to utilize visual aid with written strategies (deep breath and give me a second. I need to think) to reduce frustration and pt getting overwhelmed during instances of anomia. Pt had significant difficulty implementing strategies without TRANSFORMER REPAIRER cueing to reference visual aid and cueing to utilize circumlocution to retrieve target word. Given cueing, pt was able to retrieve target words in all opportunities. Home practice provided targeting word-finding and use of visual aid. Plan to continue targeting functional word-finding and use of memory aids at frequency of once a week per POC given pt progress and report. Progress note and POC completed today. Reviewed with Patient Goals,Progress Being Made,Home Exercise Program Patient/Caregiver Understanding Excellent Plan Amount of Therapy Recommended 3 Months Frequency of Treatment Once a Week Length of Session 30 Minutes Therapeutic Contents Client Education,Cognitive- Linguistic Training,Home Exercise Program Provided Patient/Caregiver Instruction Home Exercise Program,Plan of Care,Questions/Concerns Therapy Recommendations Continue with Current Program
--- NOTE | 2024-06-27 16:52 | ST.PROG ---
Visit Care Team Role Provider Type Ely Chapin PA-C Attending Provider Advanced Barge Worker Family Provider Primary Care Provider Referring Provider Address: [address] [place] [address], [id number] ELECTRIC BLASTING CAP ASSEMBLER Progress Note ELECTRIC BLASTING CAP ASSEMBLER Treatment Note Start: 01/18/24 13:42 Freq: Status: Active Protocol: Document 06/27/24 16:41 SS (Rec: 06/27/24 16:51 SS [id number]) Speech Pathology Treatment Note Visit Information Visit Number 20 Plan of Care Dates 06/27/24-09/27/24 Insurance Information [facility] Treatment Setting Outpatient Care Visit Type Note Type Progress Note Next Note Type Next Note Type Treatment Note General Information Patient History Brittanie Aguilar is a 73-year-old male who presents to this clinic for an evaluation and treatment of language and cognitive-communication concerns. Pt presented to the evaluation with his spouse, Melanie Aguilar (Liz). 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 He was at [facility] in the ICU unit for a month, and then admitted to rehabilitation at [facility] until discharge of November 20, 2023. He received home health speech therapy, which is now discontinued. Pt currently lives with his spouse who assists him with driving, medication management , household management, and finances following CVA. PMHx includes atrial fibrillation and hypertension. Pt?s spouse reports that pt initially presented with severe expressive aphasia, characterized primarily by jargon, which has since mostly resolved. Both pt and spouse noted residual word-finding difficulties during conversation and mildly imprecise speech when tired. Additionally, pt?s spouse noted decreased short-term memory, specifically when attempting to recall what happened earlier in the day, completing all steps during familiar routines (e.g., oral care), recalling safety needs during ambulation, and recalling names of familiar places and people. Pt reports his main goal for treatment is to improve his short-term memory, be able to converse with others, and ?get back to my normal self?. Since initial evaluation, Brittanie has been attending cognitive linguistic therapy with ELECTRIC BLASTING CAP ASSEMBLER at this clinic for 20 visits and has made good progress toward his short term and long-term goals. Throughout the course of therapy, treatment has focused on use of compensatory word- finding strategies in conversation to increase his ability to effectively communicate with familiar and unfamiliar conversation partners. It has also included strategies on reducing frustration during instances of anomia. Additionally, treatment focused on developing compensatory strategies to remediate memory concerns, including the use of external aids to remember upcoming events and appointments as well as visual aids placed around the home. Subjective Identification Type Name Observations/Patient Presentation Pt arrived to the session on time with his and caregiver who did not accompany him to the session. He was engaged and motivated throughout the session. Objective Short Term Goals 1. Patient will utilize compensatory word-finding strategies in 80% of opportunities independently to increase word-finding skills during simple conversational tasks. 06/27/24: Continue goal. Brittanie is able to utilize trained strategies successfully in about 80% of opportunities given cueing. However, he continues to have difficulty utilizing strategies with use of visual aid only and his word-finding continues to be impacted by frustration. 2. Patient will participate in internal memory strategy (ex: visualization and rehearsal) education and training, in order to select 1-2 that are best fit for daily needs. 06/27/24: Continue goal. Goal not yet targeted during reporting period as other goals were prioritized. 3. Patient will complete recall tasks of names of family/friends/caregivers with 80% accuracy or more in three consecutive sessions following an errorless learning to review target names. NEW GOAL 4. Patient will accurately recall safe wheelchair use and demonstrate safe use (based on trained spaced retrieval phrase) in 80% of probes independently. NEW GOAL Discontinued/Met Goals: Patient will explore external compensatory strategies through education and application, in order to select 1-2 that are a best fit for daily needs (ex: calendar and writing lists). 06/27/24: Goal met. Pt utilizes calendar and daily memory log every day independently and references it regularly per caregiver and pt report. Application Tester Goals 1. Patient will use word recall strategies independently in spontaneous conversation to minimize communication breakdowns, improve his ability to communicate effectively with others, and improve QoL. 06/27/24: Pt continues to require frequent cueing to utilize strategies in conversation. 2. Patient will increase memory skills using compensatory strategies and visual/auditory aids as trained in order increase safety during ADLs and promote independence. 06/27/24: Pt has made good progress with trained strategies/tools. Treatment to continue addressing additional memory needs (names , safe wheelchair use, etc). Treatment Activities Continued with use of compensatory strategies for word-finding in structured activities and in conversation with grading cueing in order to improve word retrieval skills and increase use of strategies. Further treatment targeting word retrieval and verbal fluency continued with circumlocution given graded cueing from ELECTRIC BLASTING CAP ASSEMBLER to facilitate increasing independence with task. Treatment for cognition/ memory including development of external aids based on pt's needs (calendar, daily log, visual aids around the home) with training in the use of these aids with frequent assessment of home use based on pt and spouse report. Assessment Patient Response to Treatment Good Rehab Potential Good Impairments Identified Expressive language,Cognitive communication Progress Towards Goals Good Progress Assessment of Overall Progress Improving Assessment of Improvement STG1: Patient will utilize compensatory word-finding strategies in 80% of opportunities independently to increase word-finding skills during simple conversational tasks. Continue goal. Pt is able to utilize compensatory strategies for word-finding including description and use of similar words in structured activities and conversation given cueing. However, he continues to require cueing and is utilizing strategies independently inconsistently as he gets frustrated/ overwhelmed easily. He will benefit from continued structured practice and graded cueing to promote carryover to everyday conversation. STG2: Patient will participate in internal memory strategy ( ex: visualization and rehearsal) education and training, in order to select 1 -2 that are best fit for daily needs. Continue goal. Goal not yet addressed during current reporting period. STG 3: Patient will explore external compensatory strategies through education and application, in order to select 1-2 that are a best fit for daily needs (ex: calendar and writing lists). Goal met. Pt utilizes calendar and daily memory log every day independently and references it regularly per caregiver and pt report. Overall, pt demonstrated slow, but steady progress with word -finding abilities. He demonstrates reduced frequency /severity during instances of anomia, though continues to rely on ELECTRIC BLASTING CAP ASSEMBLER and family/ caregiver cueing to utilize strategies. He will benefit from ongoing reinforcement to utilize strategies more independently. He has made excellent progress with trained strategies/tools for memory and is now consistently utilizing them. Pt and spouse report increased recall of appointments and events with use of external memory aids. Additional goals added to target memory strategies. Pt will continue to benefit from 1:[address] with the goal of providing therapeutic education and training in use of beneficial cognitive-communication compensatory strategies, specifically targeting word- finding and immediate and delayed memory for improved safety and independence in the home. Reviewed with Patient Goals,Progress Being Made,Home Exercise Program Patient/Caregiver Understanding Excellent Plan Amount of Therapy Recommended 2-3 Months Frequency of Treatment Once a Week Length of Session 30 Minutes Therapeutic Contents Client Education,Cognitive- Linguistic Training,Home Exercise Program Provided Patient/Caregiver Instruction Home Exercise Program,Plan of Care,Questions/Concerns Therapy Recommendations Continue with Current Program Visit Care Team Role Provider Type Ely Chapin PA-C Attending Provider Advanced Barge Worker Family Provider Primary Care Provider Referring Provider Specialty: Medical Address: [address] [place] [address], [id number] Email:
--- NOTE | 2024-06-27 16:53 | ST.OPPOC ---
Physical, Occupational & Speech Therapy At [facility] Visit Care Team Role Provider Type Ely Chapin PA-C Attending Provider [employer] Sergeant Family Provider Primary Care Provider Referring Provider Address: [address] [place] [address], [id number] Speech Pathology Plan of Care Plan of Care Dates 06/27/24-09/27/[address] Ely Chapin Patient History Brittanie Aguilar is a 73-year-old male who presents to this clinic for an evaluation and treatment of language and cognitive-communication concerns . Pt presented to the evaluation with his spouse, Melanie Aguilar (Liz). 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 He was at [facility] in the ICU unit for a month, and then admitted to rehabilitation at [facility] until discharge of November 20, 2023. He received home health speech therapy, which is now discontinued . Pt currently lives with his spouse who assists him with driving, medication management, household management, and finances following CVA . PMHx includes atrial fibrillation and hypertension. Pt?s spouse reports that pt initially presented with severe expressive aphasia, characterized primarily by jargon, which has since mostly resolved. Both pt and spouse noted residual word-finding difficulties during conversation and mildly imprecise speech when tired. Additionally, pt?s spouse noted decreased short-term memory, specifically when attempting to recall what happened earlier in the day, completing all steps during familiar routines (e.g., oral care), recalling safety needs during ambulation, and recalling names of familiar places and people. Pt reports his main goal for treatment is to improve his short-term memory, be able to converse with others, and ? get back to my normal self?. Since initial evaluation, Brittanie has been attending cognitive linguistic therapy with INSPECTOR WATCH ASSEMBLY at this clinic for 20 visits and has made good progress toward his short term and long-term goals. Throughout the course of therapy, treatment has focused on use of compensatory word-finding strategies in conversation to increase his ability to effectively communicate with familiar and unfamiliar conversation partners. It has also included strategies on reducing frustration during instances of anomia. Additionally, treatment focused on developing compensatory strategies to remediate memory concerns, including the use of external aids to remember upcoming events and appointments as well as visual aids placed around the home. Impairments Identified Expressive language,Cognitive communication Progress Towards Goals Good Progress Short Term Goals 1. Patient will utilize compensatory word- finding strategies in 80% of opportunities independently to increase word-finding skills during simple conversational tasks. 06/27/24: Continue goal. Brittanie is able to utilize trained strategies successfully in about 80% of opportunities given cueing. However, he continues to have difficulty utilizing strategies with use of visual aid only and his word-finding continues to be impacted by frustration. 2. Patient will participate in internal memory strategy (ex: visualization and rehearsal) education and training, in order to select 1-2 that are best fit for daily needs. 06/27/24: Continue goal. Goal not yet targeted during reporting period as other goals were prioritized. 3. Patient will complete recall tasks of names of family/friends/caregivers with 80% accuracy or more in three consecutive sessions following an errorless learning to review target names. NEW GOAL 4. Patient will accurately recall safe wheelchair use and demonstrate safe use (based on trained spaced retrieval phrase) in 80% of probes independently. NEW GOAL Discontinued/Met Goals: Patient will explore external compensatory strategies through education and application, in order to select 1-2 that are a best fit for daily needs (ex: calendar and writing lists). 06/27/24: Goal met. Pt utilizes calendar and daily memory log every day independently and references it regularly per caregiver and pt report. Custodial Goals 1. Patient will use word recall strategies independently in spontaneous conversation to minimize communication breakdowns, improve his ability to communicate effectively with others, and improve QoL. 06/27/24: Pt continues to require frequent cueing to utilize strategies in conversation. 2. Patient will increase memory skills using compensatory strategies and visual/auditory aids as trained in order increase safety during ADLs and promote independence. 06/27/24: Pt has made good progress with trained strategies/tools. Treatment to continue addressing additional memory needs (names, safe wheelchair use, etc). Comment: Electronically Signed by: LILIA Rogers 06/27/24 [id number] If you are in agreement with this Plan of Care, please return a signed and dated copy. I have reviewed this Plan of Care and certify that the skilled therapy services above are required to meet the patient?s needs. Physician Signature Date Printed Name and Credentials Clinical Instructor Signature Printed Name and Credentials
--- NOTE | 2024-07-04 16:18 | ST.OPTN ---
Visit Care Team Role Provider Type Ely Chapin PA-C Attending Provider Advanced Therapeutic Recreation Assistant Family Provider Primary Care Provider Referring Provider Address: [address] [place] [address], [id number] JOURNEYMAN MEAT CUTTER Treatment Note JOURNEYMAN MEAT CUTTER Treatment Note Start: 01/18/24 13:42 Freq: Status: Active Protocol: Document 07/04/24 16:17 SS (Rec: 07/04/24 16:18 SS [id number]) Speech Pathology Treatment Note Session Time Visit Start Time 12:15 Visit Stop Time 12:53 Total Visit Minutes 38 Visit Information Visit Number 21 Plan of Care Dates 06/27/24-09/27/24 Insurance Information [facility] Setting Treatment Setting Outpatient Care Visit Type Note Type Treatment Note Next Note Type Next Note Type Treatment Note General Information Patient History Brittanie Aguilar is a 73-year-old male who presents to this clinic for an evaluation and treatment of language and cognitive-communication concerns. Pt presented to the evaluation with his spouse, Melanie Aguilar (Liz). 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 He was at [facility] in the ICU unit for a month, and then admitted to rehabilitation at [facility] until discharge of November 20, 2023. He received home health speech therapy, which is now discontinued. Pt currently lives with his spouse who assists him with driving, medication management , household management, and finances following CVA. PMHx includes atrial fibrillation and hypertension. Pt?s spouse reports that pt initially presented with severe expressive aphasia, characterized primarily by jargon, which has since mostly resolved. Both pt and spouse noted residual word-finding difficulties during conversation and mildly imprecise speech when tired. Additionally, pt?s spouse noted decreased short-term memory, specifically when attempting to recall what happened earlier in the day, completing all steps during familiar routines (e.g., oral care), recalling safety needs during ambulation, and recalling names of familiar places and people. Pt reports his main goal for treatment is to improve his short-term memory, be able to converse with others, and ?get back to my normal self?. Since initial evaluation, Brittanie has been attending cognitive linguistic therapy with JOURNEYMAN MEAT CUTTER at this clinic for 20 visits and has made good progress toward his short term and long-term goals. Throughout the course of therapy, treatment has focused on use of compensatory word- finding strategies in conversation to increase his ability to effectively communicate with familiar and unfamiliar conversation partners. It has also included strategies on reducing frustration during instances of anomia. Additionally, treatment focused on developing compensatory strategies to remediate memory concerns, including the use of external aids to remember upcoming events and appointments as well as visual aids placed around the home. Subjective Identification Type Name Observations/Patient Presentation Pt arrived to the session on time with his and caregiver who accompanied him to the session. He was engaged and motivated throughout the session. Objective Short Term Goals 1. Patient will utilize compensatory word-finding strategies in 80% of opportunities independently to increase word-finding skills during simple conversational tasks. 06/27/24: Continue goal. Brittanie is able to utilize trained strategies successfully in about 80% of opportunities given cueing. However, he continues to have difficulty utilizing strategies with use of visual aid only and his word-finding continues to be impacted by frustration. 2. Patient will participate in internal memory strategy (ex: visualization and rehearsal) education and training, in order to select 1-2 that are best fit for daily needs. 06/27/24: Continue goal. Goal not yet targeted during reporting period as other goals were prioritized. 3. Patient will complete recall tasks of names of family/friends/caregivers with 80% accuracy or more in three consecutive sessions following an errorless learning to review target names. NEW GOAL 4. Patient will accurately recall safe wheelchair use and demonstrate safe use (based on trained spaced retrieval phrase) in 80% of probes independently. NEW GOAL Discontinued/Met Goals: Patient will explore external compensatory strategies through education and application, in order to select 1-2 that are a best fit for daily needs (ex: calendar and writing lists). 06/27/24: Goal met. Pt utilizes calendar and daily memory log every day independently and references it regularly per caregiver and pt report. [employer]junct [employer] Goals 1. Patient will use word recall strategies independently in spontaneous conversation to minimize communication breakdowns, improve his ability to communicate effectively with others, and improve QoL. 06/27/24: Pt continues to require frequent cueing to utilize strategies in conversation. 2. Patient will increase memory skills using compensatory strategies and visual/auditory aids as trained in order increase safety during ADLs and promote independence. 06/27/24: Pt has made good progress with trained strategies/tools. Treatment to continue addressing additional memory needs (names , safe wheelchair use, etc). Treatment Activities Education re: association as an internal memory strategy targeting name recall. Initiated errorless learning of names followed by recall activity for names (people pt engages with on a regular basis). Assessment Patient Response to Treatment Good Rehab Potential Good Impairments Identified Expressive language,Cognitive communication Progress Towards Goals Good Progress Assessment of Overall Progress Improving Assessment of Improvement Initiated use of association and errorless learning in order to target improved name recall as pt previously expressed he feels frustrated when he is unable to recall the names if people that he speaks with regularly. Began by identifying names pt would like to target as well as associations for each name. During recall of names after errorless learning, pt was 90% accurate today given 1-minute delay. He benefited from cueing to utilize self-talk, take deep breaths, and positive encouragement throughout the session when he became discouraged or overwhelmed. Targeted word- finding in conversation and during name recall activity. Pt was able to utilize previously trained word- finding strategies in about 60 % of the time independently, increasing to 100% given min cueing to utilize strategies and strategies written on whiteboard as visual aid. Plan to continue with errorless learning followed by recall of names as well as use of associations and spaced retrieval training to improve recall of terms pt has difficulty with (e.g., stroke, medication names, etc). Provided home practice targeting name recall. Continue at frequency of once a week given pt progress and report. Reviewed with Patient Goals,Progress Being Made,Home Exercise Program Patient/Caregiver Understanding Excellent Plan Amount of Therapy Recommended 2-3 Months Frequency of Treatment Once a Week Length of Session 30 Minutes Therapeutic Contents Client Education,Cognitive- Linguistic Training,Home Exercise Program Provided Patient/Caregiver Instruction Home Exercise Program,Plan of Care,Questions/Concerns Therapy Recommendations Continue with Current Program
--- NOTE | 2024-07-11 13:54 | ST.OPTN ---
Visit Care Team Role Provider Type Ely Chapin PA-C Attending Provider Advanced Carding Machine Feeder Family Provider Primary Care Provider Referring Provider Address: [address] [place] [address], [id number] DEVELOPMENT WRITER Treatment Note DEVELOPMENT WRITER Treatment Note Start: 01/18/24 13:42 Freq: Status: Active Protocol: Document 07/11/24 13:36 SS (Rec: 07/11/24 13:54 SS [id number]) Speech Pathology Treatment Note Session Time Visit Start Time 12:15 Visit Stop Time 12:55 Total Visit Minutes 40 Visit Information Visit Number 22 Plan of Care Dates 06/27/24-09/27/24 Insurance Information [facility] Setting Treatment Setting Outpatient Care Visit Type Note Type Treatment Note Next Note Type Next Note Type Treatment Note General Information Patient History Brittanie Aguilar is a 73-year-old male who presents to this clinic for an evaluation and treatment of language and cognitive-communication concerns. Pt presented to the evaluation with his spouse, Melanie Aguilar (Liz). 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 He was at [facility] in the ICU unit for a month, and then admitted to rehabilitation at [facility] until discharge of November 20, 2023. He received home health speech therapy, which is now discontinued. Pt currently lives with his spouse who assists him with driving, medication management , household management, and finances following CVA. PMHx includes atrial fibrillation and hypertension. Pt?s spouse reports that pt initially presented with severe expressive aphasia, characterized primarily by jargon, which has since mostly resolved. Both pt and spouse noted residual word-finding difficulties during conversation and mildly imprecise speech when tired. Additionally, pt?s spouse noted decreased short-term memory, specifically when attempting to recall what happened earlier in the day, completing all steps during familiar routines (e.g., oral care), recalling safety needs during ambulation, and recalling names of familiar places and people. Pt reports his main goal for treatment is to improve his short-term memory, be able to converse with others, and ?get back to my normal self?. Since initial evaluation, Brittanie has been attending cognitive linguistic therapy with DEVELOPMENT WRITER at this clinic for 20 visits and has made good progress toward his short term and long-term goals. Throughout the course of therapy, treatment has focused on use of compensatory word- finding strategies in conversation to increase his ability to effectively communicate with familiar and unfamiliar conversation partners. It has also included strategies on reducing frustration during instances of anomia. Additionally, treatment focused on developing compensatory strategies to remediate memory concerns, including the use of external aids to remember upcoming events and appointments as well as visual aids placed around the home. Subjective Identification Type Name Observations/Patient Presentation Pt arrived to the session on time with his and caregiver who did not accompany him to the session. He was engaged and motivated throughout the session. Objective Short Term Goals 1. Patient will utilize compensatory word-finding strategies in 80% of opportunities independently to increase word-finding skills during simple conversational tasks. 06/27/24: Continue goal. Brittanie is able to utilize trained strategies successfully in about 80% of opportunities given cueing. However, he continues to have difficulty utilizing strategies with use of visual aid only and his word-finding continues to be impacted by frustration. 2. Patient will participate in internal memory strategy (ex: visualization and rehearsal) education and training, in order to select 1-2 that are best fit for daily needs. 06/27/24: Continue goal. Goal not yet targeted during reporting period as other goals were prioritized. 3. Patient will complete recall tasks of names of family/friends/caregivers with 80% accuracy or more in three consecutive sessions following an errorless learning to review target names. NEW GOAL 4. Patient will accurately recall safe wheelchair use and demonstrate safe use (based on trained spaced retrieval phrase) in 80% of probes independently. NEW GOAL Discontinued/Met Goals: Patient will explore external compensatory strategies through education and application, in order to select 1-2 that are a best fit for daily needs (ex: calendar and writing lists). 06/27/24: Goal met. Pt utilizes calendar and daily memory log every day independently and references it regularly per caregiver and pt report. [facility] Goals 1. Patient will use word recall strategies independently in spontaneous conversation to minimize communication breakdowns, improve his ability to communicate effectively with others, and improve QoL. 06/27/24: Pt continues to require frequent cueing to utilize strategies in conversation. 2. Patient will increase memory skills using compensatory strategies and visual/auditory aids as trained in order increase safety during ADLs and promote independence. 3/12/25: Pt has made good progress with trained strategies/tools. Treatment to continue addressing additional memory needs (names , safe wheelchair use, etc). Treatment Activities Continued errorless learning of names followed by recall activity for names as well as association as an internal memory strategy. Targeted use of word-finding strategies and short-term recall during semi- structured conversation with graded cueing to utilize strategies as needed. Assessment Patient Response to Treatment Good Rehab Potential Good Impairments Identified Expressive language,Cognitive communication Progress Towards Goals Good Progress Assessment of Overall Progress Improving Assessment of Improvement Continued implementation of association and errorless learning in order to target improved name recall. At the beginning of the session, pt was able to recall 60% of names accurately. During recall of names after errorless learning and structured practice of associations, pt was 100% accurate given 35-minute delay . He reported increased ability to remember his caregiver?s and therapists? names since beginning to target name recall in treatment. Recommended pt continue daily practice of names at home and use name functionally as able (e.g., saying people?s names when he greets them) in order to promote carryover of learned skill. Targeted word-finding in conversation. Pt was able to utilize previously trained word-finding strategies about 90% of the time independently today. He demonstrated increased ability to use circumlocution and similar words and cued himself often ( e.g., ?it?s that chain restaurant that serves [place] food?) in order to retrieve the target word. Given min cueing, word-finding increased to 100%. Overall, pt expressed reduced frustration and feelings of overwhelm during daily conversations, stating ?I usually can use another word.? Of note, pt continues to utilize calendar and daily memory log as external memory aids. During conversation, he demonstrated good recall of events from the past week and month and could recall various details (e.g., movie names and plots, outing to [place], beginning to use CPAP). Recommended pt continue to reference daily memory log and use repetition and visualization to increase his short-term recall of important events. Pt expressed understanding and was agreeable to recommendations. Discussed progress with family /caregiver who reported they have also noted increased word -finding and short-term memory at home with use of trained strategies/tools. Plan to target use of internal and external strategies to improve recall of additional terms pt has difficulty with (e.g., stroke, medication names, etc) in next session. Provided home practice targeting name recall and word-finding. Continue at frequency of once a week given pt progress and report. Reviewed with Patient Goals,Progress Being Made,Home Exercise Program Patient/Caregiver Understanding Excellent Plan Amount of Therapy Recommended 2-3 Months Frequency of Treatment Once a Week Length of Session 30 Minutes Therapeutic Contents Client Education,Cognitive- Linguistic Training,Home Exercise Program Provided Patient/Caregiver Instruction Home Exercise Program,Plan of Care,Questions/Concerns Therapy Recommendations Continue with Current Program
--- NOTE | 2024-07-18 13:08 | ST.OPTN ---
Visit Care Team Role Provider Type Ely Chapin PA-C Attending Provider Advanced Warp Placer Family Provider Primary Care Provider Referring Provider Address: [address] [place] [address], [id number] FINAL INSPECTOR TRUCK TRAILER Treatment Note FINAL INSPECTOR TRUCK TRAILER Treatment Note Start: 01/18/24 13:42 Freq: Status: Active Protocol: Document 07/18/24 12:56 SS (Rec: 07/18/24 13:08 SS [id number]) Speech Pathology Treatment Note Session Time Visit Start Time 11:30 Visit Stop Time 12:15 Total Visit Minutes 45 Visit Information Visit Number 23 Plan of Care Dates 06/27/24-09/27/24 Insurance Information [facility] Setting Treatment Setting Outpatient Care Visit Type Note Type Treatment Note Next Note Type Next Note Type Treatment Note General Information Patient History Brittanie Aguilar is a 73-year-old male who presents to this clinic for an evaluation and treatment of language and cognitive-communication concerns. Pt presented to the evaluation with his spouse, Melanie Aguilar (Liz). 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 He was at [facility] in the ICU unit for a month, and then admitted to rehabilitation at [facility] until discharge of November 20, 2023. He received home health speech therapy, which is now discontinued. Pt currently lives with his spouse who assists him with driving, medication management , household management, and finances following CVA. PMHx includes atrial fibrillation and hypertension. Pt?s spouse reports that pt initially presented with severe expressive aphasia, characterized primarily by jargon, which has since mostly resolved. Both pt and spouse noted residual word-finding difficulties during conversation and mildly imprecise speech when tired. Additionally, pt?s spouse noted decreased short-term memory, specifically when attempting to recall what happened earlier in the day, completing all steps during familiar routines (e.g., oral care), recalling safety needs during ambulation, and recalling names of familiar places and people. Pt reports his main goal for treatment is to improve his short-term memory, be able to converse with others, and ?get back to my normal self?. Since initial evaluation, Brittanie has been attending cognitive linguistic therapy with FINAL INSPECTOR TRUCK TRAILER at this clinic for 20 visits and has made good progress toward his short term and long-term goals. Throughout the course of therapy, treatment has focused on use of compensatory word- finding strategies in conversation to increase his ability to effectively communicate with familiar and unfamiliar conversation partners. It has also included strategies on reducing frustration during instances of anomia. Additionally, treatment focused on developing compensatory strategies to remediate memory concerns, including the use of external aids to remember upcoming events and appointments as well as visual aids placed around the home. Subjective Identification Type Name Observations/Patient Presentation Pt arrived to the session on time with his and caregiver who did not accompany him to the session. He was engaged and motivated throughout the session. Objective Short Term Goals 1. Patient will utilize compensatory word-finding strategies in 80% of opportunities independently to increase word-finding skills during simple conversational tasks. 06/27/24: Continue goal. Brittanie is able to utilize trained strategies successfully in about 80% of opportunities given cueing. However, he continues to have difficulty utilizing strategies with use of visual aid only and his word-finding continues to be impacted by frustration. 2. Patient will participate in internal memory strategy (ex: visualization and rehearsal) education and training, in order to select 1-2 that are best fit for daily needs. 06/27/24: Continue goal. Goal not yet targeted during reporting period as other goals were prioritized. 3. Patient will complete recall tasks of names of family/friends/caregivers with 80% accuracy or more in three consecutive sessions following an errorless learning to review target names. NEW GOAL 4. Patient will accurately recall safe wheelchair use and demonstrate safe use (based on trained spaced retrieval phrase) in 80% of probes independently. NEW GOAL Discontinued/Met Goals: Patient will explore external compensatory strategies through education and application, in order to select 1-2 that are a best fit for daily needs (ex: calendar and writing lists). 06/27/24: Goal met. Pt utilizes calendar and daily memory log every day independently and references it regularly per caregiver and pt report. Mcc Goals 1. Patient will use word recall strategies independently in spontaneous conversation to minimize communication breakdowns, improve his ability to communicate effectively with others, and improve QoL. 06/27/24: Pt continues to require frequent cueing to utilize strategies in conversation. 2. Patient will increase memory skills using compensatory strategies and visual/auditory aids as trained in order increase safety during ADLs and promote independence. 3/12/25: Pt has made good progress with trained strategies/tools. Treatment to continue addressing additional memory needs (names , safe wheelchair use, etc). Treatment Activities Continued errorless learning of names followed by recall activity for names as well as association as an internal memory strategy. Targeted use of word-finding strategies during semi-structured conversation with graded cueing to utilize strategies as needed. Discussed effects of stress and fatigue on overall mental cognitive ability as pt noted particular difficulty when overwhelmed and tired. Assessment Patient Response to Treatment Good Rehab Potential Good Impairments Identified Expressive language,Cognitive communication Progress Towards Goals Good Progress Assessment of Overall Progress Improving Assessment of Improvement Continued implementation of association and errorless learning in order to target improved name recall. At the beginning of the session, pt was able to recall 60% of names accurately again. During recall of names after errorless learning and structured practice of associations, pt was 100% accurate given 30-minute delay . Pt reported increased ability to recall names, which is consistent with family/ caregiver report. Targeted word-finding in conversation. Pt was able to utilize circumlocution about 80% of the time independently today, increasing to 100% given min verbal cueing from FINAL INSPECTOR TRUCK TRAILER to describe target word. Overall, he continues to demonstrate reduced frequency/severity of anomia and is able to utilize trained strategies with increased independence. His and caregiver also noted decreased frustration during moments of word-finding difficulty, and expressed that Gu is now independently utilizing strategies more consistently. Pt, , and caregiver continue to report increased short-term memory recall and stated that external aids have been very helpful. Given increased difficulty with use of strategies/tools when feeling stressed, overwhelmed, or tired, FINAL INSPECTOR TRUCK TRAILER facilitated discussion re: impact of mental health, distractions, stress, and fatigue on overall cognitive function with metaphor of external factors filling the blocks in your brain that otherwise would be available. Provided education re: strategies to reduce the impact, including getting consistent sleep, delegating and prioritizing tasks, self- talk and deep breathing, and discussing energy levels and emotions with family/caregiver . Pt expressed understanding and stated he will trial some of these recommendations at home. Provided home practice targeting name recall and word -finding. Continue at frequency of once a week given pt progress and report. Reviewed with Patient Goals,Progress Being Made,Home Exercise Program Patient/Caregiver Understanding Excellent Plan Amount of Therapy Recommended 2-3 Months Frequency of Treatment Once a Week Length of Session 30 Minutes Therapeutic Contents Client Education,Cognitive- Linguistic Training,Home Exercise Program Provided Patient/Caregiver Instruction Home Exercise Program,Plan of Care,Questions/Concerns Therapy Recommendations Continue with Current Program
--- NOTE | 2024-07-25 16:48 | ST.OPTN ---
Visit Care Team Role Provider Type Ely Chapin PA-C Attending Provider Advanced Nutrition Helper Family Provider Primary Care Provider Referring Provider Address: [address] [place] [address], [id number] FIELD CROP FARMWORKER Treatment Note FIELD CROP FARMWORKER Treatment Note Start: 01/18/24 13:42 Freq: Status: Active Protocol: Document 07/25/24 16:31 SS (Rec: 07/25/24 16:48 SS Desktop) Speech Pathology Treatment Note Session Time Visit Start Time 15:15 Visit Stop Time 15:55 Total Visit Minutes 40 Visit Information Visit Number 24 Plan of Care Dates 06/27/24-09/27/24 Insurance Information [facility] Setting Treatment Setting Outpatient Care Visit Type Note Type Treatment Note Next Note Type Next Note Type Treatment Note General Information Patient History Brittanie Aguilar is a 73-year-old male who presents to this clinic for an evaluation and treatment of language and cognitive-communication concerns. Pt presented to the evaluation with his spouse, Melanie Aguilar (Liz). 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 He was at [facility] in the ICU unit for a month, and then admitted to rehabilitation at [facility] until discharge of November 20, 2023. He received home health speech therapy, which is now discontinued. Pt currently lives with his spouse who assists him with driving, medication management , household management, and finances following CVA. PMHx includes atrial fibrillation and hypertension. Pt?s spouse reports that pt initially presented with severe expressive aphasia, characterized primarily by jargon, which has since mostly resolved. Both pt and spouse noted residual word-finding difficulties during conversation and mildly imprecise speech when tired. Additionally, pt?s spouse noted decreased short-term memory, specifically when attempting to recall what happened earlier in the day, completing all steps during familiar routines (e.g., oral care), recalling safety needs during ambulation, and recalling names of familiar places and people. Pt reports his main goal for treatment is to improve his short-term memory, be able to converse with others, and ?get back to my normal self?. Since initial evaluation, Brittanie has been attending cognitive linguistic therapy with FIELD CROP FARMWORKER at this clinic for 20 visits and has made good progress toward his short term and long-term goals. Throughout the course of therapy, treatment has focused on use of compensatory word- finding strategies in conversation to increase his ability to effectively communicate with familiar and unfamiliar conversation partners. It has also included strategies on reducing frustration during instances of anomia. Additionally, treatment focused on developing compensatory strategies to remediate memory concerns, including the use of external aids to remember upcoming events and appointments as well as visual aids placed around the home. Subjective Identification Type Name Observations/Patient Presentation Pt arrived to the session on time with his and caregiver who accompanied him to the session. He was engaged and motivated throughout the session. Objective Short Term Goals 1. Patient will utilize compensatory word-finding strategies in 80% of opportunities independently to increase word-finding skills during simple conversational tasks. 06/27/24: Continue goal. Brittanie is able to utilize trained strategies successfully in about 80% of opportunities given cueing. However, he continues to have difficulty utilizing strategies with use of visual aid only and his word-finding continues to be impacted by frustration. 2. Patient will participate in internal memory strategy (ex: visualization and rehearsal) education and training, in order to select 1-2 that are best fit for daily needs. 06/27/24: Continue goal. Goal not yet targeted during reporting period as other goals were prioritized. 3. Patient will complete recall tasks of names of family/friends/caregivers with 80% accuracy or more in three consecutive sessions following an errorless learning to review target names. NEW GOAL 4. Patient will accurately recall safe wheelchair use and demonstrate safe use (based on trained spaced retrieval phrase) in 80% of probes independently. NEW GOAL Discontinued/Met Goals: Patient will explore external compensatory strategies through education and application, in order to select 1-2 that are a best fit for daily needs (ex: calendar and writing lists). 06/27/24: Goal met. Pt utilizes calendar and daily memory log every day independently and references it regularly per caregiver and pt report. News Specialist Goals 1. Patient will use word recall strategies independently in spontaneous conversation to minimize communication breakdowns, improve his ability to communicate effectively with others, and improve QoL. 06/27/24: Pt continues to require frequent cueing to utilize strategies in conversation. 2. Patient will increase memory skills using compensatory strategies and visual/auditory aids as trained in order increase safety during ADLs and promote independence. 06/27/24: Pt has made good progress with trained strategies/tools. Treatment to continue addressing additional memory needs (names , safe wheelchair use, etc). Treatment Activities Discussion of communication with spouse and caregiver and problem-solving during communication breakdowns. Targeted use of word-finding strategies during unstructured conversation with graded cueing to utilize strategies as needed. Assessment Patient Response to Treatment Good Rehab Potential Good Impairments Identified Expressive language,Cognitive communication Progress Towards Goals Good Progress Assessment of Overall Progress Improving Assessment of Improvement FIELD CROP FARMWORKER facilitated discussion re: ongoing communication challenges since last session. Pt?s spouse reported that pt seems to be demonstrating increase word retrieval during conversation, but continues to get frustrated when during instances of anomia and typically does not try to attempt to try to use trained strategies. Recommended pt?s spouse/caregiver ask pt if he would prefer to come back to the topic later or for his spouse/caregiver to provide the word. Additionally, recommended pt self-advocate by expressing his frustration and clearly identifying what he would like his communication partner to do in order to set clear communication expectations. Pt , spouse, and caregiver were all agreeable to these recommendations and will attempt to implement them at home. Targeted word-finding in conversation. Pt was able to utilize circumlocution in about 60% of instances of anomia, though his ability to recall to utilize this strategy continues to be impacted when he gets frustrated or overwhelmed. Given verbal cueing to utilize circumlocution and occasional phonemic/semantic cueing, word retrieval increased to about 90%. Brittanie also benefited today from FIELD CROP FARMWORKER writing german words on whiteboard to improve word- retrieval. Overall, he continues to demonstrate reduced frequency/severity of anomia and is able to utilize trained strategies with increased independence, though is not yet consistent and continues to rely on communication partner cueing. Provided home practice targeting word-finding during functional everyday scenarios. Continue at frequency of once a week given pt progress and report. Reviewed with Patient Goals,Progress Being Made,Home Exercise Program Patient/Caregiver Understanding Excellent Plan Amount of Therapy Recommended 2-3 Months Frequency of Treatment Once a Week Length of Session 30 Minutes Therapeutic Contents Client Education,Cognitive- Linguistic Training,Home Exercise Program Provided Patient/Caregiver Instruction Home Exercise Program,Plan of Care,Questions/Concerns Therapy Recommendations Continue with Current Program
--- NOTE | 2024-08-01 17:00 | ST.OPTN ---
Visit Care Team Role Provider Type Ely Chapin PA-C Attending Provider Advanced Supervisor Rides Family Provider Primary Care Provider Referring Provider Address: [address] [place] [address], [id number] CERAMIC MAKER DEMONSTRATOR Treatment Note CERAMIC MAKER DEMONSTRATOR Treatment Note Start: 01/18/24 13:42 Freq: Status: Active Protocol: Document 08/01/24 16:50 SS (Rec: 08/01/24 17:00 SS Desktop) Speech Pathology Treatment Note Session Time Visit Start Time 15:17 Visit Stop Time 15:55 Total Visit Minutes 38 Visit Information Visit Number 25 Plan of Care Dates 06/27/24-09/27/24 Insurance Information [facility] Setting Treatment Setting Outpatient Care Visit Type Note Type Treatment Note Next Note Type Next Note Type Treatment Note General Information Patient History Brittanie Aguilar is a 73-year-old male who presents to this clinic for an evaluation and treatment of language and cognitive-communication concerns. Pt presented to the evaluation with his spouse, Melanie Aguilar (Liz). 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 He was at [facility] in the ICU unit for a month, and then admitted to rehabilitation at [facility] until discharge of November 20, 2023. He received home health speech therapy, which is now discontinued. Pt currently lives with his spouse who assists him with driving, medication management , household management, and finances following CVA. PMHx includes atrial fibrillation and hypertension. Pt?s spouse reports that pt initially presented with severe expressive aphasia, characterized primarily by jargon, which has since mostly resolved. Both pt and spouse noted residual word-finding difficulties during conversation and mildly imprecise speech when tired. Additionally, pt?s spouse noted decreased short-term memory, specifically when attempting to recall what happened earlier in the day, completing all steps during familiar routines (e.g., oral care), recalling safety needs during ambulation, and recalling names of familiar places and people. Pt reports his main goal for treatment is to improve his short-term memory, be able to converse with others, and ?get back to my normal self?. Since initial evaluation, Brittanie has been attending cognitive linguistic therapy with CERAMIC MAKER DEMONSTRATOR at this clinic for 20 visits and has made good progress toward his short term and long-term goals. Throughout the course of therapy, treatment has focused on use of compensatory word- finding strategies in conversation to increase his ability to effectively communicate with familiar and unfamiliar conversation partners. It has also included strategies on reducing frustration during instances of anomia. Additionally, treatment focused on developing compensatory strategies to remediate memory concerns, including the use of external aids to remember upcoming events and appointments as well as visual aids placed around the home. Subjective Identification Type Name Observations/Patient Presentation Pt arrived to the session on time with his and caregiver who accompanied him to the session. He was engaged and motivated throughout the session. Objective Short Term Goals 1. Patient will utilize compensatory word-finding strategies in 80% of opportunities independently to increase word-finding skills during simple conversational tasks. 06/27/24: Continue goal. Brittanie is able to utilize trained strategies successfully in about 80% of opportunities given cueing. However, he continues to have difficulty utilizing strategies with use of visual aid only and his word-finding continues to be impacted by frustration. 2. Patient will participate in internal memory strategy (ex: visualization and rehearsal) education and training, in order to select 1-2 that are best fit for daily needs. 06/27/24: Continue goal. Goal not yet targeted during reporting period as other goals were prioritized. 3. Patient will complete recall tasks of names of family/friends/caregivers with 80% accuracy or more in three consecutive sessions following an errorless learning to review target names. NEW GOAL 4. Patient will accurately recall safe wheelchair use and demonstrate safe use (based on trained spaced retrieval phrase) in 80% of probes independently. NEW GOAL Discontinued/Met Goals: Patient will explore external compensatory strategies through education and application, in order to select 1-2 that are a best fit for daily needs (ex: calendar and writing lists). 06/27/24: Goal met. Pt utilizes calendar and daily memory log every day independently and references it regularly per caregiver and pt report. Drum Drier Operator Goals 1. Patient will use word recall strategies independently in spontaneous conversation to minimize communication breakdowns, improve his ability to communicate effectively with others, and improve QoL. 06/27/24: Pt continues to require frequent cueing to utilize strategies in conversation. 2. Patient will increase memory skills using compensatory strategies and visual/auditory aids as trained in order increase safety during ADLs and promote independence. 06/27/24: Pt has made good progress with trained strategies/tools. Treatment to continue addressing additional memory needs (names , safe wheelchair use, etc). Treatment Activities Continued errorless learning of names followed by recall activity for names as well as association and repetition as internal memory strategies. Initiated recall of family members as pt will be traveling for a wedding and has significant difficulty recalling names of family members who are not his spouse . Targeted use of word-finding strategies and short-term recall during semi-structured conversation with graded cueing to utilize strategies as needed. Assessment Patient Response to Treatment Good Rehab Potential Good Impairments Identified Expressive language,Cognitive communication Progress Towards Goals Good Progress Assessment of Overall Progress Improving Assessment of Improvement Continued implementation of association, repetition, and errorless learning in order to target improved name recall. At the beginning of the session, pt was able to recall 62% of names accurately. Accuracy increased to 100% given reminders to think about trained associations. During recall of names after errorless learning and structured practice of associations, pt was 100% accurate given 30-minute delay . Pt?s spouse and caregiver reported increased ability in recalling people?s names. Pt expressed he feels more confident when communicating with others as he is able to address them by their name and also discuss people when they are not present with more ease. Initiated list of family members pt would like to be able to remember when he attends a wedding next month. Recommended pt continue daily practice of names at home and use names in everyday life in order to promote carryover of learned skill, which he was agreeable to. Targeted word- finding in conversation. Pt was able to utilize previously trained word-finding strategies about 90% of the time independently today. He demonstrated increased ability to cue himself in order to retrieve the target word. He demonstrated increased word retrieval today with reduced need for cueing to utilize strategies. Plan to continue to target use of internal and external strategies to improve recall of names and word- finding in contextual conversation. Continue at frequency of once a week given pt progress and spouse/ caregiver report to date. Reviewed with Patient Goals,Progress Being Made,Home Exercise Program Patient/Caregiver Understanding Excellent Plan Amount of Therapy Recommended 2-3 Months Frequency of Treatment Once a Week Length of Session 30 Minutes Therapeutic Contents Client Education,Cognitive- Linguistic Training,Home Exercise Program Provided Patient/Caregiver Instruction Home Exercise Program,Plan of Care,Questions/Concerns Therapy Recommendations Continue with Current Program
--- NOTE | 2024-08-06 14:56 | ST.OPTN ---
Visit Care Team Role Provider Type Ely Chapin PA-C Attending Provider Advanced Needlemaker Family Provider Primary Care Provider Referring Provider Address: [address] [place] [address], [id number] WAREHOUSE RECEIVING CLERK Treatment Note WAREHOUSE RECEIVING CLERK Treatment Note Start: 01/18/24 13:42 Freq: Status: Active Protocol: Document 08/06/24 14:46 SS (Rec: 08/06/24 14:56 SS Desktop) Speech Pathology Treatment Note Session Time Visit Start Time 12:15 Visit Stop Time 12:52 Total Visit Minutes 37 Visit Information Visit Number 26 Plan of Care Dates 06/27/24-09/27/24 Insurance Information [facility] Setting Treatment Setting Outpatient Care Visit Type Note Type Treatment Note Next Note Type Next Note Type Treatment Note General Information Patient History Brittanie Aguilar is a 73-year-old male who presents to this clinic for an evaluation and treatment of language and cognitive-communication concerns. Pt presented to the evaluation with his spouse, Melanie Aguilar (Liz). 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 He was at [facility] in the ICU unit for a month, and then admitted to rehabilitation at [facility] until discharge of November 20, 2023. He received home health speech therapy, which is now discontinued. Pt currently lives with his spouse who assists him with driving, medication management , household management, and finances following CVA. PMHx includes atrial fibrillation and hypertension. Pt?s spouse reports that pt initially presented with severe expressive aphasia, characterized primarily by jargon, which has since mostly resolved. Both pt and spouse noted residual word-finding difficulties during conversation and mildly imprecise speech when tired. Additionally, pt?s spouse noted decreased short-term memory, specifically when attempting to recall what happened earlier in the day, completing all steps during familiar routines (e.g., oral care), recalling safety needs during ambulation, and recalling names of familiar places and people. Pt reports his main goal for treatment is to improve his short-term memory, be able to converse with others, and ?get back to my normal self?. Since initial evaluation, Brittanie has been attending cognitive linguistic therapy with WAREHOUSE RECEIVING CLERK at this clinic for 20 visits and has made good progress toward his short term and long-term goals. Throughout the course of therapy, treatment has focused on use of compensatory word- finding strategies in conversation to increase his ability to effectively communicate with familiar and unfamiliar conversation partners. It has also included strategies on reducing frustration during instances of anomia. Additionally, treatment focused on developing compensatory strategies to remediate memory concerns, including the use of external aids to remember upcoming events and appointments as well as visual aids placed around the home. Subjective Identification Type Name Observations/Patient Presentation Pt arrived to the session on time with his and caregiver who accompanied him to the session. He was engaged and motivated throughout the session. Objective Short Term Goals 1. Patient will utilize compensatory word-finding strategies in 80% of opportunities independently to increase word-finding skills during simple conversational tasks. 06/27/24: Continue goal. Brittanie is able to utilize trained strategies successfully in about 80% of opportunities given cueing. However, he continues to have difficulty utilizing strategies with use of visual aid only and his word-finding continues to be impacted by frustration. 2. Patient will participate in internal memory strategy (ex: visualization and rehearsal) education and training, in order to select 1-2 that are best fit for daily needs. 06/27/24: Continue goal. Goal not yet targeted during reporting period as other goals were prioritized. 3. Patient will complete recall tasks of names of family/friends/caregivers with 80% accuracy or more in three consecutive sessions following an errorless learning to review target names. NEW GOAL 4. Patient will accurately recall safe wheelchair use and demonstrate safe use (based on trained spaced retrieval phrase) in 80% of probes independently. NEW GOAL Discontinued/Met Goals: Patient will explore external compensatory strategies through education and application, in order to select 1-2 that are a best fit for daily needs (ex: calendar and writing lists). 06/27/24: Goal met. Pt utilizes calendar and daily memory log every day independently and references it regularly per caregiver and pt report. Cow Puncher Goals 1. Patient will use word recall strategies independently in spontaneous conversation to minimize communication breakdowns, improve his ability to communicate effectively with others, and improve QoL. 06/27/24: Pt continues to require frequent cueing to utilize strategies in conversation. 2. Patient will increase memory skills using compensatory strategies and visual/auditory aids as trained in order increase safety during ADLs and promote independence. 06/27/24: Pt has made good progress with trained strategies/tools. Treatment to continue addressing additional memory needs (names , safe wheelchair use, etc). Treatment Activities Continued errorless learning of names followed by recall activity for names as well as association and repetition as internal memory strategies. Targeted use of word-finding strategies and short-term recall during semi-structured conversation with graded cueing to utilize strategies as needed. Discussed progress and provided recommendations for home. Assessment Patient Response to Treatment Good Rehab Potential Good Impairments Identified Expressive language,Cognitive communication Progress Towards Goals Good Progress Assessment of Overall Progress Improving Assessment of Improvement Continued implementation of association, repetition, and errorless learning in order to target improved name recall of family, friends, and therapists. At the beginning of the session, pt was able to recall 84% of names accurately. Accuracy increased to 100% given WAREHOUSE RECEIVING CLERK providing trained associations or cueing pt to recall associations himself. During recall of names after errorless learning and structured practice of associations, pt was 100% accurate given 30-minute delay . Pt?s spouse and caregiver both reported increased name recall during functional situations with pt expressing that use of association and repetitions has been very helpful. Targeted word-finding and short-term recall in conversation. Pt was able to remember details from past week fairly accurately. He occasionally had difficulty recalling specific information , but was able to recall it given cueing from WAREHOUSE RECEIVING CLERK to remember other details from that situation. Pt was able to utilize previously trained word-finding strategies about 80% of the time independently today, increasing to 100% given min cueing to utilize strategies and describe target word/concept. Of note, his ability to retrieve names of places continues to increase. Pt demonstrated increased word retrieval and short-term recall today. WAREHOUSE RECEIVING CLERK cueing to utilize strategies gradually reduced as conversation progressed given pt success. Plan to continue to target use of internal and external strategies to improve recall of names, word-finding in contextual conversation, and functional short-term recall. Continue at frequency of once a week given pt progress and spouse/caregiver report to date. Reviewed with Patient Goals,Progress Being Made,Home Exercise Program Patient/Caregiver Understanding Excellent Plan Amount of Therapy Recommended 2-3 Months Frequency of Treatment Once a Week Length of Session 30 Minutes Therapeutic Contents Client Education,Cognitive- Linguistic Training,Home Exercise Program Provided Patient/Caregiver Instruction Home Exercise Program,Plan of Care,Questions/Concerns Therapy Recommendations Continue with Current Program
--- NOTE | 2024-08-13 14:46 | ST.OPTN ---
Visit Care Team Role Provider Type Ely Chapin PA-C Attending Provider [employer] Lieutenant Family Provider Primary Care Provider Referring Provider Address: [address] [place] [address], [id number] INTERIOR DESIGN PROFESSIONAL Treatment Note INTERIOR DESIGN PROFESSIONAL Treatment Note Start: 01/18/24 13:42 Freq: Status: Active Protocol: Document 08/13/24 14:31 SS (Rec: 08/13/24 14:46 SS Desktop) Speech Pathology Treatment Note Session Time Visit Start Time 13:50 Visit Stop Time 14:30 Total Visit Minutes 40 Visit Information Visit Number 27 Plan of Care Dates 06/27/24-09/27/24 Insurance Information [facility] Setting Treatment Setting Outpatient Care Visit Type Note Type Treatment Note Next Note Type Next Note Type Treatment Note General Information Patient History Brittanie Aguilar is a 73-year-old male who presents to this clinic for an evaluation and treatment of language and cognitive-communication concerns. Pt presented to the evaluation with his spouse, Melanie Aguilar (Liz). 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 He was at [facility] in the ICU unit for a month, and then admitted to rehabilitation at [facility] until discharge of November 20, 2023. He received home health speech therapy, which is now discontinued. Pt currently lives with his spouse who assists him with driving, medication management , household management, and finances following CVA. PMHx includes atrial fibrillation and hypertension. Pt?s spouse reports that pt initially presented with severe expressive aphasia, characterized primarily by jargon, which has since mostly resolved. Both pt and spouse noted residual word-finding difficulties during conversation and mildly imprecise speech when tired. Additionally, pt?s spouse noted decreased short-term memory, specifically when attempting to recall what happened earlier in the day, completing all steps during familiar routines (e.g., oral care), recalling safety needs during ambulation, and recalling names of familiar places and people. Pt reports his main goal for treatment is to improve his short-term memory, be able to converse with others, and ?get back to my normal self?. Since initial evaluation, Brittanie has been attending cognitive linguistic therapy with INTERIOR DESIGN PROFESSIONAL at this clinic for 20 visits and has made good progress toward his short term and long-term goals. Throughout the course of therapy, treatment has focused on use of compensatory word- finding strategies in conversation to increase his ability to effectively communicate with familiar and unfamiliar conversation partners. It has also included strategies on reducing frustration during instances of anomia. Additionally, treatment focused on developing compensatory strategies to remediate memory concerns, including the use of external aids to remember upcoming events and appointments as well as visual aids placed around the home. Subjective Identification Type Name Observations/Patient Presentation Pt arrived to the session on time with his and caregiver who did not accompany him to the session. He was engaged and motivated throughout the session. Objective Short Term Goals 1. Patient will utilize compensatory word-finding strategies in 80% of opportunities independently to increase word-finding skills during simple conversational tasks. 06/27/24: Continue goal. Brittanie is able to utilize trained strategies successfully in about 80% of opportunities given cueing. However, he continues to have difficulty utilizing strategies with use of visual aid only and his word-finding continues to be impacted by frustration. 2. Patient will participate in internal memory strategy (ex: visualization and rehearsal) education and training, in order to select 1-2 that are best fit for daily needs. 06/27/24: Continue goal. Goal not yet targeted during reporting period as other goals were prioritized. 3. Patient will complete recall tasks of names of family/friends/caregivers with 80% accuracy or more in three consecutive sessions following an errorless learning to review target names. NEW GOAL 4. Patient will accurately recall safe wheelchair use and demonstrate safe use (based on trained spaced retrieval phrase) in 80% of probes independently. NEW GOAL Discontinued/Met Goals: Patient will explore external compensatory strategies through education and application, in order to select 1-2 that are a best fit for daily needs (ex: calendar and writing lists). 06/27/24: Goal met. Pt utilizes calendar and daily memory log every day independently and references it regularly per caregiver and pt report. Care Home Goals 1. Patient will use word recall strategies independently in spontaneous conversation to minimize communication breakdowns, improve his ability to communicate effectively with others, and improve QoL. 06/27/24: Pt continues to require frequent cueing to utilize strategies in conversation. 2. Patient will increase memory skills using compensatory strategies and visual/auditory aids as trained in order increase safety during ADLs and promote independence. 3/12/25: Pt has made good progress with trained strategies/tools. Treatment to continue addressing additional memory needs (names , safe wheelchair use, etc). Treatment Activities Continued errorless learning of names followed by recall activity for names while implementing association and repetition as internal memory strategies. Implemented Semantic Feature Analysis to target anomia and use of circumlocution for improved word retrieval. Advanced to using principles of SFA during semi-structured conversation with graded cueing to utilize strategies as needed. Discussed progress and provided recommendations for home. Assessment Patient Response to Treatment Good Rehab Potential Good Impairments Identified Expressive language,Cognitive communication Progress Towards Goals Good Progress Assessment of Overall Progress Improving Assessment of Improvement Continued implementation of association, repetition, and errorless learning during name recall activity. Initially, pt was able to recall 88% of names accurately. Accuracy increased to 100% given INTERIOR DESIGN PROFESSIONAL providing trained associations . He was able to recall associations for most names given initial prompt. During recall of names after errorless learning and structured practice of associations, pt was 100% accurate at the end of the session. Pt demonstrated increased recall of names in contextualized situations as well. For example, he was able to call his caregiver by name and referred to his PT and OT by name when discussing appointments with them. During SFA activity, Brittanie was provided with a visual graphic organizer with six categories (category/group, use, action, properties, location, and association) and was asked to generate words across the six categories for personally-relevant, functional words. He produced an average of 12 words per target word, increasing to 25 words given semantic, phonemic , and gestural cueing. During conversation, Brittanie demonstrated occasional word- finding difficulty, particularly with names of places, names of companies, and less common everyday items . He was able to utilize circumlocution and SFA principles in about 70% of instances of anomia independently. Given min verbal cueing (?can you describe it??), he was able retrieve target words in 100% of opportunities. His level of frustration/overwhelm is now significantly lower than it has been in prior sessions. Brittanie has been highly motivated to implement tools/ strategies and continues to diligently complete home practice with assistance from his spouse. Continue at frequency of once a week given pt progress and spouse/ caregiver report to date. Reviewed with Patient Goals,Progress Being Made,Home Exercise Program Patient/Caregiver Understanding Excellent Plan Amount of Therapy Recommended 2-3 Months Frequency of Treatment Once a Week Length of Session 30 Minutes Therapeutic Contents Client Education,Cognitive- Linguistic Training,Home Exercise Program Provided Patient/Caregiver Instruction Home Exercise Program,Plan of Care,Questions/Concerns Therapy Recommendations Continue with Current Program
--- NOTE | 2024-08-22 16:14 | ST.OPTN ---
Visit Care Team Role Provider Type Ely Chapin PA-C Attending Provider Advanced [employer] Winder Family Provider Primary Care Provider Referring Provider Address: [address] [place] [address], [id number] PSYCHIATRIC ARNP Treatment Note PSYCHIATRIC ARNP Treatment Note Start: 01/18/24 13:42 Freq: Status: Active Protocol: Document 08/22/24 16:02 SS (Rec: 08/22/24 16:13 SS Desktop) Speech Pathology Treatment Note Session Time Visit Start Time 14:33 Visit Stop Time 15:08 Total Visit Minutes 35 Visit Information Visit Number 28 Plan of Care Dates 06/27/24-09/27/24 Insurance Information [facility] Setting Treatment Setting Outpatient Care Visit Type Note Type Treatment Note Next Note Type Next Note Type Treatment Note General Information Patient History Brittanie Aguilar is a 73-year-old male who presents to this clinic for an evaluation and treatment of language and cognitive-communication concerns. Pt presented to the evaluation with his spouse, Melanie Aguilar (Liz). 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 He was at [facility] in the ICU unit for a month, and then admitted to rehabilitation at [facility] until discharge of November 20, 2023. He received home health speech therapy, which is now discontinued. Pt currently lives with his spouse who assists him with driving, medication management , household management, and finances following CVA. PMHx includes atrial fibrillation and hypertension. Pt?s spouse reports that pt initially presented with severe expressive aphasia, characterized primarily by jargon, which has since mostly resolved. Both pt and spouse noted residual word-finding difficulties during conversation and mildly imprecise speech when tired. Additionally, pt?s spouse noted decreased short-term memory, specifically when attempting to recall what happened earlier in the day, completing all steps during familiar routines (e.g., oral care), recalling safety needs during ambulation, and recalling names of familiar places and people. Pt reports his main goal for treatment is to improve his short-term memory, be able to converse with others, and ?get back to my normal self?. Since initial evaluation, Brittanie has been attending cognitive linguistic therapy with PSYCHIATRIC ARNP at this clinic for 20 visits and has made good progress toward his short term and long-term goals. Throughout the course of therapy, treatment has focused on use of compensatory word- finding strategies in conversation to increase his ability to effectively communicate with familiar and unfamiliar conversation partners. It has also included strategies on reducing frustration during instances of anomia. Additionally, treatment focused on developing compensatory strategies to remediate memory concerns, including the use of external aids to remember upcoming events and appointments as well as visual aids placed around the home. Subjective Identification Type Name Observations/Patient Presentation Pt arrived to the session on time with his and caregiver who accompanied him to the session. He was engaged and motivated throughout the session. Objective Short Term Goals 1. Patient will utilize compensatory word-finding strategies in 80% of opportunities independently to increase word-finding skills during simple conversational tasks. 06/27/24: Continue goal. Brittanie is able to utilize trained strategies successfully in about 80% of opportunities given cueing. However, he continues to have difficulty utilizing strategies with use of visual aid only and his word-finding continues to be impacted by frustration. 2. Patient will participate in internal memory strategy (ex: visualization and rehearsal) education and training, in order to select 1-2 that are best fit for daily needs. 06/27/24: Continue goal. Goal not yet targeted during reporting period as other goals were prioritized. 3. Patient will complete recall tasks of names of family/friends/caregivers with 80% accuracy or more in three consecutive sessions following an errorless learning to review target names. NEW GOAL 4. Patient will accurately recall safe wheelchair use and demonstrate safe use (based on trained spaced retrieval phrase) in 80% of probes independently. NEW GOAL Discontinued/Met Goals: Patient will explore external compensatory strategies through education and application, in order to select 1-2 that are a best fit for daily needs (ex: calendar and writing lists). 06/27/24: Goal met. Pt utilizes calendar and daily memory log every day independently and references it regularly per caregiver and pt report. Group Home Goals 1. Patient will use word recall strategies independently in spontaneous conversation to minimize communication breakdowns, improve his ability to communicate effectively with others, and improve QoL. 06/27/24: Pt continues to require frequent cueing to utilize strategies in conversation. 2. Patient will increase memory skills using compensatory strategies and visual/auditory aids as trained in order increase safety during ADLs and promote independence. 06/27/24: Pt has made good progress with trained strategies/tools. Treatment to continue addressing additional memory needs (names , safe wheelchair use, etc). Treatment Activities Continued errorless learning of names followed by recall activity for names while implementing association and repetition as internal memory strategies. Implemented compensatory strategies for word-finding during unstructured conversation with graded cueing to utilize strategies as needed. Discussed additional treatment targets to further inform POC . Discussed progress and provided recommendations for home. Assessment Patient Response to Treatment Good Rehab Potential Good Impairments Identified Expressive language,Cognitive communication Progress Towards Goals Good Progress Assessment of Overall Progress Improving Assessment of Improvement Continued implementation of internal memory strategies and errorless learning during name recall activity. Initially, pt was able to recall 68% of names accurately . Accuracy increased to 95% given PSYCHIATRIC ARNP cueing pt to recall trained associations or providing them. During recall of names after errorless learning and structured practice of associations, pt was 100% accurate at the end of the session. Pt demonstrated decreased recall of names today, likely due to overall fatigue as he has participated in PT and OT prior to ST session. His and caregiver both reported increased overall recall of names. During conversation, Brittanie demonstrated instances of anomia x1 today, which is good improvement from prior sessions. He was able to retrieve the word, but required min verbal cueing to utilize circumlocution successfully. Again, his and caregiver reported overall decreased frustration and increase ability to retrieve words in conversation. Discussed strategies to remember to lock wheelchair breaks and place foot on foot rest, as Brittanie occasionally forgets to do so. Given principles of Spaced Retrieval Training, Brittanie was able to recall trained phrase ?leg up, Kalin up? given question ? what do you do before starting to move?? with 5-minute, 10- minute, and 20-minute delay. Recommended he continue to implement SRT with trained phrase while also completing physical action at home to increase generalization and create new habit. Pt and agreeable to this recommendation. Overall, good progress with implementation of trained strategies/tools for memory and word-finding. Plan to complete Memory Multifactorial Questionnaire next session to identify additional targets for treatment and further inform POC as pt is close to meeting his current short-term goals. Continue at frequency of once a week given pt progress and spouse/caregiver report to date. Reviewed with Patient Goals,Progress Being Made,Home Exercise Program Patient/Caregiver Understanding Excellent Plan Amount of Therapy Recommended 2-3 Months Frequency of Treatment Once a Week Length of Session 30 Minutes Therapeutic Contents Client Education,Cognitive- Linguistic Training,Home Exercise Program Provided Patient/Caregiver Instruction Home Exercise Program,Plan of Care,Questions/Concerns Therapy Recommendations Continue with Current Program
--- NOTE | 2024-08-31 17:04 | ST.OPTN ---
Visit Care Team Role Provider Type Ely Chapin PA-C Attending Provider Advanced Event Specialist Product Demonstrator Family Provider Primary Care Provider Referring Provider Address: [address] [place] [address], [id number] MANAGER STRATEGIC DEVELOPMENT Treatment Note MANAGER STRATEGIC DEVELOPMENT Treatment Note Start: 01/18/24 13:42 Freq: Status: Active Protocol: Document 08/31/24 16:54 SS (Rec: 08/31/24 17:04 SS Desktop) Speech Pathology Treatment Note Session Time Visit Start Time 11:33 Visit Stop Time 12:12 Total Visit Minutes 39 Visit Information Visit Number 29 Plan of Care Dates 06/27/24-09/27/24 Insurance Information [facility] Setting Treatment Setting Outpatient Care Visit Type Note Type Treatment Note Next Note Type Next Note Type Treatment Note General Information Patient History Brittanie Aguilar is a 73-year-old male who presents to this clinic for an evaluation and treatment of language and cognitive-communication concerns. Pt presented to the evaluation with his spouse, Melanie Aguilar (Liz). 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 He was at [facility] in the ICU unit for a month, and then admitted to rehabilitation at [facility] until discharge of November 20, 2023. He received home health speech therapy, which is now discontinued. Pt currently lives with his spouse who assists him with driving, medication management , household management, and finances following CVA. PMHx includes atrial fibrillation and hypertension. Pt?s spouse reports that pt initially presented with severe expressive aphasia, characterized primarily by jargon, which has since mostly resolved. Both pt and spouse noted residual word-finding difficulties during conversation and mildly imprecise speech when tired. Additionally, pt?s spouse noted decreased short-term memory, specifically when attempting to recall what happened earlier in the day, completing all steps during familiar routines (e.g., oral care), recalling safety needs during ambulation, and recalling names of familiar places and people. Pt reports his main goal for treatment is to improve his short-term memory, be able to converse with others, and ?get back to my normal self?. Since initial evaluation, Brittanie has been attending cognitive linguistic therapy with MANAGER STRATEGIC DEVELOPMENT at this clinic for 20 visits and has made good progress toward his short term and long-term goals. Throughout the course of therapy, treatment has focused on use of compensatory word- finding strategies in conversation to increase his ability to effectively communicate with familiar and unfamiliar conversation partners. It has also included strategies on reducing frustration during instances of anomia. Additionally, treatment focused on developing compensatory strategies to remediate memory concerns, including the use of external aids to remember upcoming events and appointments as well as visual aids placed around the home. Subjective Identification Type Name Observations/Patient Presentation Pt arrived to the session on time with his and caregiver who accompanied him to the session. He was engaged and motivated throughout the session. Objective Short Term Goals 1. Patient will utilize compensatory word-finding strategies in 80% of opportunities independently to increase word-finding skills during simple conversational tasks. 06/27/24: Continue goal. Brittanie is able to utilize trained strategies successfully in about 80% of opportunities given cueing. However, he continues to have difficulty utilizing strategies with use of visual aid only and his word-finding continues to be impacted by frustration. 2. Patient will participate in internal memory strategy (ex: visualization and rehearsal) education and training, in order to select 1-2 that are best fit for daily needs. 06/27/24: Continue goal. Goal not yet targeted during reporting period as other goals were prioritized. 3. Patient will complete recall tasks of names of family/friends/caregivers with 80% accuracy or more in three consecutive sessions following an errorless learning to review target names. NEW GOAL 4. Patient will accurately recall safe wheelchair use and demonstrate safe use (based on trained spaced retrieval phrase) in 80% of probes independently. NEW GOAL Discontinued/Met Goals: Patient will explore external compensatory strategies through education and application, in order to select 1-2 that are a best fit for daily needs (ex: calendar and writing lists). 06/27/24: Goal met. Pt utilizes calendar and daily memory log every day independently and references it regularly per caregiver and pt report. Signwriter Goals 1. Patient will use word recall strategies independently in spontaneous conversation to minimize communication breakdowns, improve his ability to communicate effectively with others, and improve QoL. 06/27/24: Pt continues to require frequent cueing to utilize strategies in conversation. 2. Patient will increase memory skills using compensatory strategies and visual/auditory aids as trained in order increase safety during ADLs and promote independence. 06/27/24: Pt has made good progress with trained strategies/tools. Treatment to continue addressing additional memory needs (names , safe wheelchair use, etc). Treatment Activities Completed the Memory Needs Questionnaire from [facility] to discuss progress with goals. Implemented compensatory strategies for word-finding during unstructured conversation with graded cueing to utilize strategies as needed. Plan to complete x1 additional session prior to discharging as pt and family would like to focus of PT/OT at this time and transition to practicing trained strategies /tools at home. Assessment Patient Response to Treatment Good Rehab Potential Good Impairments Identified Expressive language,Cognitive communication Progress Towards Goals Good Progress Assessment of Overall Progress Improving Assessment of Improvement Completed Memory needs checklist with pt. Pt, his , and his caregiver all noted excellent progress and no further concerns in the following areas: locating objects, remembering what to do, calendar events, remembering to complete tasks, directions, and if you?ve done something or not. Reviewed several strategies/ tools that have been previously trained in treatment that pt has been implementing at home to improve functional abilities in these areas. Pt reported ongoing difficulty with names, but was able to recall 90% of previously trained names today. He continues to benefit from use of association and repetitions as external memory aids. Discussed several strategies to increase pt?s ability to remember details from conversations, including repeating main german points, reducing internal/external distractions during conversations, and writing information down. Pt expressed he continues to make good progress with word-finding. 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 During conversation, Brittanie demonstrated instances of anomia x3 today, which is good improvement from prior sessions. He was able to retrieve the word independently in 2/3 opportunities, increasing to 3 /3 following min verbal cueing to utilize circumlocution successfully. Overall, good progress with implementation of trained strategies/tools for memory and word-finding. Pt has been diligent in implementing recommendations and strategies /tools at home with successful results and increased overall function and independence. Plan to complete x1 additional session prior to discharging from services. Reviewed with Patient Goals,Progress Being Made,Home Exercise Program Patient/Caregiver Understanding Excellent Plan Amount of Therapy Recommended 2-3 Months Frequency of Treatment Once a Week Length of Session 30 Minutes Therapeutic Contents Client Education,Cognitive- Linguistic Training,Home Exercise Program Provided Patient/Caregiver Instruction Home Exercise Program,Plan of Care,Questions/Concerns Therapy Recommendations Continue with Current Program
--- NOTE | 2024-09-05 16:34 | ST.OPTN ---
Visit Care Team Role Provider Type Ely Chapin PA-C Attending Provider Advanced Mechanical Manager Family Provider Primary Care Provider Referring Provider Address: [address] [place] [address], [id number] DIABETES MANAGER Treatment Note DIABETES MANAGER Treatment Note Start: 01/18/24 13:42 Freq: Status: Active Protocol: Document 09/05/24 16:12 SS (Rec: 09/05/24 16:34 SS Desktop) Speech Pathology Treatment Note Session Time Visit Start Time 13:45 Visit Stop Time 14:17 Total Visit Minutes 32 Visit Information Visit Number 30 Plan of Care Dates 06/27/24-09/27/24 Insurance Information [facility] Setting Treatment Setting Outpatient Care Visit Type Note Type Treatment Note Next Note Type Next Note Type Discharge Summary General Information Patient History Brittanie Aguilar is a 73-year-old male who presents to this clinic for an evaluation and treatment of language and cognitive-communication concerns. Pt presented to the evaluation with his spouse, Melanie Aguilar (Liz). 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 He was at [facility] in the ICU unit for a month, and then admitted to rehabilitation at [facility] until discharge of November 20, 2023. He received home health speech therapy, which is now discontinued. Pt currently lives with his spouse who assists him with driving, medication management , household management, and finances following CVA. PMHx includes atrial fibrillation and hypertension. Pt?s spouse reports that pt initially presented with severe expressive aphasia, characterized primarily by jargon, which has since mostly resolved. Both pt and spouse noted residual word-finding difficulties during conversation and mildly imprecise speech when tired. Additionally, pt?s spouse noted decreased short-term memory, specifically when attempting to recall what happened earlier in the day, completing all steps during familiar routines (e.g., oral care), recalling safety needs during ambulation, and recalling names of familiar places and people. Pt reports his main goal for treatment is to improve his short-term memory, be able to converse with others, and ?get back to my normal self?. Since initial evaluation, Brittanie has been attending cognitive linguistic therapy with DIABETES MANAGER at this clinic for 20 visits and has made good progress toward his short term and long-term goals. Throughout the course of therapy, treatment has focused on use of compensatory word- finding strategies in conversation to increase his ability to effectively communicate with familiar and unfamiliar conversation partners. It has also included strategies on reducing frustration during instances of anomia. Additionally, treatment focused on developing compensatory strategies to remediate memory concerns, including the use of external aids to remember upcoming events and appointments as well as visual aids placed around the home. Subjective Identification Type Name Observations/Patient Presentation Pt arrived to the session on time with his and caregiver who accompanied him to the session. He was engaged and motivated throughout the session. Objective Short Term Goals 1. Patient will utilize compensatory word-finding strategies in 80% of opportunities independently to increase word-finding skills during simple conversational tasks. 06/27/24: Continue goal. Brittanie is able to utilize trained strategies successfully in about 80% of opportunities given cueing. However, he continues to have difficulty utilizing strategies with use of visual aid only and his word-finding continues to be impacted by frustration. 09/05/24: Goal met. Brittanie is able to utilize selected word- finding strategies effectively in 90-100% of all opportunities with minimal frustration. 2. Patient will participate in internal memory strategy (ex: visualization and rehearsal) education and training, in order to select 1-2 that are best fit for daily needs. 06/27/24: Continue goal. Goal not yet targeted during reporting period as other goals were prioritized. 09/05/24: Goal met. Pt was able to utilize repetition and association for improved recall of names. 3. Patient will complete recall tasks of names of family/friends/caregivers with 80% accuracy or more in three consecutive sessions following an errorless learning to review target names. 09/05/24: Goal met. Pt is able to recall names with an average of 88% accuracy. He also reports increased name recall in everyday situations. 4. Patient will accurately recall safe wheelchair use and demonstrate safe use (based on trained spaced retrieval phrase) in 80% of probes independently. 09/05/24: Goal met. Pt and family no longer report unsafe wheelchair use, consistent with DIABETES MANAGER observations. Discontinued/Met Goals: Patient will explore external compensatory strategies through education and application, in order to select 1-2 that are a best fit for daily needs (ex: calendar and writing lists). 06/27/24: Goal met. Pt utilizes calendar and daily memory log every day independently and references it regularly per caregiver and pt report. Fpc Goals 1. Patient will use word recall strategies independently in spontaneous conversation to minimize communication breakdowns, improve his ability to communicate effectively with others, and improve QoL. 06/27/24: Pt continues to require frequent cueing to utilize strategies in conversation. 09/05/24: Pt is able to use word-finding strategies independently in conversation. He reports minimal communication breakdowns. 2. Patient will increase memory skills using compensatory strategies and visual/auditory aids as trained in order increase safety during ADLs and promote independence. 06/27/24: Pt has made good progress with trained strategies/tools. Treatment to continue addressing additional memory needs (names , safe wheelchair use, etc). 09/05/24: Pt rated his memory as an 8/10. He reports he is able to complete relevant ADLs and IADLs with use of selected strategies with minimal difficulty. He receives assistance from his spouse and caregiver as needed , but reports his confidence has increased. Treatment Activities Reviewed previously trained compensatory strategies for word-finding and memory. Discussed importance of self- advocacy to promote confidence with skills, reduce environmental barriers, and enhance independence. Discharge summary completed on this date. Assessment Patient Response to Treatment Good Rehab Potential Good Impairments Identified Expressive language,Cognitive communication Progress Towards Goals Good Progress,Appropriate for Discharge Assessment of Overall Progress Improving Assessment of Improvement Reviewed previously trained strategies. Pt and spouse reported he has made significant progress with use of word finding strategies. Pt now rarely gets frustrated and is able to implement word- finding strategies in most instances. He occasionally benefits from prompting, but is more receptive now than previously. Pt is also using repetition and association for name recall and reports he has been able to accurately recall names in most opportunities. He continues to utilize external memory aids, such as memory book and calendar, which he expressed have been very helpful and he has noted an increase in his short-term memory. Overall, pt demonstrates increased communicative confidence as well as increased attention and memory skills during contextualized tasks and conversation. Pt is appropriate to discharge at this time. He has been seen for 30 speech therapy visits addressing cognitive- communication in the setting of CVA since the start of care 01/18/24. He has attended at a frequency of once a week and has been motivated and engaged throughout. Treatment has included education and implementation of word-finding during structured tasks and in unstructured conversation to increase word retrieval and reduce negative attitudes toward own communication skills. Additionally, external /internal memory strategies were implemented to increase recall of appointments, events , details from conversations, and names. Since the start of care, pt has improved in self- perception of cognitive- communication, demonstrates minimal communication breakdowns, and has made significant progress with increasing his short-term memory skills. Pt and family have been diligent in daily HEP practice and implementation of recommendations. He plans to continue implementing trained strategies/tools to maintain the gains he had made with speech therapy services. The plan is to discharge the pt from speech therapy services as he has met his LTG and STG goals. Recommend he request a referral from his PCP if he notes changes with [id number] function. Pt and family agreeable to plan. Reviewed with Patient Goals,Progress Being Made,Home Exercise Program Patient/Caregiver Understanding Excellent Plan Amount of Therapy Recommended No Further Therapy Frequency of Treatment No Further Therapy Therapeutic Contents Client Education,Cognitive- Linguistic Training,Home Exercise Program Provided Patient/Caregiver Instruction Home Exercise Program,Plan of Care,Questions/Concerns Therapy Recommendations Discharge to Home Exercise Program,Discharge from Speech Therapy
== END 2024-09-12 10:19 | disposition home or self-care (01) ==
LOC: SP 13:45
PROVIDERS: Family Provider Physician Assistant; PCP Physician Assistant; Referring Provider Physician Assistant; Visit Provider Physician Assistant
DX: I63.9 Cerebral infarction, unspecified (principal)
CPT/HCPCS: 92507; 96125

== ENCOUNTER 2024-09-23 09:12 | Emergency (ER) | payer MEDICARE, SELFPAY ==
[2024-09-23 09:20] VITALS: BP 140/67; PULSE 57; RESP 17; TEMP 36.7; O2SAT 97; BMI 27.1
[2024-09-23 09:34] VITALS: O2SAT 97
[2024-09-23 09:35] VITALS: BP 140/67; PULSE 57; O2SAT 97
[2024-09-23 09:56] LABS: Appearance Urine UA CLOUDY; Bilirubin Urine UA NEGATIVE (NEGATIVE); Color Urine UA YELLOW; Glucose Urine UA NEGATIVE (Negative); Ketones Urine UA NEGATIVE (NEGATIVE); Leukocyte Esterase Urine UA TRACE (NEGATIVE); Nitrite Urine UA NEGATIVE (Negative); Occult Blood Urine UA 3+ (Negative); Protein Urine UA NEGATIVE (Negative); Specific Gravity Urine UA 1.015 (1.000-1.035); Urobilinogen Urine UA 0.2 E.U./dL (0.2)
[2024-09-23 10:19] LABS: Bacteria Urine Occasional (0-1); RBC Urine 30-100/HPF (0-5/HPF); Squamous Epithelial Cell Urine 0-1 /HPF (0-5/HPF); Urine Volume 10mL (spun); WBC Urine 5-10/HPF (0-5/HPF)
[2024-09-23 10:20] LABS: Culture Indicated Urine Specimen Cultured
--- NOTE | 2024-09-23 10:24 | ED.MALEGU ---
HPI - Male Genitourinary General Chief complaint: Urogenital-Male Stated complaint: Painless blood in urine t-1 Time Seen by Provider: 09/23/24 09:28 Source: patient, RN notes reviewed and old records reviewed Mode of arrival: Ambulatory Limitations: no limitations History of Present Illness HPI Narrative: 74-year-old male history of hemorrhagic stroke with intracranial shunt and prolonged hospitalization, hypertension, dyslipidemia, chronic hematuria follows with urology on aspirin daily. Patient presents with complaint of hematuria. Patient has had microscopic hematuria for some time but has not had visual hematuria for about 10 years. He was noticed some increase in frequency and urgency from his baseline. He states no fevers. No chest pain or shortness of breath. No nausea or vomiting. No back or flank pain, no supra it pubic pain. Patient states they have noticed some small clots. He has not had the sensation of retention. Saw Urology on the of last month was started on oxybutynin as he was having some increased urgency and frequency and had negative urine at that time. Has a follow up in November for cystoscopy. Patient notes he was on an aspirin daily has a multiple antihypertensives but no known coronary artery disease. Used to be on Eliquis but was stopped because of his hemorrhagic stroke which he was related to hypertension. Patient is allergic to sulfa. Patient's significant other at bedside notes that Vantin was the last antibiotic he was on for prior urinary tract infection. Former smoker, no regular alcohol, no recreational drugs. Related Data Home Medications ?Medication ?Instructions ?Recorded ?Confirmed amlodipine 10 mg tablet 10 mg PO DAILY 09/23/24 09/23/24 aspirin 81 mg tablet,delayed 81 mg PO DAILY 09/23/24 09/23/24 release (Ecotrin Low Strength) baclofen 10 mg tablet 15 mg PO 3XD 09/23/24 09/23/24 fluoxetine 60 mg tablet 60 mg PO DAILY 09/23/24 09/23/24 furosemide 20 mg tablet 20 mg PO DAILY 09/23/24 09/23/24 gabapentin 300 mg capsule mg PO 09/23/24 lisinopril 40 mg tablet 40 mg PO DAILY 09/23/24 09/23/24 metoprolol succinate 100 mg 100 mg PO DAILY 09/23/24 09/23/24 tablet,extended release 24 hr oxybutynin chloride 5 mg 5 mg PO DAILY 09/23/24 09/23/24 tablet,extended release 24 hr potassium chloride 20 mEq 20 meq PO BID 09/23/24 09/23/24 tablet,extended release(part/cryst) simethicone 80 mg chewable tablet 80 mg PO TID 09/23/24 09/23/24 (Gas Relief 80 (simethicone)) spironolactone 25 mg tablet 25 mg PO DAILY 09/23/24 09/23/24 Previous Rx's ?Medication ?Instructions ?Recorded cefpodoxime 200 mg tablet 200 mg PO BID 7 days #14 tabs 09/23/24 Allergies Allergy/AdvReac Type Severity Reaction Status Date / Time doxycycline Allergy Dizziness Verified 09/23/24 09:33 Sulfa (Sulfonamide Allergy Rash Verified 09/23/24 09:33 Antibiotics) Review of Systems Review of Systems ROS Unobtainable: All systems reviewed & are unremarkable except as noted in HPI and below Patient History Social History Smoking Status: Former smoker Smoking Status: Former smoker tobacco type: cigarettes alcohol intake frequency: holidays/special occasions only Exam Narrative Exam Narrative: GENERAL: Alert and oriented x three, male in mild distress HEENT: Head normocephalic, atraumatic, EOMI, pupils reactive, face symmetric, moist mucous membranes NECK: Supple, full range of motion CARDIOVASCULAR: Regular rate and rhythm without murmurs, rubs or gallops. RESPIRATORY: Breath sounds equal bilaterally, no wheezes rales or rhonchi. ABDOMEN: Soft, nontender. Normoactive bowel sounds all 4 quadrants. No guarding or rebound, rigidity, no mass : No CVA tenderness EXTREMITIES: Decreased use of right extremity, no clubbing or edema. Neurovascularly intact. NEUROLOGICAL: Cranial nerves II through XII grossly intact. Moving all extremities SKIN: Warm, dry, no petechiae, no rashes or lesions. Initial Vital Signs Initial Vital Signs: Vital Signs Temperature 98.1 F 09/23/24 09:20 Pulse Rate 57 L 09/23/24 09:20 Respiratory Rate 17 09/23/24 09:20 Blood Pressure 140/67 09/23/24 09:20 Pulse Oximetry 97 09/23/24 09:20 Oxygen Delivery Method Nasal Cannula 09/23/24 09:20 Course Orders Ordered: ED Orders 09/23/24 09:35 Urinalysis and Microscopic Stat Urine Culture Stat Vital Signs Vital signs: Vital Signs - 8 hr 09/23/24 09:20 09/23/24 09:34 09/23/24 09:35 Temperature 98.1 F Pulse Rate 57 L 57 L Respiratory Rate 17 Blood Pressure 140/67 Pulse Oximetry 97 97 97 Oxygen Delivery Method Nasal Cannula 09/23/24 09:35 09/23/24 11:29 09/23/24 11:30 Temperature Pulse Rate 63 63 Respiratory Rate Blood Pressure 140/67 Pulse Oximetry 98 97 Oxygen Delivery Method 09/23/24 11:30 09/23/24 11:36 Temperature Pulse Rate 60 Respiratory Rate 16 Blood Pressure 124/60 124/60 Pulse Oximetry 99 Oxygen Delivery Method Room Air MDM - Male Genitourinary Lab Data Labs: Lab Results 09/23/24 Range/Units 09:35 Urine Color Yellow Urine Appearance Cloudy Urine pH 8.0 (4.5-8.0) Ur Specific [place] 1.015 (1.000-1.035) Urine Protein Negative (Negative) Urine Glucose (UA) Negative (Negative) g/dL Urine Ketones Negative (NEGATIVE) Urine Occult Blood 3+ H (Negative) Urine Nitrate Negative (Negative) Urine Bilirubin Negative (NEGATIVE) Urine Urobilinogen 0.2 (0.2) E.U./dL Ur Leukocyte Esterase Trace H (NEGATIVE) Urine RBC 30-100/hpf H (0-5/HPF) Urine WBC 5-10/hpf H (0-5/HPF) Ur Squamous Epith Cells 0-1 /hpf (0-5/HPF) Urine Bacteria Occasional (0-1) (None) Ur Culture Indicated? Specimen cultured Vol Urine Centrifuged 10ml (spun) Urine Dip Bedside Urine Glucose Negative Bedside Urine Bilirubin - Negative Bedside Urine Ketone - Negative Urine Specific [place] 1.010 Bedside Urine Occult Blood +++ Bedside Urine pH 8 Bedside Urine Protein - Negative Bedside Urine Urobilinogen +/- 1mg Bedside Urine Nitrite - Negative Bedside Urine Leukocytes + 70 Esterase MDM Narrative Medical decision making narrative: UA positive for 3+ blood trace leuks, 30-100 RBCs. 5-10 WBCs 1 squamous, 1 bacteria, sinus rhythm and sent for culture. 74-year-old male with known history of microscopic hematuria presents for painless but visualized hematuria. Has not had issues for about 10 years where he has been able to visualize. Notes he has had some increased frequency and urgency recently. Patient UA shows potential infection. He was had prior cystoscopies that show an area that is recess it tends to bleed has cystoscopy scheduled in November. We will start oral antibiotic, patient was last treated with cefpodoxime based on his prior sensitivities we will repeat this. Patient does not appear to be septic or require any additional workup at this time but discussed for worsening symptoms or inability urinate to return to the emergency department and a reach out to urology at at this time to see if they can move up his cystoscopy to sooner. Discharge Plan Departure Patient Disposition: Home Clinical Impression: Hematuria Instructions: DI for Hematuria Activity Restrictions/Additional Instructions: Follow up with your urologist, call to let them know that your urinalysis does show some signs consistent with the infection. Take oral antibiotics until completed. Urine cultures typically take 72 hours to result, please call ([phone]) after this timeframe to follow up to see if your culture is positive versus negative. If negative then talk with your urologist about having a cystoscopy sooner. Prescription sent to [facility] in [place]. Please return for fevers, inability to urinate, rapidly worsening bleeding, lightheadedness or passing out, new abdominal back or flank pain or other new or concerning changes. Prescriptions: New cefpodoxime 200 mg tablet 200 mg PO BID 7 Days Qty: 14 0RF Rx Instructions: must administer with a meal/food No Action amlodipine 10 mg tablet 10 mg PO DAILY baclofen 10 mg tablet 15 mg PO 3XD gabapentin 300 mg capsule PO furosemide 20 mg tablet 20 mg PO DAILY fluoxetine 60 mg tablet 60 mg PO DAILY metoprolol succinate 100 mg tablet extended release 24 hr 100 mg PO DAILY spironolactone 25 mg tablet 25 mg PO DAILY potassium chloride 20 mEq tablet,ER particles/crystals 20 meq PO BID oxybutynin chloride 5 mg tablet extended release 24hr 5 mg PO DAILY lisinopril 40 mg tablet 40 mg PO DAILY aspirin [Ecotrin Low Strength] 81 mg tablet,delayed release (DR/EC) 81 mg PO DAILY simethicone [Gas Relief 80 (simethicone)] 80 mg tablet,chewable 80 mg PO TID Rx Instructions: after meals Referrals: Ely Chapin PA-C [Primary Care Provider, Medical] Stand Alone Forms: Patient Portal/API
[2024-09-23 11:29] VITALS: PULSE 63; O2SAT 98
[2024-09-23 11:30] VITALS: BP 124/60; PULSE 63; O2SAT 97
[2024-09-23 11:36] VITALS: BP 124/60; PULSE 60; RESP 16; O2SAT 99
--- NOTE | 2024-09-26 10:09 | PC.NURSE ---
Spouse, emergency contact, called to verify urine culture results.
== END 2024-09-23 11:37 | disposition home or self-care (01) ==
PROVIDERS: Emergency Provider Emergency Medicine; Family Provider Physician Assistant; PCP Physician Assistant
DX: R31.9 Hematuria, unspecified (principal)
CPT/HCPCS: 81001; 81003; 87086; 99282; 99284